=== PATIENT | male | born 1955 ===

== ENCOUNTER → 2020-04-07 10:55 | Outpatient (BNV) | payer MEDICARE, OTHER, SELFPAY | PROVIDERS: PCP Nurse Practitioner Family; Visit Provider Internal Medicine | DX: E83.119 Hemochromatosis, unspecified (principal) | CPT/HCPCS: 99212; 99213; 99214 ==

== ENCOUNTER 2020-04-09 11:04 | Outpatient (REF) | payer MEDICARE, OTHER, SELFPAY | END 2020-04-09 11:05 | disposition home or self-care (01) | LOC: HO.BBR 11:04 | PROVIDERS: Visit Provider Internal Medicine | DX: E83.110 Hereditary hemochromatosis (principal) | CPT/HCPCS: 99195 ==

== ENCOUNTER 2020-06-22 11:59 | Outpatient (REF) | payer MEDICARE, OTHER, SELFPAY | END 2020-06-22 12:00 | disposition home or self-care (01) | LOC: HO.BBR 11:59 | PROVIDERS: Visit Provider Internal Medicine | DX: Z13.89 Encounter for screening for other disorder (principal) ==

== ENCOUNTER 2020-07-15 07:32 | Outpatient (REF) | payer MEDICARE, OTHER, SELFPAY ==
[2020-07-15 08:27] LABS: Alanine Aminotransferase 23 U/L (0-40); Albumin Level 4.2 g/dL (3.5-5.0); Alkaline Phosphatase 55 U/L (39-117); Anion Gap 11 (12-20); Aspartate Amino Transferase 16 U/L (5-37); Bilirubin Total 0.4 mg/dL (0.0-1.0); Blood Urea Nitrogen 22 mg/dL (9-16); Calcium 9.1 mg/dL (8.4-10.2); Carbon Dioxide 28 mmol/L (22-29); Chloride 107 mmol/L (96-108); Cholesterol 166 mg/dL; Estimated Glomerular Filt Rate 51; Glucose Fasting 112 mg/dL (60-99); HDL Cholesterol 36 mg/dL; LDL Cholesterol Calculated 108 mg/dl; Potassium 4.3 mmol/l (3.3-5.1); Sodium 142 mmol/L (135-145); Total Protein 6.7 g/dL (6.5-8.0); Triglycerides 114 mg/dL
[2020-07-15 08:49] LABS: TSH reflex Free T4 2.46 mIU/mL (0.32-4.0)
== END 2020-07-15 07:33 | disposition home or self-care (01) ==
LOC: HO.LAB 07:32
PROVIDERS: PCP Nurse Practitioner Family; Visit Provider Nurse Practitioner Family
DX: E78.5 Hyperlipidemia, unspecified (principal)
CPT/HCPCS: 36415; 80053; 80061; 84443

== ENCOUNTER 2020-10-21 12:02 | Outpatient (REF) | payer MEDICARE, OTHER, SELFPAY | END 2020-10-21 12:03 | disposition home or self-care (01) | LOC: HO.ONC 12:02 | PROVIDERS: Visit Provider Internal Medicine | DX: Z13.89 Encounter for screening for other disorder (principal) ==

== ENCOUNTER 2021-05-18 07:48 | Outpatient (REF) | payer MEDICARE, OTHER, SELFPAY ==
[2021-05-18 10:37] LABS: Appearance Urine CLEAR; Color Urine YELLOW; Glucose Urine UA NEG (NEG); Leukocyte Esterase Urine NEG (NEG); Nitrite Urine NEG (NEG); Specific Gravity - Urine 1.015 (1.005-1.025); UACC Culture Trigger NO; Urine Blood TRACE (NEG); Urine Ketones NEG (NEG); Urine Protein NEG (NEG-TRACE)
[2021-05-18 10:39] LABS: Alanine Aminotransferase 25 U/L (0-40); Albumin Level 4.3 g/dL (3.5-5.0); Alkaline Phosphatase 49 U/L (39-117); Anion Gap 13 (12-20); Aspartate Amino Transferase 21 U/L (5-37); Bilirubin Total 0.9 mg/dL (0.0-1.0); Blood Urea Nitrogen 19 mg/dL (9-16); Calcium 9.4 mg/dL (8.4-10.2); Carbon Dioxide 25 mmol/L (22-29); Chloride 107 mmol/L (96-108); Cholesterol 171 mg/dL; Estimated Glomerular Filt Rate 57; Glucose Fasting 103 mg/dL (60-99); HDL Cholesterol 39 mg/dL; LDL Cholesterol Calculated 116 mg/dl; Potassium 4.2 mmol/L (3.3-5.1); Sodium 141 mmol/L (135-145); Total Protein 6.7 g/dL (6.5-8.0); Triglycerides 82 mg/dL
[2021-05-18 10:44] LABS: TSH reflex Free T4 2.11 uIU/mL (0.32-4.0)
[2021-05-18 10:50] LABS: RBC Urine 0-2 /HPF (0); WBC Urine 0 /HPF (0-4)
== END 2021-05-18 07:49 | disposition home or self-care (01) ==
LOC: HO.10HDL 07:48
PROVIDERS: Visit Provider Nurse Practitioner Family
DX: E78.5 Hyperlipidemia, unspecified (principal)
CPT/HCPCS: 36415; 80053; 80061; 81001; 84443

== ENCOUNTER 2021-06-24 11:02 | Outpatient (REF) | payer MEDICARE, OTHER, SELFPAY ==
[2021-06-24 14:01] LABS: Appearance Urine CLEAR; Glucose Urine UA NEG (NEG); Leukocyte Esterase Urine NEG (NEG); Nitrite Urine NEG (NEG); Specific Gravity - Urine <= 1.005 (1.005-1.025); Urine Blood TRACE (NEG); Urine Ketones NEG (NEG); Urine Protein NEG (NEG-TRACE)
[2021-06-24 14:20] LABS: RBC Urine 0 /HPF (0); WBC Urine 0 /HPF (0-4)
[2021-06-25 07:24] LABS: Urine Cytology See Pathology rpt
== END 2021-06-24 11:03 | disposition home or self-care (01) ==
LOC: HO.10HDL 11:02
PROVIDERS: Visit Provider Nurse Practitioner Family
DX: R31.29 Other microscopic hematuria (principal)
CPT/HCPCS: 81001; 87086; 88112

== ENCOUNTER 2021-11-30 07:30 | Outpatient (REF) | payer MEDICARE, OTHER, SELFPAY ==
[2021-11-30 07:49] LABS: MANUAL DIFF FLAG NO
[2021-11-30 08:19] LABS: Basophils Percent Auto 0.5 % (0-2); Eosinophils Absolute Auto 0.2 X10*3/uL (0.0-0.4); Eosinophils Percent Auto 3.3 % (0-4); Hematocrit 45.6 % (42.0-52.0); Hemoglobin 15.7 g/dl (14.0-18.0); Imm Gran Abs Auto 0.02 X10*3/uL (0.00-0.03); Imm Gran Pct Auto 0.3 % (0.0-0.4); Lymphocytes Percent Auto 32.4 % (20-40); Mean Corpuscular HGB Conc 34.4 g/dl (31.0-36.0); Mean Corpuscular Hemoglobin 29.6 pg (27.0-33.0); Mean Corpuscular Volume 85.9 fL (80.0-98.0); Monocytes Absolute Auto 0.5 X10*3/uL (0.1-1.2); Monocytes Percent Auto 7.8 % (2-11); Neutrophils Absolute Auto 3.4 x10*3/uL (2.0-8.3); Neutrophils Percent Auto 55.7 % (45-73); Platelet Count 176 X10*3/uL (160-400); Red Blood Count 5.31 X10*6/uL (4.60-5.80); Red Cell Distribution Width 12.5 % (11.0-16.0); White Blood Count 6.1 X10*3/uL (4.8-10.8)
[2021-11-30 08:32] LABS: Appearance Urine CLEAR; Color Urine STRAW; Glucose Urine UA NEG (NEG); Leukocyte Esterase Urine NEG (NEG); Nitrite Urine NEG (NEG); UACC Culture Trigger NO; Urine Blood 1+ (NEG); Urine Ketones NEG (NEG); Urine Protein NEG (NEG-TRACE)
[2021-11-30 08:36] LABS: Alanine Aminotransferase 29 U/L (0-40); Albumin Level 4.3 g/dL (3.5-5.0); Alkaline Phosphatase 48 U/L (39-117); Anion Gap 11 (12-20); Aspartate Amino Transferase 23 U/L (5-37); Bilirubin Total 0.8 mg/dL (0.0-1.0); Blood Urea Nitrogen 22 mg/dL (9-16); Calcium 9.3 mg/dL (8.4-10.2); Carbon Dioxide 26 mmol/L (22-29); Chloride 107 mmol/L (96-108); Cholesterol 170 mg/dL; Estimated Glomerular Filt Rate 46; Glucose Fasting 104 mg/dL (60-99); HDL Cholesterol 40 mg/dL; LDL Cholesterol Calculated 117 mg/dl; Potassium 4.2 mmol/L (3.3-5.1); Sodium 140 mmol/L (135-145); Total Protein 6.8 g/dL (6.5-8.0); Triglycerides 67 mg/dL
[2021-11-30 08:56] LABS: Sperm Urine NOTED; WBC Urine 0 /HPF (0-4)
[2021-11-30 09:00] LABS: Prostate Specific Antigen Scr 0.43 ng/mL (<0.05-4.0); TSH reflex Free T4 1.63 uIU/mL (0.32-4.0); Vitamin D 25-OH Total 41.9 ng/mL (>30)
== END 2021-11-30 07:31 | disposition home or self-care (01) ==
LOC: HO.LAB 07:30
PROVIDERS: PCP Nurse Practitioner Family; Visit Provider Nurse Practitioner Family
DX: Z12.5 Encounter for screening for malignant neoplasm of prostate (principal); E78.5 Hyperlipidemia, unspecified; E55.9 Vitamin D deficiency, unspecified
CPT/HCPCS: 36415; 80053; 80061; 81001; 82306; 84153; 84443; 85025

== ENCOUNTER 2021-12-01 15:01 | Outpatient (REF) | payer MEDICARE, OTHER, SELFPAY ==
[2021-12-01 16:05] LABS: Blood Urea Nitrogen 18 mg/dL (9-16); Estimated Glomerular Filt Rate 56
== END 2021-12-01 15:02 | disposition home or self-care (01) ==
LOC: HO.LAB 15:01
PROVIDERS: Visit Provider Nurse Practitioner Family
DX: R79.89 Other specified abnormal findings of blood chemistry (principal)
CPT/HCPCS: 36415; 82565; 84520

== ENCOUNTER 2021-12-02 | Outpatient (REF) | payer MEDICARE, OTHER, SELFPAY ==
[2021-12-02 14:40] LABS: Appearance Urine CLEAR; Color Urine YELLOW; Glucose Urine UA NEG (NEG); Leukocyte Esterase Urine NEG (NEG); Nitrite Urine NEG (NEG); Specific Gravity - Urine 1.015 (1.005-1.025); UACC Culture Trigger NO; Urine Blood TRACE (NEG); Urine Ketones NEG (NEG); Urine Protein NEG (NEG-TRACE)
[2021-12-02 14:52] LABS: RBC Urine 0 /HPF (0); WBC Urine 0 /HPF (0-4)
== END 2021-12-02 00:01 | disposition home or self-care (01) ==
LOC: HO.LNP
PROVIDERS: Visit Provider Nurse Practitioner Family
DX: E78.5 Hyperlipidemia, unspecified (principal)
CPT/HCPCS: 81001

== ENCOUNTER 2022-01-26 09:04 | Outpatient (REF) | payer MEDICARE, OTHER, SELFPAY ==
[2022-01-27 17:07] LABS: Lyme Abs Screen <0.90 index
[2022-01-28 13:17] LABS: A. Phagocytphilium DNA,RT-PCR NOT DETECTED (NOT DETECTED); Babesia Microti DNA, RT-PCR NOT DETECTED (NOT DETECTED); Borrelia Miyamotoi,DNA RT-PCR NOT DETECTED (NOT DETECTED); E.Chaffeensis DNA RT-PCR NOT DETECTED (NOT DETECTED); Lyme(Borrelia ssp)DNA RT-PCR NOT DETECTED (NOT DETECTED)
[2022-01-29 06:56] LABS: Source-Tick borne disease BLOOD
== END 2022-01-26 09:05 | disposition home or self-care (01) ==
LOC: HO.HMGCLDS 09:04
PROVIDERS: PCP Nurse Practitioner Family; Visit Provider Physician Assistant
DX: R21 Rash and other nonspecific skin eruption (principal)
CPT/HCPCS: 36415; 86617; 86618; 87798; 87801

== ENCOUNTER 2022-02-08 13:19 | Outpatient (REF) | payer MEDICARE, OTHER, SELFPAY ==
[2022-02-08 14:01] LABS: Basophils Percent Auto 0.5 % (0-2); Eosinophils Absolute Auto 0.1 X10*3/uL (0.0-0.4); Eosinophils Percent Auto 1.5 % (0-4); Hematocrit 47.6 % (42.0-52.0); Hemoglobin 16.4 g/dl (14.0-18.0); Imm Gran Abs Auto 0.03 X10*3/uL (0.00-0.03); Imm Gran Pct Auto 0.5 % (0.0-0.4); Lymphocytes Absolute Auto 1.6 X10*3/uL (1.2-4.9); Lymphocytes Percent Auto 26.7 % (20-40); MANUAL DIFF FLAG SCAN; Mean Corpuscular HGB Conc 34.5 g/dl (31.0-36.0); Mean Corpuscular Hemoglobin 29.6 pg (27.0-33.0); Mean Corpuscular Volume 85.9 fL (80.0-98.0); Monocytes Absolute Auto 0.4 X10*3/uL (0.1-1.2); Monocytes Percent Auto 6.3 % (2-11); Neutrophils Absolute Auto 3.9 x10*3/uL (2.0-8.3); Neutrophils Percent Auto 64.5 % (45-73); PLT CLUMP 1; Red Blood Count 5.54 X10*6/uL (4.60-5.80); Red Cell Distribution Width 12.5 % (11.0-16.0); SCAN SMEAR FLAG 1
[2022-02-08 14:24] LABS: SLIDE REVIEW VERIFIED
[2022-02-08 14:25] LABS: Anion Gap 15 (12-20); Blood Urea Nitrogen 18 mg/dL (9-16); Calcium 9.4 mg/dL (8.4-10.2); Carbon Dioxide 26 mmol/L (22-29); Chloride 105 mmol/L (96-108); Estimated Glomerular Filt Rate 50; Glucose Random 127 mg/dL (60-115); Potassium 4.4 mmol/L (3.3-5.1); Sodium 142 mmol/L (135-145)
[2022-02-08 16:37] LABS: Creatinine Urine 24.71 mg/dL; Total Protein Urine Random < 7 mg/dL (<12)
[2022-02-09 16:47] LABS: Complement C3 126 mg/dL (82-185)
[2022-02-10 11:37] LABS: Streptolysin O Antibody <50 IU/mL (<200)
[2022-02-10 14:21] LABS: Anti Glomerular Basement Memb <1.0 AI
[2022-02-11 09:17] LABS: Anti Nuclear Antibody Screen NEGATIVE (NEGATIVE)
== END 2022-02-08 13:20 | disposition home or self-care (01) ==
LOC: HO.LAB 13:19
PROVIDERS: PCP Nurse Practitioner Family; Visit Provider Internal Medicine Hypertension Specialist
DX: R31.21 Asymptomatic microscopic hematuria (principal); N18.2 Chronic kidney disease, stage 2 (mild)
CPT/HCPCS: 36415; 80048; 83520; 84156; 85025; 86038; 86039; 86060; 86160

== ENCOUNTER 2022-04-01 14:44 | Outpatient (REF) | payer MEDICARE, OTHER, SELFPAY ==
--- NOTE | ~2022-04-01 | US_ITS ---
EXAMINATION: US RETROPERITONEAL LIMITED (RENAL ONLY) CLINICAL INFORMATION: CKG stage 2. Microscopic hematuria. COMPARISON: CT abdomen and pelvis 02/12/2020. TECHNIQUE: Real-time imaging of the kidneys. FINDINGS: RIGHT KIDNEY: 10.0 x 4.0 x 5.4 cm (SAG x AP x TRV). The kidney is normal in size, contour, and echogenicity. Renal cortical thickness is normal. No calculi or focal parenchymal lesions. No hydronephrosis. LEFT KIDNEY: 11.1 x 5.7 x 5.2 cm (SAG x AP x TRV). The kidney is normal in size, contour, and echogenicity. Renal cortical thickness is normal. There is a 1.5 x 1 x 1.8 cm cyst in the upper pole. No renal calculi or hydronephrosis. US/US renal BI IMPRESSION: Small left renal cyst. Otherwise unremarkable exam..
== END 2022-04-01 14:45 | disposition home or self-care (01) ==
LOC: HO.US 14:44
PROVIDERS: Visit Provider Internal Medicine Hypertension Specialist
DX: N18.2 Chronic kidney disease, stage 2 (mild) (principal); R31.21 Asymptomatic microscopic hematuria
CPT/HCPCS: 76775

== ENCOUNTER 2022-06-24 07:23 | Outpatient (REF) | payer MEDICARE, OTHER, SELFPAY ==
[2022-06-24 07:32] LABS: MANUAL DIFF FLAG NO
[2022-06-24 07:48] LABS: Basophils Absolute Auto 0.1 X10*3/uL (0.0-0.2); Basophils Percent Auto 0.9 % (0-2); Eosinophils Absolute Auto 0.2 X10*3/uL (0.0-0.4); Eosinophils Percent Auto 3.1 % (0-4); Hematocrit 46.2 % (42.0-52.0); Hemoglobin 15.9 g/dl (14.0-18.0); Imm Gran Abs Auto 0.02 X10*3/uL (0.00-0.03); Imm Gran Pct Auto 0.3 % (0.0-0.4); Lymphocytes Absolute Auto 2.1 X10*3/uL (1.2-4.9); Lymphocytes Percent Auto 29.2 % (20-40); Mean Corpuscular HGB Conc 34.4 g/dl (31.0-36.0); Mean Corpuscular Hemoglobin 29.5 pg (27.0-33.0); Mean Corpuscular Volume 85.7 fL (80.0-98.0); Mean Platelet Volume 9.7 fL (9.4-12.4); Monocytes Absolute Auto 0.6 X10*3/uL (0.1-1.2); Monocytes Percent Auto 8.8 % (2-11); Neutrophils Absolute Auto 4.1 x10*3/uL (2.0-8.3); Neutrophils Percent Auto 57.7 % (45-73); Platelet Count 196 X10*3/uL (160-400); Red Blood Count 5.39 X10*6/uL (4.60-5.80); Red Cell Distribution Width 12.5 % (11.0-16.0); White Blood Count 7.1 X10*3/uL (4.8-10.8)
[2022-06-24 08:41] LABS: Alanine Aminotransferase 46 U/L (0-40); Albumin Level 4.3 g/dL (3.5-5.0); Alkaline Phosphatase 49 U/L (39-117); Anion Gap 11 (12-20); Aspartate Amino Transferase 27 U/L (5-37); Bilirubin Total 1.1 mg/dL (0.0-1.0); Blood Urea Nitrogen 22 mg/dL (9-16); Calcium 9.6 mg/dL (8.4-10.2); Carbon Dioxide 27 mmol/L (22-29); Chloride 107 mmol/L (96-108); Cholesterol 170 mg/dL; Estimated Glomerular Filt Rate 53; Glucose Fasting 104 mg/dL (60-99); Potassium 4.1 mmol/L (3.3-5.1); Sodium 141 mmol/L (135-145); Total Protein 6.6 g/dL (6.5-8.0); Triglycerides 83 mg/dL
[2022-06-24 09:26] LABS: HDL Cholesterol 46 mg/dL; LDL Cholesterol Calculated 108 mg/dl
[2022-06-24 10:06] LABS: Appearance Urine Clear; Color Urine Yellow; Glucose Urine UA Negative (Negative); Leukocyte Esterase Urine Negative (Negative); Nitrite Urine Negative (Negative); PH 6.5 (5.0-9.0); UMIC TRIGGER UACC YES; Urine Blood Trace (Negative); Urine Ketones Negative (Negative); Urine Protein Negative (Neg-Trace)
[2022-06-24 10:11] LABS: Bacteria Urine None Seen (None Seen); Hyaline Casts Urine 0-2 /LPF (0-2); RBC Urine 0-2 /HPF (0-2); Squamous Epithelial Cell Urine 0-2 /HPF (0-2); WBC Urine 0-5 /HPF (0-5)
== END 2022-06-24 07:24 | disposition home or self-care (01) ==
LOC: HO.LAB 07:23
PROVIDERS: PCP Nurse Practitioner Family; Visit Provider Nurse Practitioner Family
DX: E78.5 Hyperlipidemia, unspecified (principal)
CPT/HCPCS: 36415; 80053; 80061; 81001; 81003; 84443; 85025

== ENCOUNTER 2022-07-14 09:44 | Outpatient (REF) | payer MEDICARE, OTHER, SELFPAY ==
--- NOTE | ~2022-07-14 | US_ITS ---
EXAMINATION: US ABDOMEN COMPLETE CLINICAL INFORMATION: Abnormal levels of other serum enzymes. COMPARISON: Renal ultrasound 04/01/2022 and 02/27/2007. CT abdomen and pelvis 02/12/2020. TECHNIQUE: Real-time imaging of the abdominal viscera. FINDINGS: PANCREAS: Normal. ABDOMINAL AORTA: There are atherosclerotic calcifications. The proximal and distal segments are normal in caliber. The mid segment is obscured by overlapping bowel gas. INFERIOR VENA CAVA: Visualized portions are normal. LIVER: Normal. The liver is normal in size. The liver contour is normal. Parenchymal echogenicity is normal. No focal hepatic lesion. There is no intrahepatic biliary duct dilatation seen. GALLBLADDER: Normal. The gallbladder is physiologically distended without evidence of stones, sludge, polyps, wall thickening or pericholecystic fluid. COMMON BILE DUCT: Normal in caliber measuring 0.5 cm in diameter. RIGHT KIDNEY: Normal. No hydronephrosis. No renal calculi or focal parenchymal lesions. The kidney measures 10.4 cm in maximum dimension. LEFT KIDNEY: Normal. No hydronephrosis. No renal calculi or focal parenchymal lesions. The kidney measures 11.7 cm in maximum dimension. SPLEEN: Normal. The spleen measures 10.4 cm in maximum dimension. FREE FLUID: None. US/US abdomen complete IMPRESSION: Unremarkable examination. No hepatic mass, alteration in hepatic echotexture or biliary ductal dilatation is seen.
== END 2022-07-14 09:45 | disposition home or self-care (01) ==
LOC: HO.US 09:44
PROVIDERS: PCP Nurse Practitioner Family; Visit Provider Nurse Practitioner Family
DX: R74.8 Abnormal levels of other serum enzymes (principal)
CPT/HCPCS: 76700

== ENCOUNTER 2022-07-19 13:56 | Outpatient (REF) | payer MEDICARE, OTHER, SELFPAY ==
[2022-07-19 15:10] LABS: Appearance Urine Clear; Color Urine Yellow; Glucose Urine UA Negative (Negative); Leukocyte Esterase Urine Negative (Negative); Nitrite Urine Negative (Negative); PH 5.5 (5.0-9.0); UMIC TRIGGER UACC YES; Urine Blood Trace (Negative); Urine Ketones Negative (Negative); Urine Protein Negative (Neg-Trace)
[2022-07-19 15:12] LABS: Bacteria Urine None Seen (None Seen); Hyaline Casts Urine 0-2 /LPF (0-2); RBC Urine 0-2 /HPF (0-2); Squamous Epithelial Cell Urine 0-2 /HPF (0-2); WBC Urine 0-5 /HPF (0-5)
[2022-07-20 08:42] LABS: HBS Num1 107.34 mIU/mL (0-7.99); HBc Num1 0.06 S/CO (0.00-0.79); HBsAGNum1 0.29 S/CO (0.00-0.99); Hepatitis A Antibody IgM 0.21 Index (0-0.79); Hepatitis B Core Antibody Nonreactive (Nonreactive); Hepatitis B Surface Antigen Negative (Negative); ~HepC Num1 0.07 S/CO (0.00-0.79); ~Hepatitis A Antibody IgM Nonreactive (Nonreactive); ~Hepatitis B Surface Antibody REACTIVE (Nonreactive); ~Hepatitis C Antibody Nonreactive (Nonreactive)
== END 2022-07-19 13:57 | disposition home or self-care (01) ==
LOC: HO.LAB 13:56
PROVIDERS: PCP Nurse Practitioner Family; Visit Provider Nurse Practitioner Family
DX: R74.8 Abnormal levels of other serum enzymes (principal)
CPT/HCPCS: 36415; 81001; 86704; 86706; 86709; 86803; 87340

== ENCOUNTER 2022-11-01 11:48 | Outpatient (REF) | payer MEDICARE, OTHER, SELFPAY ==
[2022-11-01 13:51] LABS: Anion Gap 10 (12-20); Blood Urea Nitrogen 21 mg/dL (9-16); Calcium 9.5 mg/dL (8.4-10.2); Carbon Dioxide 26 mmol/L (22-29); Chloride 109 mmol/L (96-108); Estimated Glomerular Filt Rate 53; Glucose Random 94 mg/dL (60-115); Potassium 4.4 mmol/L (3.3-5.1); Sodium 141 mmol/L (135-145)
== END 2022-11-01 11:49 | disposition home or self-care (01) ==
LOC: HO.10HDL 11:48
PROVIDERS: Visit Provider Internal Medicine Hypertension Specialist
DX: N18.31 Chronic kidney disease, stage 3a (principal)
CPT/HCPCS: 36415; 80048

== ENCOUNTER → 2022-12-22 09:21 | Outpatient (BNVA) | payer MEDICARE, OTHER, SELFPAY | PROVIDERS: PCP Nurse Practitioner Family; Visit Provider Psychiatry & Neurology Neurology | DX: G20 Parkinson's disease (principal) | CPT/HCPCS: 99202 ==

== ENCOUNTER 2023-02-06 13:03 | Outpatient (AMB) | payer MEDICARE, OTHER, SELFPAY ==
--- NOTE | 2023-02-06 13:07 | MHC.PC.OV ---
Vital Signs 02/06/23 13:08 Height 5 ft 10 in Weight 172 lb 4 oz BMI 24.7 BP 100/64 Blood Pressure Location Lt brachial Position Sitting Pulse 76 Pulse Source Pulse Oximeter Pulse Oximetry (%) 97 Oxygen Delivery Method Room Air Intake Visit Reasons: 6 month follow up Allergies No Known Allergies Allergy (Verified 02/06/23 14:02) Medication List - Last Reconciled 02/06/23 by CLEOPATRA Melton atorvastatin 20 mg PO DAILY 90 days cholecalciferol (vitamin D3) 25 mcg PO DAILY finasteride 5 mg PO DAILY omeprazole 20 mg PO DAILY tamsulosin 0.4 mg PO BID Tobacco use date assessed: 02/06/23 Fall risk assessment: No Falls in past year Last assessed Fall Risk: 02/06/23 Dental Screening Dental Screen Date: 02/06/23 Did you have a dental visit in the last 12 months?: Yes Did you have a dental problem in the last 6 months where you did not have access to dental care?: No Was dental information given to patient?: Patient has dentist HPI 6 month follow up HPI Details Pt c/o ringing in his left ear. He reports that this has been ongoing and is a lower sound. Will refer for hearing test. Left ear lavage done in office today. Denies fever, chills, and dizziness. Pt also c/o left heel pain. He reports that this is sometimes worse in the morning. Will order xr, though ? a PF component. dyslipidemia: on statin, will recheck lipids [facility] Medical History (Updated 02/06/23 @ 14:00 by CLEOPATRA Melton) BPH (benign prostatic hyperplasia) Hereditary hemochromatosis High cholesterol OAB (overactive bladder) Parkinsons Rash Surgical History No pertinent past surgical history Family History Father Stomach cancer Paternal Aunt Stomach cancer Paternal Uncle Stomach cancer Mother HTN (hypertension) Heart disease Sister No problems noted. Son No problems noted. Son No problems noted. Social History Household Members: Spouse Housing: House Are you a primary critical care paramedic to a significant other at home: No Do you presently have visiting nurse or other home services: No Alcohol intake: current Alcohol intake frequency: a few times a month Alcohol type: beer Patient Tobacco Use Status: Never used Tobacco e-Cigarette/Vaping Use: Never Used service: No Current occupational status: retired Cognitive needs: No Hearing needs: No Vision needs: Yes Questionnaire Thrive Questionnaire Date Thrive assessed: 11/09/21 LEANN-7 AMB Questionnaire LEANN-7 Date LEANN - 7 assessed: 11/09/21 Source: Developed by Drs. Gio Nowak, Olivia Sanchez, Kervin Meyers and colleagues, with an educational gerardo from [facility]. Review of Systems Const Reports as per HPI Physical exam (Primary Care) Vital Signs: Last Vital Signs Pulse 76 02/06/23 13:08 BP 100/64 02/06/23 13:08 Pulse Ox 97 02/06/23 13:08 Oxygen Delivery Method Room Air 02/06/23 13:08 BMI result Body Mass Index 24.7 Tobacco/Smoking Status: Tobacco use Status Tobacco use date assessed 02/06/23 02/06/23 13:16 Patient Tobacco Use Status Never used Tobacco 02/06/23 13:11 e-Cigarette/Vaping Use Never Used 02/06/23 13:11 Thrive Assessment: Date of Thrive Assessment Date Thrive assessed 11/09/21 02/06/23 13:11 Const General: cooperative Orientation/consciousness: patient oriented x3 HENMT Other: cerumen noted to left ear, after ear lavage TM easily seen Ears: TM normal on the right Resp Effort & Inspection: normal respiratory effort Auscultation: clear to auscultation bilaterally Cardio Rate: regular rate Rhythm: regular rhythm Heart sounds: S1 normal heart sound present and S2 normal heart sound present Neuro General: patient oriented x3 Extrem Other: no left heel pain with dorsi flexion of toes and palpation of heel Psych Appearance: grossly normal Mental Status: mental status grossly normal Speech and movement: Normal speech and movement present Affect: normal affect Attitude: cooperative Thought process: Normal thought process present Thought content: Normal thought content present Insight: Good insight present (Psych) Judgement: Good judgement present (Psych) Assessment and Plan Assessment & Plan (1) Ringing of ears: Code(s): H93.19 - Tinnitus, unspecified ear Plan: Referred for hearing test (2) Pain of left heel: Code(s): M79.672 - Pain in left foot Plan: XR ordered (3) Dyslipidemia: Code(s): E78.5 - Hyperlipidemia, unspecified (4) Cerumen impaction: Code(s): H61.20 - Impacted cerumen, unspecified ear Plan: left ear looks much better Plan The patient agreed to the use of a medical reimbursement manager for this encounter. Scribed for WILFREDO Downing-DAISY by Clemencia Bradley medical reimbursement manager, on 02/06/2023 at 13:20 EST. Orders: Orders XR calcaneus LT min 2V Today M79.672 - Pain in left foot Comprehensive [place]. Panel Fast Today E78.5 - Hyperlipidemia, unspecified Lipid Panel Today E78.5 - Hyperlipidemia, unspecified TSH reflex Free T4 Today E78.5 - Hyperlipidemia, unspecified Complete Blood Count Auto Diff Today E78.5 - Hyperlipidemia, unspecified UA CC w/rflx Micro + Cult Today E78.5 - Hyperlipidemia, unspecified Referrals Speech and Hearing Referral H93.19 - Tinnitus, unspecified ear Coding Level of Care Code Est Pt Level 3 (92496) Diagnoses Ringing of ears H93.19 Pain of left heel M79.672 Dyslipidemia E78.5 Cerumen impaction H61.20
[2023-02-06 13:08] VITALS: BP 100/64; PULSE 76; O2SAT 97; BMI 24.7
== END 2023-02-06 14:14 | disposition home or self-care (01) ==
PROVIDERS: PCP Nurse Practitioner Family; Visit Provider Nurse Practitioner Family
DX: H93.12 Tinnitus, left ear (principal); M79.672 Pain in left foot; E78.5 Hyperlipidemia, unspecified; H61.22 Impacted cerumen, left ear
CPT/HCPCS: 69209; 99213

== ENCOUNTER 2023-02-06 14:11 | Outpatient (REF) | payer MEDICARE, OTHER, SELFPAY ==
--- NOTE | ~2023-02-06 | XR_ITS ---
EXAMINATION: XR CALCANEUS, LEFT CLINICAL INFORMATION: Pain. COMPARISON: None available. TECHNIQUE: Lateral and axial views of the left calcaneus were obtained. FINDINGS: No acute fractures or malalignment. Nonspecific soft tissue thickening along the dorsal and plantar surface of the foot. No unexpected radiopaque foreign bodies. XR/XR calcaneus LT min 2V IMPRESSION: 1. No acute fractures or malalignment. 2. Nonspecific soft tissue thickening along the dorsal and plantar surface of the foot.
== END 2023-02-06 14:12 | disposition home or self-care (01) ==
LOC: HO.HMGCX 14:11
PROVIDERS: PCP Nurse Practitioner Family; Visit Provider Nurse Practitioner Family
DX: M79.672 Pain in left foot (principal)
CPT/HCPCS: 73650

== ENCOUNTER 2023-02-18 06:55 | Outpatient (REF) | payer MEDICARE, OTHER, SELFPAY ==
[2023-02-18 07:14] LABS: MANUAL DIFF FLAG NO
[2023-02-18 07:33] LABS: Basophils Percent Auto 0.6 % (0-2); Eosinophils Absolute Auto 0.1 X10*3/uL (0.0-0.4); Eosinophils Percent Auto 2.2 % (0-4); Hematocrit 47.1 % (42.0-52.0); Hemoglobin 16.6 g/dl (14.0-18.0); Imm Gran Abs Auto 0.02 X10*3/uL (0.00-0.03); Imm Gran Pct Auto 0.3 % (0.0-0.4); Lymphocytes Absolute Auto 1.9 X10*3/uL (1.2-4.9); Lymphocytes Percent Auto 29.8 % (20-40); Mean Corpuscular HGB Conc 35.2 g/dl (31.0-36.0); Mean Corpuscular Hemoglobin 30.6 pg (27.0-33.0); Mean Corpuscular Volume 86.7 fL (80.0-98.0); Mean Platelet Volume 9.8 fL (9.4-12.4); Monocytes Absolute Auto 0.5 X10*3/uL (0.1-1.2); Monocytes Percent Auto 8.1 % (2-11); Neutrophils Absolute Auto 3.7 x10*3/uL (2.0-8.3); Platelet Count 183 X10*3/uL (160-400); Red Blood Count 5.43 X10*6/uL (4.60-5.80); Red Cell Distribution Width 12.1 % (11.0-16.0); White Blood Count 6.3 X10*3/uL (4.8-10.8)
[2023-02-18 08:38] LABS: Alanine Aminotransferase 22 U/L (0-40); Albumin Level 4.4 g/dL (3.5-5.0); Alkaline Phosphatase 48 U/L (39-117); Anion Gap 13 (12-20); Aspartate Amino Transferase 18 U/L (5-37); Bilirubin Total 0.8 mg/dL (0.0-1.0); Blood Urea Nitrogen 23 mg/dL (9-16); Calcium 9.4 mg/dL (8.4-10.2); Carbon Dioxide 26 mmol/L (22-29); Chloride 107 mmol/L (96-108); Cholesterol 166 mg/dL (<200); Estimated Glomerular Filt Rate 55; Glucose Fasting 101 mg/dL (60-99); HDL Cholesterol 42 mg/dL (>40); LDL Cholesterol Calculated 113 mg/dL (<100); Potassium 4.1 mmol/L (3.3-5.1); Sodium 142 mmol/L (135-145); Total Protein 7.1 g/dL (6.5-8.0); Triglycerides 57 mg/dL (<150)
[2023-02-18 08:56] LABS: TSH reflex Free T4 2.04 uIU/mL (0.32-4.0)
[2023-02-18 09:53] LABS: Appearance Urine Clear; Color Urine Yellow; Glucose Urine UA Negative (Negative); Leukocyte Esterase Urine Negative (Negative); Nitrite Urine Negative (Negative); Urine Blood Negative (Negative); Urine Ketones Negative (Negative); Urine Protein Negative (Neg-Trace)
== END 2023-02-18 06:56 | disposition home or self-care (01) ==
LOC: HO.LAB 06:55
PROVIDERS: PCP Nurse Practitioner Family; Visit Provider Nurse Practitioner Family
DX: E78.5 Hyperlipidemia, unspecified (principal)
CPT/HCPCS: 36415; 80053; 80061; 81003; 84443; 85025

== ENCOUNTER 2023-05-15 10:12 | Outpatient (REF) | payer MEDICARE, OTHER, SELFPAY ==
[2023-05-15 11:56] LABS: Anion Gap 10 (12-20); Blood Urea Nitrogen 17 mg/dL (9-16); Calcium 9.3 mg/dL (8.4-10.2); Carbon Dioxide 28 mmol/L (22-29); Chloride 108 mmol/L (96-108); Estimated Glomerular Filt Rate > 60; Glucose Random 96 mg/dL (60-115); Potassium 3.9 mmol/L (3.3-5.1); Sodium 142 mmol/L (135-145)
[2023-05-15 12:07] LABS: Creatinine Urine 20.16 mg/dL; Total Protein Urine Random < 7 mg/dL (<12)
== END 2023-05-15 10:13 | disposition home or self-care (01) ==
LOC: HO.10HDL 10:12
PROVIDERS: Visit Provider Internal Medicine Hypertension Specialist
DX: R31.29 Other microscopic hematuria (principal)
CPT/HCPCS: 36415; 80048; 82570; 84156

== ENCOUNTER 2023-06-12 10:55 | Outpatient (AMB) | payer MEDICARE, OTHER, SELFPAY ==
[2023-06-12 10:59] VITALS: BP 115/70; PULSE 69; O2SAT 98; BMI 24.6
--- NOTE | 2023-06-12 10:59 | HO.NEPHOV ---
HPI HPI Comments History of Present Illness Details Middle-aged man with a history of Parkinson's disease and transient microscopic hematuria. He is here for follow-up. He continues to have bladder dysfunction. He has an implant and has follow-up with Urology as well. He has had no gross hematuria. No increased frequency. [facility] Medical History Parkinsons Rash Hereditary hemochromatosis OAB (overactive bladder) BPH (benign prostatic hyperplasia) High cholesterol Surgical History No pertinent past surgical history Family History Father Stomach cancer Paternal Aunt Stomach cancer Paternal Uncle Stomach cancer Mother HTN (hypertension) Heart disease Sister No problems noted. Son No problems noted. Son No problems noted. Social History Household Members: Spouse Housing: House Are you a primary career resource technician to a significant other at home: No Do you presently have visiting nurse or other home services: No Alcohol intake: current Alcohol intake frequency: a few times a month Alcohol type: beer Patient Tobacco Use Status: Never used Tobacco e-Cigarette/Vaping Use: Never Used service: No Current occupational status: retired Cognitive needs: No Hearing needs: No Vision needs: Yes Vital Signs 06/12/23 10:59 Height 5 ft 10 in Weight 171 lb 8 oz BMI 24.6 BP 115/70 Blood Pressure Location Lt brachial Position Sitting Pulse 69 Pulse Source Pulse Oximeter Pulse Oximetry (%) 98 Oxygen Delivery Method Room Air Physical Exam Vital Signs: Last Vital Signs Pulse 69 06/12/23 10:59 BP 115/70 06/12/23 10:59 Pulse Ox 98 06/12/23 10:59 Oxygen Delivery Method Room Air 06/12/23 10:59 BMI result Body Mass Index 24.6 Const General: comfortable Nutritional Appearance: well nourished Orientation/consciousness: patient oriented x3 HEENT Head: No normal to inspection Mouth: moist mucous membranes Neck Neck: Yes supple and Yes no JVD Resp Auscultation: clear to auscultation bilaterally, no rales and rub present Cardio Jugular venous distension: no JVD Palpation: no palpable S3 and no palpable S4 Heart sounds: no rubs GI Palpation (GI): Soft to palpation and nontender Percussion: No Fluid wave present General: Yes no CVA tenderness Back/Spine/Pelvis Back: no CVA tenderness Skin General skin exam: no rashes or lesions noted Neuro General: patient oriented x3 Extrem General: Yes no pedal edema and No clubbing Assessment & Plan Assessment & Plan (1) Elevated serum creatinine: Code(s): R79.89 - Other specified abnormal findings of blood chemistry Plan: Serum creatinine is close to baseline at 1.2. 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 Increase him to stay on low-sodium diet. Increase p.o. fluid intake. Avoid nephrotoxic agents including NSAIDs. No significant hematuria by recent dipstick. No significant proteinuria. Orders: Orders Blood Urea Nitrogen 11 Months N18.9 - Chronic kidney disease, unspecified, R31.29 - Other microscopic hematuria Creatinine 11 Months N18.9 - Chronic kidney disease, unspecified, R31.29 - Other microscopic hematuria Calcium 11 Months N18.9 - Chronic kidney disease, unspecified, R31.29 - Other microscopic hematuria Electrolytes 11 Months N18.9 - Chronic kidney disease, unspecified, R31.29 - Other microscopic hematuria UA and rflx microscopic 11 Months N18.9 - Chronic kidney disease, unspecified, R31.29 - Other microscopic hematuria Coding Level of Care Code Est Pt Level 3 (73999) Diagnoses Elevated serum creatinine R79.89 Results Reviewed Nephrology Results: Hgb 16.6 g/dl (14.0-18.0) 02/18/23 WBC 6.3 X10*3/uL (4.8-10.8) 02/18/23 Plt Count 183 X10*3/uL (160-400) 02/18/23 Sodium 142 mmol/L (135-145) 05/15/23 Potassium 3.9 mmol/L (3.3-5.1) 05/15/23 Chloride 108 mmol/L (96-108) 05/15/23 Carbon Dioxide 28 mmol/L (22-29) 05/15/23 BUN 17 mg/dL (9-16) H 05/15/23 Creatinine 1.20 mg/dL (0.5-1.4) 05/15/23 Calcium 9.3 mg/dL (8.4-10.2) 05/15/23 Urine Protein Negative mg/dL (Neg-Trace) 02/18/23 Urine Creatinine 20.16 mg/dL 05/15/23 Protein/Creatinin Ratio TNP 05/15/23 Renal US 04/01/22
== END 2023-06-12 11:19 | disposition home or self-care (01) ==
PROVIDERS: PCP Nurse Practitioner Family; Visit Provider Internal Medicine Hypertension Specialist
DX: R79.89 Other specified abnormal findings of blood chemistry (principal)
CPT/HCPCS: 99213

== ENCOUNTER → 2023-06-12 10:55 | Outpatient (BNVA) | payer MEDICARE, OTHER, SELFPAY | PROVIDERS: PCP Nurse Practitioner Family; Visit Provider Internal Medicine Hypertension Specialist | DX: R79.89 Other specified abnormal findings of blood chemistry (principal) | CPT/HCPCS: 99212 ==

== ENCOUNTER 2023-06-13 13:21 | Outpatient (REF) | payer MEDICARE, OTHER, SELFPAY | END 2023-06-13 13:22 | disposition home or self-care (01) | LOC: HO.SH 13:21 | PROVIDERS: Visit Provider Nurse Practitioner Family | DX: Z01.118 Encounter for examination of ears and hearing with other abnormal findings (principal); H90.6 Mixed conductive and sensorineural hearing loss, bilateral | CPT/HCPCS: 92557; 92567 ==

== ENCOUNTER 2023-06-27 09:03 | Outpatient (AMB) | payer MEDICARE, OTHER, SELFPAY ==
--- NOTE | 2023-06-27 09:06 | A.OFFVIS_ITS ---
Intake Vital Signs 06/27/23 09:11 Height 5 ft 10 in Weight 175 lb 4 oz BMI 25.1 BP 118/76 Blood Pressure Location Rt brachial Position Sitting Respiration 17 Pulse 88 Pulse Source Pulse Oximeter Pulse Oximetry (%) 98 Oxygen Delivery Method Room Air Intake Visit Reasons: 6 f/u Tremors - LVM appt needs r/s Intake Note: Pt presents for a 6 month follow up for tremors. Pt reports increase in tremors while driving x 4 months. Conveyor Installer Required: No Allergies No Known Allergies Allergy (Verified 06/27/23 09:11) HPI HPI Comments History of Present Illness Details 68y/o right handed male comes for follow up regarding parkinsons.His DOROTEO scan was negative . He denies nay worsening He is starting PT in 2 weeks He starting noticing in his right hand about 2 years ago. The tremors are mostly at rest and has worsened since then . he was seen by about 18 months ago and he was diagnosed with parkinsons. Cognition- normal Mood- normal Sleep- trouble going back to sleep when he wakes up at 5 AM . No vivid dreams or acting out dreams. He is motivated. Speech- softer No drooling Handwriting- no change as per patient No stiffness No difficulty with utensils, dressing, showering No difficulty changing positions in bed. Gait normal No falls No dizziness No hallucinations Normal bowel movements. No exposure to pesticides, well water, chemicals No head injury [facility] Medical History Parkinsons Rash Hereditary hemochromatosis OAB (overactive bladder) BPH (benign prostatic hyperplasia) High cholesterol Surgical History No pertinent past surgical history Family History Father Stomach cancer Paternal Aunt Stomach cancer Paternal Uncle Stomach cancer Mother HTN (hypertension) Heart disease Sister No problems noted. Son No problems noted. Son No problems noted. Social History Household Members: Spouse Housing: House Are you a primary rn urgent care to a significant other at home: No Do you presently have visiting nurse or other home services: No Alcohol intake: current Alcohol intake frequency: a few times a month Alcohol type: beer Patient Tobacco Use Status: Never used Tobacco e-Cigarette/Vaping Use: Never Used service: No Current occupational status: retired Cognitive needs: No Hearing needs: No Vision needs: Yes Physical Exam Vital Signs: Last Vital Signs Pulse 88 06/27/23 09:11 Resp 17 06/27/23 09:11 BP 118/76 06/27/23 09:11 Pulse Ox 98 06/27/23 09:11 Oxygen Delivery Method Room Air 06/27/23 09:11 BMI result Body Mass Index 25.1 Const General: cooperative, healthy appearing, comfortable and no acute distress Nutritional Appearance: average body habitus Orientation/consciousness: patient oriented x3 Limitations: no limitations Eyes Pupils: Equal, round and reactive pupils present Neuro Other: very mild decreased blink facial expression, stoop, hypophonia right UE intermittent rest tremors moderate amplitude gait - decreased arm swing right UE Cog wheel rigidty 1 = right UE FFM and foot taps normal General: patient oriented x3, moves all extremities and no focal motor deficits Cranial nerves: Yes Facial sensation intact/muscles of mastication intact, Yes Equal, round and reactive pupils present, Yes Nystagmus not present, Yes Normal facial strength present and Yes Midline tongue present Cognition (Neuro): normal cognition Gait exam (Neuro): Other gait observations present (normal stride, mild stoop, decreased right arm swing) Motor exam (neuro): 5/5 motor strength present throughout Deep tendon reflexes (DTR's): Right triceps reflex intensity grade: 1+, Left triceps reflex intensity grade: 1+, Rt Biceps (C5, C6): 1+, Left biceps reflex intensity grade: 1+, Right brachioradialis reflex intensity grade: 1+, Left bra chioradialis reflex intensity grade: 1+, Right patellar reflex intensity grade: 1+ and Left patellar reflex intensity grade: 1+ Coordination: [id number] test normal Assessment & Plan Assessment & Plan (1) Parkinson's disease: Comment: tremor predominant Code(s): G20 - Parkinson's disease Plan Discussed various management options He declines medications for now as his symptoms are mild PT for BIG program for Parkinsons Doroteo scan results reviewed Coding Level of Care Code Est Pt Level 4 (60301) Diagnoses Parkinson's disease G20
[2023-06-27 09:11] VITALS: BP 118/76; PULSE 88; RESP 17; O2SAT 98; BMI 25.1
== END 2023-06-27 09:38 | disposition home or self-care (01) ==
PROVIDERS: PCP Nurse Practitioner Family; Visit Provider Psychiatry & Neurology Neurology
DX: G20.A1 Parkinson's disease without dyskinesia, without mention of fluctuations (principal)
CPT/HCPCS: 99214

== ENCOUNTER → 2023-06-27 09:03 | Outpatient (BNVA) | payer MEDICARE, OTHER, SELFPAY | PROVIDERS: PCP Nurse Practitioner Family; Visit Provider Psychiatry & Neurology Neurology | DX: G20.A1 Parkinson's disease without dyskinesia, without mention of fluctuations (principal) | CPT/HCPCS: 99212 ==

== ENCOUNTER 2023-07-27 10:01 | Outpatient (AMB) | payer MEDICARE, OTHER, SELFPAY ==
--- NOTE | 2023-07-27 10:08 | A.OFFPC_ITS ---
Vital Signs 07/27/23 10:11 Height 5 ft 10 in Weight 174 lb 4 oz BMI 25.0 BP 130/78 Blood Pressure Location Lt brachial Position Sitting Pulse 52 Pulse Source Pulse Oximeter Pulse Oximetry (%) 100 Oxygen Delivery Method Room Air Intake Visit Reasons: 6 month follow up Intake Note: Pt is here to follow up for his lipids Allergies No Known Allergies Allergy (Verified 07/27/23 10:13) Tobacco use date assessed: 07/27/23 Fall risk assessment: No Falls in past year Last assessed Fall Risk: 07/27/23 Dental Screening Dental Screen Date: 07/27/23 Did you have a dental visit in the last 12 months?: Yes Did you have a dental problem in the last 6 months where you did not have access to dental care?: No Was dental information given to patient?: Patient has dentist HPI 6 month follow up HPI Details Dyslipidemia: On atorvastatin 20mg. Last cholesterol panel was not bad. Will repeat labs. Denies chest pain, shortness of breath, headache, dizziness, and blurred vision. Pt is following up with neurology, hematology, urology, and nephrology. Informed pt that he can obtain his pneumonia vaccine from his pharmacy. COUNTS INCLUDE 234 BEDS AT [facility] Medical History Parkinsons Rash Hereditary hemochromatosis OAB (overactive bladder) BPH (benign prostatic hyperplasia) High cholesterol Surgical History No pertinent past surgical history Family History Father Stomach cancer Paternal Aunt Stomach cancer Paternal Uncle Stomach cancer Mother HTN (hypertension) Heart disease Sister No problems noted. Son No problems noted. Son No problems noted. Social History Household Members: Spouse Housing: House Are you a primary care advocate to a significant other at home: No Do you presently have visiting nurse or other home services: No Alcohol intake: current Alcohol intake frequency: a few times a month Alcohol type: beer Patient Tobacco Use Status: Never used Tobacco e-Cigarette/Vaping Use: Never Used service: No Current occupational status: retired Cognitive needs: No Hearing needs: No Vision needs: Yes Questionnaire Thrive Questionnaire Date Thrive assessed: 11/09/21 AUDIT C Alcohol Use Questionnaire (AUDIT-C) 1. How often do you have a drink containing alcohol?: 2-4 times a month 2. How many drinks containing alcohol do you have on a typical day when you are drinking?: 1 or 2 3. How often do you have six or more drinks on one occasion?: Never Total Score: 2 LEANN-7 AMB Questionnaire LEANN-7 Date LEANN - 7 assessed: 07/27/23 Feeling nervous, anxious, or on edge: 0 = Not at all Not being able to stop or control worryin = Not at all Worrying too much about different things: 0 = Not at all Trouble relaxin = Not at all Being so restless that it is hard to sit still: 0 = Not at all Becoming easily annoyed or irritable: 0 = Not at all Feeling afraid as if something awful might happen: 0 = Not at all Total LEANN-7 score (0-4 normal; 5-9 mild; 10-14 moderate; 15-21 severe): 0 Source: Developed by Drs. Gio Nowak, Olivia Sanchez, Kervin Meyers and colleagues, with an educational gerardo from [employer]. Review of Systems Const Reports as per HPI Physical exam (Primary Care) Vital Signs: Last Vital Signs Pulse 52 07/27/23 10:11 BP 130/78 07/27/23 10:11 Pulse Ox 100 07/27/23 10:11 Oxygen Delivery Method Room Air 07/27/23 10:11 BMI result Body Mass Index 25.0 Tobacco/Smoking Status: Tobacco use Status Tobacco use date assessed 07/27/23 07/27/23 10:17 Patient Tobacco Use Status Never used Tobacco 07/27/23 10:09 e-Cigarette/Vaping Use Never Used 07/27/23 10:09 Thrive Assessment: Date of Thrive Assessment Date Thrive assessed 11/09/21 07/27/23 10:09 Const General: cooperative Orientation/consciousness: patient oriented x3 Resp Effort & Inspection: normal respiratory effort Auscultation: clear to auscultation bilaterally Cardio Rate: regular rate Rhythm: regular rhythm Heart sounds: S1 normal heart sound present and S2 normal heart sound present Neuro Other: left hand tremor General: patient oriented x3 Extrem Right lower extremity: no edema Left lower extremity: no edema Psych Appearance: grossly normal Mental Status: mental status grossly normal Speech and movement: Normal speech and movement present Affect: normal affect Attitude: cooperative Thought process: Normal thought process present Thought content: Normal thought content present Insight: Good insight present (Psych) Judgement: Good judgement present (Psych) Assessment and Plan Assessment & Plan (1) Dyslipidemia: Code(s): E78.5 - Hyperlipidemia, unspecified Plan: Labs ordered (2) Vitamin D deficiency: Code(s): E55.9 - Vitamin D deficiency, unspecified Plan: Labs ordered Plan The patient agreed to the use of a medical officer psychiatry for this encounter. Scribed for CLEOPATRA Downing by Clemencia Bradley medical officer psychiatry, on 07/27/2023 at 10:25 EST. Orders: Orders Complete Blood Count Auto Diff Today E78.5 - Hyperlipidemia, unspecified TSH reflex Free T4 Today E78.5 - Hyperlipidemia, unspecified Comprehensive [place]. Panel Fast Today E78.5 - Hyperlipidemia, unspecified UA CC w/rflx Micro + Cult Today E78.5 - Hyperlipidemia, unspecified Lipid Panel Today E78.5 - Hyperlipidemia, unspecified Vitamin D 25-OH Total Today E55.9 - Vitamin D deficiency, unspecified Coding Level of Care Code Est Pt Level 3 (45426) Diagnoses Dyslipidemia E78.5 Vitamin D deficiency E55.9
[2023-07-27 10:11] VITALS: BP 130/78; PULSE 52; O2SAT 100; BMI 25.0
== END 2023-07-27 13:17 | disposition home or self-care (01) ==
PROVIDERS: PCP Nurse Practitioner Family; Visit Provider Nurse Practitioner Family
DX: E78.5 Hyperlipidemia, unspecified (principal); E55.9 Vitamin D deficiency, unspecified
CPT/HCPCS: 99213

== ENCOUNTER 2023-12-29 09:01 | Outpatient (REF) | payer MEDICARE, OTHER, SELFPAY ==
[2023-12-29 11:37] LABS: Ferritin 357 ng/mL (20-250)
== END 2023-12-29 09:02 | disposition home or self-care (01) ==
LOC: HO.BBR 09:01
PROVIDERS: PCP Nurse Practitioner Family; Visit Provider Internal Medicine
DX: E83.110 Hereditary hemochromatosis (principal)
CPT/HCPCS: 36415; 82728

== ENCOUNTER 2024-01-15 06:37 | Outpatient (REF) | payer MEDICARE, OTHER, SELFPAY ==
[2024-01-15 06:54] LABS: MANUAL DIFF FLAG NO
[2024-01-15 08:01] LABS: Basophils Percent Auto 0.5 % (0-2); Eosinophils Absolute Auto 0.2 X10*3/uL (0.0-0.4); Eosinophils Percent Auto 3.5 % (0-4); Hematocrit 43.4 % (42.0-52.0); Hemoglobin 15.2 g/dl (14.0-18.0); Imm Gran Abs Auto 0.01 X10*3/uL (0.00-0.03); Imm Gran Pct Auto 0.2 % (0.0-0.4); Lymphocytes Absolute Auto 1.9 X10*3/uL (1.2-4.9); Lymphocytes Percent Auto 32.6 % (20-40); Mean Corpuscular Hemoglobin 30.5 pg (27.0-33.0); Mean Corpuscular Volume 87.1 fL (80.0-98.0); Mean Platelet Volume 9.6 fL (9.4-12.4); Monocytes Absolute Auto 0.5 X10*3/uL (0.1-1.2); Monocytes Percent Auto 8.1 % (2-11); Neutrophils Absolute Auto 3.1 x10*3/uL (2.0-8.3); Neutrophils Percent Auto 55.1 % (45-73); Platelet Count 187 X10*3/uL (160-400); Red Blood Count 4.98 X10*6/uL (4.60-5.80); Red Cell Distribution Width 12.9 % (11.0-16.0); White Blood Count 5.7 X10*3/uL (4.8-10.8)
[2024-01-15 08:31] LABS: Appearance Urine Clear; Color Urine Yellow; Glucose Urine UA Negative (Negative); Leukocyte Esterase Urine Negative (Negative); Nitrite Urine Negative (Negative); PH 6.5 (5.0-9.0); Specific Gravity - Urine 1.015 (1.005-1.025); Urine Blood Negative (Negative); Urine Ketones Negative (Negative); Urine Protein Negative (Neg-Trace)
[2024-01-15 08:31] LABS: Alanine Aminotransferase 24 U/L (0-40); Albumin Level 4.3 g/dL (3.5-5.0); Alkaline Phosphatase 47 U/L (39-117); Anion Gap 14 (12-20); Aspartate Amino Transferase 27 U/L (5-37); Bilirubin Total 0.8 mg/dL (0.0-1.0); Blood Urea Nitrogen 19 mg/dL (9-16); Calcium 9.8 mg/dL (8.4-10.2); Carbon Dioxide 24 mmol/L (22-29); Chloride 108 mmol/L (96-108); Cholesterol 165 mg/dL (<200); Estimated Glomerular Filt Rate 53; Glucose Fasting 104 mg/dL (60-99); HDL Cholesterol 46 mg/dL (>40); LDL Cholesterol Calculated 95 mg/dL (<100); Potassium 3.8 mmol/L (3.3-5.1); Sodium 142 mmol/L (135-145); Total Protein 6.9 g/dL (6.5-8.0); Triglycerides 122 mg/dL (<150)
[2024-01-15 08:47] LABS: TSH reflex Free T4 2.02 uIU/mL (0.32-4.0); Vitamin D 25-OH Total 51.1 ng/mL (>30)
== END 2024-01-15 06:38 | disposition home or self-care (01) ==
LOC: HO.LAB 06:37
PROVIDERS: PCP Nurse Practitioner Family; Visit Provider Nurse Practitioner Family
DX: E78.5 Hyperlipidemia, unspecified (principal); E55.9 Vitamin D deficiency, unspecified
CPT/HCPCS: 36415; 80053; 80061; 81003; 82306; 84443; 85025

== ENCOUNTER 2024-02-14 08:55 | Outpatient (AMB) | payer MEDICARE, OTHER, SELFPAY ==
--- NOTE | 2024-02-14 08:57 | A.OFFPC_ITS ---
Vital Signs 02/14/24 08:58 Height 5 ft 10 in Weight 170 lb BMI 24.4 BP 120/70 Blood Pressure Location Rt brachial Position Sitting Pulse 66 Pulse Source Pulse Oximeter Pulse Oximetry (%) 97 Oxygen Delivery Method Room Air Intake Visit Reasons: Annual PE Intake Note: pt is here for annual exam Director Of Exhibits Required: No Accompanied by: Self / Same As Patient Allergies No Known Allergies Allergy (Verified 02/14/24 09:32) Medication List - Last Reconciled 02/14/24 by CLEOPATRA Melton atorvastatin 20 mg PO DAILY 90 days cholecalciferol (vitamin D3) 25 mcg PO DAILY finasteride 5 mg PO DAILY omeprazole 20 mg PO DAILY tadalafil 5 mg PO DAILY tamsulosin 0.4 mg PO BID vibegron (Gemtesa) 75 mg PO DAILY Tobacco use date assessed: 02/14/24 Fall risk assessment: No Falls in past year Last assessed Fall Risk: 02/14/24 Dental Screening Dental Screen Date: 07/27/23 HPI Annual PE 2 HPI Details Pt is here for a PE. Will order labs. Pt follows up with nephrology, neurology, hematology/oncology, and urology (who orders his PSA). Due for colon screen, pt waited on this because he was taking care of his at the time (was due in 2021). Will refer to GI. [facility] Medical History Parkinsons Rash Hereditary hemochromatosis OAB (overactive bladder) BPH (benign prostatic hyperplasia) High cholesterol Surgical History No pertinent past surgical history Family History Father Stomach cancer Paternal Aunt Stomach cancer Paternal Uncle Stomach cancer Mother HTN (hypertension) Heart disease Sister No problems noted. Son No problems noted. Son No problems noted. Social History Household Members: Spouse Housing: House Are you a primary skin care technician to a significant other at home: No Do you presently have visiting nurse or other home services: No Alcohol intake: current Alcohol intake frequency: a few times a month Alcohol type: beer Patient Tobacco Use Status: Never used Tobacco e-Cigarette/Vaping Use: Never Used service: No Current occupational status: retired Cognitive needs: No Hearing needs: No Vision needs: Yes Questionnaire PHQ-9 Over the last 2 weeks, how often have you been bothered by any of the following problems? 1. Little interest or pleasure in doing things: not at all 2. Feeling down, depressed, or hopeless: not at all 3. Trouble falling or staying asleep, or sleeping too much: not at all 4. Feeling tired or having little energy: several days 5. Poor appetite or overeating: not at all 6. Feeling bad about yourself - or that you are a failure or have let yourself or your family down: not at all 7. Trouble concentrating on things, such as reading the newspaper or watching television: not at all 8. Moving or speaking so slowly that other people could have noticed. Or the opposite - being so fidgety or restless that you have been moving around a lot more than usual: not at all 9. Thoughts that you would be better off or of hurting yourself in some way: not at all Total score: 1 Depression Screening Interpretation: Negative Depression Screening Done: Yes 93276 - PHQ-9 Billing: Yes Source: Developed by Drs. Gio Nowak, Olivia Sanchez, Kervin Meyers and colleagues, with an educational gerardo from [employer] Thrive Questionnaire Date Thrive assessed: 02/13/24 I am a: Patient What is your living situation today?: I choose not to answer this question Within the past 12 months, did the food you bought not last and you didn't have the money to get more?: Never true Within the past 12 months, did you worry whether your food would run out before you got money to buy more?: Sometimes True Do you have trouble paying for medicines?: I choose not to answer this question Do you have trouble getting transportation to medical appointments?: No Do you have trouble paying your heating and electricity bill?: I choose not to answer this question Do you have trouble taking care of your child, family member or friend?: No Do you have trouble with day-to-day activities such as bathing, preparing meals, shopping, managing finances, etc.?: No Are you currently unemployed and looking for a job?: I choose not to answer this question Are you interested in more education?: No Please select the resources that you would like help with: None Currently or been in a relationship where the following occur: I choose not to answer THRIVE Score: 1 AUDIT C Alcohol Use Questionnaire (AUDIT-C) 1. How often do you have a drink containing alcohol?: Monthly or less 2. How many drinks containing alcohol do you have on a typical day when you are drinking?: 1 or 2 3. How often do you have six or more drinks on one occasion?: Never Total Score: 1 Score Reviewed/Action Taken: Yes LEANN-7 AMB Questionnaire LEANN-7 Date LEANN - 7 assessed: 02/14/24 Feeling nervous, anxious, or on edge: 0 = Not at all Not being able to stop or control worryin = Not at all Worrying too much about different things: 0 = Not at all Trouble relaxin = Not at all Being so restless that it is hard to sit still: 0 = Not at all Becoming easily annoyed or irritable: 0 = Not at all Feeling afraid as if something awful might happen: 0 = Not at all Total LEANN-7 score (0-4 normal; 5-9 mild; 10-14 moderate; 15-21 severe): 0 Source: Developed by Drs. Gio Nowak, Olivia Sanchez, Kervin Meyers and colleagues, with an educational gerardo from [employer] LEANN-7 Assessment Billing LEANN-7 Assessment Tool: LEANN-7 Assessment 01215 Review of Systems Const Denies chills and Denies fever(s) Eyes Denies blurry vision ENT Denies vertigo, Denies dizziness and Denies sore throat Card Denies chest pain at rest, Denies chest pain with activity, Denies diaphoresis, Denies dyspnea and Denies dyspnea on exertion Resp Denies cough, Denies dyspnea, Denies dyspnea on exertion and Denies wheezing GI Denies abdominal pain, Denies melena, Denies hematochezia, Denies constipation, Denies diarrhea and Denies loose stools Denies hematuria Musc Denies numbness and Denies tingling Skin/Breast Denies lesions Neuro Denies vertigo, Denies dizziness, Denies numbness and Denies tingling Psych Denies anxiety, Denies depression, Denies homicidal ideation, Denies suicidal ideation and Denies other (substance abuse) Aller/Immun Denies wheezing Physical exam (Primary Care) Vital Signs: Last Vital Signs Pulse 66 02/14/24 08:58 BP 120/70 02/14/24 08:58 Pulse Ox 97 02/14/24 08:58 Oxygen Delivery Method Room Air 02/14/24 08:58 BMI result Body Mass Index 24.4 Tobacco/Smoking Status: Tobacco use Status Tobacco use date assessed 02/14/24 02/14/24 09:00 Patient Tobacco Use Status Never used Tobacco 02/14/24 09:00 e-Cigarette/Vaping Use Never Used 02/14/24 09:00 PHQ-9: PHQ-9 Score PHQ-9: Total score 1 02/14/24 09:10 Depression Screening Interpretation: Negative Thrive Assessment: Date of Thrive Assessment Date Thrive assessed 02/13/24 02/14/24 09:00 Currently or been in a relationship where the following occur: I choose not to answer Const General: cooperative Nutritional Appearance: well nourished Orientation/consciousness: patient oriented x3 HENMT Other: cerumen noted bilat, after ear lavage TMs easily seen Head: Yes normal to inspection, Yes normocephalic and Yes atraumatic Eyes General: appearance normal, both eyes and all related structures Alignment and Position: alignment normal and position normal Neck Neck: Yes normal visual inspection and Yes no lymphadenopathy Thyroid: Thyroid normal Resp Effort & Inspection: normal respiratory effort Auscultation: clear to auscultation bilaterally Cardio Rate: regular rate Rhythm: regular rhythm Heart sounds: S1 normal heart sound present, S2 normal heart sound present and no murmurs GI Palpation (GI): Soft to palpation and nontender Auscultation: normal bowel sounds Other: small left inguinal hernia Male General Exam: Yes normal external exam Penis: normal penis Scrotum: scrotum normal and testes descended bilaterally Testes: no testicular mass Skin Rashes: no rashes Neuro Other: RUE tremor General: patient oriented x3, moves all extremities, no focal motor deficits and deep tendon reflexes 2+ bilaterally Romberg Test: Negative Psych Appearance: grossly normal Mental Status: mental status grossly normal Speech and movement: Normal speech and movement present Affect: normal affect Attitude: cooperative Thought process: Normal thought process present Thought content: Normal thought content present Insight: Good insight present (Psych) Judgement: Good judgement present (Psych) Office Procedures Cerumen Removal From which ear canal was the cerumen removed: bilateral Removal: irrigation Notes: patient tolerated procedure well, no complications and ear canal clear [id number] Irrigation/Lavage Assessment and Plan Assessment & Plan (1) Encounter for routine adult physical exam with abnormal findings: Code(s): Z00.01 - Encounter for general adult medical examination with abnormal findings Plan: Labs ordered (2) Cerumen impaction: Code(s): H61.20 - Impacted cerumen, unspecified ear Plan: Ears flushed in office (3) Screening for colon cancer: Code(s): Z12.11 - Encounter for screening for malignant neoplasm of colon Plan: Referred to GI Plan The patient agreed to the use of a medical charge entry specialist for this encounter. Scribed for CLEOPATRA Downing by Clemencia Bradley medical charge entry specialist, on 02/14/2024 at 09:15 EST. Orders: Orders TSH reflex Free T4 Today Z00.01 - Encounter for general adult medical examination with abnormal findings Complete Blood Count Auto Diff Today Z00.01 - Encounter for general adult medical examination with abnormal findings Comprehensive Mcdonald. Panel Fast Today Z00.01 - Encounter for general adult medical examination with abnormal findings UA CC w/rflx Micro + Cult Today Z00.01 - Encounter for general adult medical examination with abnormal findings Lipid Panel Today Z00.01 - Encounter for general adult medical examination with abnormal findings Referrals Gastroenterology Referral Z12.11 - Encounter for screening for malignant neoplasm of colon Coding Level of Care Code Est Pt Prev Care >65y(50347) Diagnoses Encounter for routine adult physical exam with abnormal findings Z00.01 Cerumen impaction H61.20 Screening for colon cancer Z12.11 CPT Codes Office Procedure - CPT: 85654-Wop Irrigation/Lavage ([id number]) Additional Codes LEANN-7 Assessment Billing - LEANN-7 Assessment Tool: LEANN-7 Assessment [id number] ([id number])
[2024-02-14 08:58] VITALS: BP 120/70; PULSE 66; O2SAT 97; BMI 24.4
== END 2024-02-14 09:43 | disposition home or self-care (01) ==
PROVIDERS: PCP Nurse Practitioner Family; Visit Provider Nurse Practitioner Family
DX: Z23 Encounter for immunization (principal)
CPT/HCPCS: 69209; 90471; 90677; 99397

== ENCOUNTER 2024-03-04 13:49 | Outpatient (AMB) | payer MEDICARE, OTHER, SELFPAY ==
--- NOTE | 2024-03-04 13:52 | A.OFFVIS_ITS ---
Vital Signs 03/04/24 13:53 Height 5 ft 10 in Weight 170 lb BMI 24.4 BP 126/70 Blood Pressure Location Rt brachial Position Sitting Respiration 16 Pulse 101 H Pulse Source Pulse Oximeter Pulse Oximetry (%) 98 Oxygen Delivery Method Room Air Intake Visit Reasons: 6 mo f/u Tremors Intake Note: Pt presents to the office for an 8 month follow up for Parkinson's. [employer] Required: No Allergies No Known Allergies Allergy (Verified 03/04/24 13:53) HPI Comments Details: 68y/o right handed male comes for follow up regarding parkinsons.His DOROTEO scan was negative . He denies any worsening . PT - he did BIG program He starting noticing in his right hand about 2 1/2 years ago. The tremors are mostly at rest and has worsened since then . he was seen by about 2 years and he was diagnosed with parkinsons. Cognition- normal Mood- normal Sleep- trouble going back to sleep when he wakes up at 5 AM . No vivid dreams or acting out dreams. He is motivated. Speech- softer No drooling Handwriting- no change as per patient No stiffness No difficulty with utensils, dressing, showering No difficulty changing positions in bed. Gait normal No falls No dizziness No hallucinations Normal bowel movements. No exposure to pesticides, well water, chemicals No head injury [facility] Medical History (Updated 03/04/24 @ 14:16 by Leonila Worley MD) Parkinson's disease without dyskinesia Parkinsons Rash Hereditary hemochromatosis OAB (overactive bladder) BPH (benign prostatic hyperplasia) High cholesterol Surgical History No pertinent past surgical history Family History Father Stomach cancer Paternal Aunt Stomach cancer Paternal Uncle Stomach cancer Mother HTN (hypertension) Heart disease Sister No problems noted. Son No problems noted. Son No problems noted. Social History Household Members: Spouse Housing: House Are you a primary health care assistant to a significant other at home: No Do you presently have visiting nurse or other home services: No Alcohol intake: current Alcohol intake frequency: a few times a month Alcohol type: beer Patient Tobacco Use Status: Never used Tobacco e-Cigarette/Vaping Use: Never Used service: No Current occupational status: retired Cognitive needs: No Hearing needs: No Vision needs: Yes Physical Exam Vital Signs: Last Vital Signs Pulse 101 H 03/04/24 13:53 Resp 16 03/04/24 13:53 BP 126/70 03/04/24 13:53 Pulse Ox 98 03/04/24 13:53 Oxygen Delivery Method Room Air 03/04/24 13:53 BMI result Body Mass Index 24.4 Const General: cooperative, healthy appearing, comfortable and no acute distress Nutritional Appearance: average body habitus Orientation/consciousness: patient oriented x3 Limitations: no limitations Eyes Pupils: Equal, round and reactive pupils present Neuro Other: very mild decreased blink facial expression, stoop, hypophonia right UE intermittent rest tremors moderate amplitude gait - decreased arm swing right UE Cog wheel rigidty 1 = right UE FFM and foot taps normal General: patient oriented x3, moves all extremities and no focal motor deficits Cranial nerves: Yes Facial sensation intact/muscles of mastication intact, Yes Equal, round and reactive pupils present, Yes Nystagmus not present, Yes Normal facial strength present and Yes Midline tongue present Cognition (Neuro): normal cognition Gait exam (Neuro): Other gait observations present (normal stride, mild stoop, decreased right arm swing) Motor exam (neuro): 5/5 motor strength present throughout Coordination: [id number] test normal Assessment & Plan Assessment & Plan (1) Parkinson's disease without dyskinesia: Code(s): G20.A1 - Parkinson's disease without dyskinesia, without mention of fluctuations Category: Medical Qualifiers: Fluctuating manifestations: without fluctuating manifestations Qualified Code(s): G20.A1 - Parkinson's disease without dyskinesia, without mention of fluctuations Plan Discussed various management options He declines medications for now as his symptoms are mild Continue exercises. Doroteo scan results reviewed Coding Level of Care Code Est Pt Level 4 (93512) Diagnoses Parkinson's disease without dyskinesia or fluctuating manifestations G20.A1 Fluctuating manifestations: without fluctuating manifestations
[2024-03-04 13:53] VITALS: BP 126/70; PULSE 101; RESP 16; O2SAT 98; BMI 24.4
== END 2024-03-04 14:22 | disposition home or self-care (01) ==
PROVIDERS: PCP Nurse Practitioner Family; Visit Provider Psychiatry & Neurology Neurology
DX: G20.A1 Parkinson's disease without dyskinesia, without mention of fluctuations (principal)
CPT/HCPCS: 99214

== ENCOUNTER → 2024-03-04 13:49 | Outpatient (BNVA) | payer MEDICARE, OTHER, SELFPAY | PROVIDERS: PCP Nurse Practitioner Family; Visit Provider Psychiatry & Neurology Neurology | DX: G20.A1 Parkinson's disease without dyskinesia, without mention of fluctuations (principal) | CPT/HCPCS: 99212 ==

== ENCOUNTER 2024-03-11 09:11 | Outpatient (REF) | payer MEDICARE, OTHER, SELFPAY ==
[2024-03-11 12:04] LABS: Ferritin 264 ng/mL (20-250)
== END 2024-03-11 09:12 | disposition home or self-care (01) ==
LOC: HO.BBR 09:11
PROVIDERS: PCP Nurse Practitioner Family; Visit Provider Internal Medicine
DX: E83.110 Hereditary hemochromatosis (principal)
CPT/HCPCS: 36415; 82728

== ENCOUNTER 2024-05-09 15:54 | Outpatient (REF) | payer MEDICARE, OTHER, SELFPAY ==
[2024-05-09 17:11] LABS: Appearance Urine Clear; Color Urine Yellow; Glucose Urine UA Negative (Negative); Leukocyte Esterase Urine Negative (Negative); Nitrite Urine Negative (Negative); Specific Gravity - Urine 1.015 (1.005-1.025); UMIC TRIGGER UA YES; Urine Blood Trace (Negative); Urine Ketones Negative (Negative); Urine Protein Negative (Neg-Trace)
[2024-05-09 17:30] LABS: Bacteria Urine None Seen (None Seen); Hyaline Casts Urine 0-2 /LPF (0-2); RBC Urine 0-2 /HPF (0-2); Squamous Epithelial Cell Urine 0-2 /HPF (0-2); WBC Urine 0-5 /HPF (0-5)
[2024-05-09 18:08] LABS: Anion Gap 12 (12-20); Blood Urea Nitrogen 20 mg/dL (9-16); Calcium 9.5 mg/dL (8.4-10.2); Carbon Dioxide 28 mmol/L (22-29); Chloride 105 mmol/L (96-108); Estimated Glomerular Filt Rate 49; Potassium 3.9 mmol/L (3.3-5.1); Sodium 141 mmol/L (135-145)
== END 2024-05-09 15:55 | disposition home or self-care (01) ==
LOC: HO.LAB 15:54
PROVIDERS: PCP Nurse Practitioner Family; Visit Provider Internal Medicine Hypertension Specialist
DX: R31.29 Other microscopic hematuria (principal); N18.9 Chronic kidney disease, unspecified
CPT/HCPCS: 36415; 80051; 81001; 82310; 82565; 84520

== ENCOUNTER 2024-05-13 10:39 | Outpatient (AMB) | payer MEDICARE, OTHER, SELFPAY ==
[2024-05-13 10:50] VITALS: BP 110/64; PULSE 73; O2SAT 98; BMI 24.5
--- NOTE | 2024-05-13 10:50 | HO.NEPHOV ---
Vital Signs 05/13/24 10:50 Height 5 ft 10 in Weight 171 lb BMI 24.5 BP 110/64 Blood Pressure Location Lt brachial Position Sitting Pulse 73 Pulse Source Pulse Oximeter Pulse Oximetry (%) 98 Oxygen Delivery Method Room Air Intake Visit Reasons: CKD/ Conf Learning And Development Consultant Required: No Accompanied by: Self / Same As Patient Allergies No Known Allergies Allergy (Verified 05/13/24 10:54) Medication List - Last Reconciled 05/13/24 by Onel Worley MD atorvastatin 20 mg PO DAILY 90 days cholecalciferol (vitamin D3) 25 mcg PO DAILY finasteride 5 mg PO DAILY omeprazole 20 mg PO DAILY tadalafil 5 mg PO DAILY tamsulosin 0.4 mg PO BID vibegron (Gemtesa) 75 mg PO DAILY HPI Comments Details: Middle-aged man with a history of Parkinson's disease and transient microscopic hematuria. He is here for follow-up. He continues to have bladder dysfunction. On GEmtessa He has an implant and has follow-up with Urology as well. REcent USG was repoertedly unremarkable He has had no gross hematuria. No increased frequency. [facility] Medical History (Updated 03/04/24 @ 14:16 by Leonila Worley MD) Parkinson's disease without dyskinesia Parkinsons Rash Hereditary hemochromatosis OAB (overactive bladder) BPH (benign prostatic hyperplasia) High cholesterol Surgical History No pertinent past surgical history Family History Father Stomach cancer Paternal Aunt Stomach cancer Paternal Uncle Stomach cancer Mother HTN (hypertension) Heart disease Sister No problems noted. Son No problems noted. Son No problems noted. Social History Household Members: Spouse Housing: House Are you a primary point of care technician to a significant other at home: No Do you presently have visiting nurse or other home services: No Alcohol intake: current Alcohol intake frequency: a few times a month Alcohol type: beer Patient Tobacco Use Status: Never used Tobacco e-Cigarette/Vaping Use: Never Used service: No Current occupational status: retired Cognitive needs: No Hearing needs: No Vision needs: Yes Physical Exam Vital Signs: Last Vital Signs Pulse 73 05/13/24 10:50 BP 110/64 05/13/24 10:50 Pulse Ox 98 05/13/24 10:50 Oxygen Delivery Method Room Air 05/13/24 10:50 BMI result Body Mass Index 24.5 Results Reviewed Results Reviewed: Nephrology Results: Hgb 15.2 g/dl (14.0-18.0) 01/15/24 WBC 5.7 X10*3/uL (4.8-10.8) 01/15/24 Plt Count 187 X10*3/uL (160-400) 01/15/24 Sodium 141 mmol/L (135-145) 05/09/24 Potassium 3.9 mmol/L (3.3-5.1) 05/09/24 Chloride 105 mmol/L (96-108) 05/09/24 Carbon Dioxide 28 mmol/L (22-29) 05/09/24 BUN 20 mg/dL (9-16) H 05/09/24 Creatinine 1.44 mg/dL (0.5-1.4) H 05/09/24 Calcium 9.5 mg/dL (8.4-10.2) 05/09/24 Urine Protein Negative mg/dL (Neg-Trace) 05/09/24 Assessment & Plan Assessment & Plan (1) Elevated serum creatinine: Code(s): R79.89 - Other specified abnormal findings of blood chemistry Category: Medical Plan: Serum creatinine is close to baseline at 1.2 40 1.4. 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 Increase him to stay on low-sodium diet. Increase p.o. fluid intake. Avoid nephrotoxic agents including NSAIDs. No significant hematuria by recent dipstick. No significant proteinuria. (2) CKD (chronic kidney disease): Code(s): N18.9 - Chronic kidney disease, unspecified Category: Medical Plan as above Orders: Orders Basic Metabolic Panel 1 Year N18.9 - Chronic kidney disease, unspecified Total Protein Urine Random 1 Year N18.9 - Chronic kidney disease, unspecified UA and rflx microscopic 1 Year N18.9 - Chronic kidney disease, unspecified Creatinine Urine 1 Year N18.9 - Chronic kidney disease, unspecified Coding Level of Care Code Est Pt Level 4 (85919) Diagnoses Elevated serum creatinine R79.89 CKD (chronic kidney disease) N18.9
== END 2024-05-13 11:05 | disposition home or self-care (01) ==
PROVIDERS: PCP Nurse Practitioner Family; Visit Provider Internal Medicine Hypertension Specialist
DX: R79.89 Other specified abnormal findings of blood chemistry (principal); N18.2 Chronic kidney disease, stage 2 (mild)
CPT/HCPCS: 99214

== ENCOUNTER → 2024-05-13 10:39 | Outpatient (BNVA) | payer MEDICARE, OTHER, SELFPAY | PROVIDERS: PCP Nurse Practitioner Family; Visit Provider Internal Medicine Hypertension Specialist | DX: N32.81 Overactive bladder (principal); R79.89 Other specified abnormal findings of blood chemistry; N18.9 Chronic kidney disease, unspecified | CPT/HCPCS: 99212 ==

== ENCOUNTER 2024-05-14 10:01 | Outpatient (REF) | payer MEDICARE, OTHER, SELFPAY ==
[2024-05-14 11:51] LABS: Ferritin 201 ng/mL (20-250)
== END 2024-05-14 10:02 | disposition home or self-care (01) ==
LOC: HO.BBR 10:01
PROVIDERS: PCP Nurse Practitioner Family; Visit Provider Internal Medicine
DX: E83.110 Hereditary hemochromatosis (principal)
CPT/HCPCS: 36415; 82728

== ENCOUNTER 2024-06-24 08:03 | Outpatient (AMB) | payer MEDICARE, OTHER, SELFPAY ==
--- NOTE | 2024-06-24 08:07 | MHC.OFFWIV ---
Intake Vital Signs 06/24/24 08:08 Height 5 ft 10 in Weight 177 lb BMI 25.4 BP 122/70 Blood Pressure Location Rt brachial Position Sitting Pulse 71 Pulse Source Pulse Oximeter Temp 98.4 F Temp Source Oral Pulse Oximetry (%) 98 Oxygen Delivery Method Room Air Intake Visit Reasons: EP throat, sinus, ears, SOB Intake Note: Patient here for upper resp issues, bilat ear pain,sinus congestion, chest congestion and SOB which has been present for about 10 days. Patient Tobacco Use Status: Never used Tobacco Allergies No Known Allergies Allergy (Verified 05/13/24 10:54) Do you need a note to return to daycare/school/sports/work: No HPI EP throat, sinus, ears, SOB HPI Details This note is constructed using voice recognition software. While every effort has been made to ensure accuracy, housing assistant property manager errors may have been included. The patient is a 69 year old male who presents to the clinic today with sinus congestion, cough, ear pressure for the past 10 days. He denies fever, chills, shortness of breath, body aches. He reports that his mother was recently sick with RSV, and he got sick about 4 5 days after last exposure to her. He initially had a sore throat, which has resolved. [facility] Medical History (Updated 03/04/24 @ 14:16 by Leonila Worley MD) Parkinson's disease without dyskinesia Parkinsons Rash Hereditary hemochromatosis OAB (overactive bladder) BPH (benign prostatic hyperplasia) High cholesterol Surgical History No pertinent past surgical history Family History Father Stomach cancer Paternal Aunt Stomach cancer Paternal Uncle Stomach cancer Mother HTN (hypertension) Heart disease Sister No problems noted. Son No problems noted. Son No problems noted. Social History Household Members: Spouse Housing: House Are you a primary health and social care teacher to a significant other at home: No Do you presently have visiting nurse or other home services: No Alcohol intake: current Alcohol intake frequency: a few times a month Alcohol type: beer Patient Tobacco Use Status: Never used Tobacco e-Cigarette/Vaping Use: Never Used service: No Current occupational status: retired Cognitive needs: No Hearing needs: No Vision needs: Yes Review of Systems Const All systems reviewed & are unremarkable except as noted in HPI and below Physical Exam Vital Signs: Last Vital Signs Temp 98.4 F 06/24/24 08:08 Pulse 71 06/24/24 08:08 BP 122/70 06/24/24 08:08 Pulse Ox 98 06/24/24 08:08 Oxygen Delivery Method Room Air 06/24/24 08:08 BMI result Body Mass Index 25.4 Const General: cooperative, healthy appearing, comfortable and no acute distress Orientation/consciousness: patient oriented x3 Limitations: no limitations HEENT Head: Yes normal to inspection Ears: hearing grossly normal bilaterally, external ears normal and TM's normal bilaterally General nose exam: Normal external nose present, Normal nares present, Abnormal mucous membranes and turbinates present erythematous and Nasal discharge present purulent Face and sinus: Yes normal facial exam and Yes sinus tenderness (Maxillary) Mouth: Normal oral and palatal mucosa present and moist mucous membranes Throat: Yes posterior oropharynx normal, Yes tonsils normal and Yes uvula midline Eyes General: appearance normal, both eyes and all related structures Neck Neck: Yes normal visual inspection Resp Effort & Inspection: normal respiratory effort, able to speak in complete sentences, Actively coughing, no respiratory distress, not tachypneic, no tripod positioning and no use of accessory muscles Auscultation: clear to auscultation bilaterally Cardio Rate: regular rate Rhythm: regular rhythm Heart sounds: normal S1 and S2 Skin General skin exam: no rashes or lesions noted Neuro General: patient oriented x3 Extrem General: Yes normal to inspection and Yes no clubbing, cyanosis or edema Assessment & Plan Assessment & Plan (1) Sinusitis: Code(s): J32.9 - Chronic sinusitis, unspecified Qualifiers: Sinusitis location: maxillary Chronicity: acute Recurrence: non-recurrent Qualified Code(s): J01.00 - Acute maxillary sinusitis, unspecified Plan: Supportive measures encouraged and reviewed. Advised consideration of sinus rinse if needed. Antibiotic sent to requested pharmacy, advised patient to take antibiotics until completed and not to stop if feeling better, unless the patient has side effects. Advised patient to follow up with primary care provider with worsening or failure to resolve. Also Viral swab obtained to rule out Covid, Influenza, and RSV based on symptoms and recent exposure to RSV. Advised mask wearing while symptomatic and quarantine per current CDC guidelines. Reviewed at home support methods including hydration, humidification, vix vapor rub, sinus rinse, and otc treatment options. Advised follow up with worsening symptoms such as dyspnea at rest, which would require emergent evaluation. Plan See above for full details and plan. Orders: Orders SARS-CoV2/FLU/RSV Today J06.9 - Acute upper respiratory infection, unspecified Medications: New amoxicillin-pot clavulanate 875-125 mg 1 tab PO BID 7 days 14 tabs 0RF Coding Level of Care Code Est Pt Level 3 (31762) Diagnoses Acute non-recurrent maxillary sinusitis J01.00 Sinusitis location: maxillary Chronicity: acute Recurrence: non-recurrent
[2024-06-24 08:08] VITALS: BP 122/70; PULSE 71; TEMP 36.9; O2SAT 98; BMI 25.4
== END 2024-06-24 08:45 | disposition home or self-care (01) ==
PROVIDERS: PCP Nurse Practitioner Family; Visit Provider Registered Nurse
DX: J01.00 Acute maxillary sinusitis, unspecified (principal)

== ENCOUNTER 2024-06-24 08:03 | Outpatient (REF) | payer MEDICARE, OTHER, SELFPAY ==
[2024-06-24 11:23] LABS: Influenza A PCR NEGATIVE (Negative); Influenza B PCR NEGATIVE (Negative); Resp Syncy Virus RNA Qual PCR POSITIVE (Negative); SARS COV2 PCR INHOUSE POSITIVE (Negative)
== END 2024-06-24 08:04 | disposition home or self-care (01) ==
LOC: HO.LNP 08:03
PROVIDERS: PCP Nurse Practitioner Family; Visit Provider Registered Nurse
DX: J06.9 Acute upper respiratory infection, unspecified (principal); J01.00 Acute maxillary sinusitis, unspecified
CPT/HCPCS: 0241U; 99212

== ENCOUNTER 2024-07-19 10:52 | Outpatient (REF) | payer MEDICARE, OTHER, SELFPAY ==
--- OUTSIDE RECORDS SUMMARY | 2024-07-19 12:52 | XMS_ITS ---
Author Organization [facility] Address [address] [place] [address] Care Team Providers Care Domestic Housekeeper Name Role Phone ODALIS DE LA TORRE Primary Care Provider UnavailBobby Lopez Jr Unavailable ALLERGIES Allergen (clinical drug ingredient) Drug/Non Drug Allergy documented on EMR Reaction Allergy Type Onset Date Status ferrous sulfate Iron no iron due to hemochromatosis Drug Allergy Active REASON FOR VISIT Patient presents today for a screening colonoscopy MEDICATIONS Medication SIG (Take, Route, Frequency, Duration) Notes Start Date End Date Status Tadalafil 5 MG TAKE 1 TABLET BY MOUTH ONCE DAILY Oral for 90 Active Gemtesa 75 MG TAKE 1 TABLET BY MOUTH ONCE A DAY Oral for 30 [id number],Unavailab le Active Omeprazole 20 MG TAKE 1 CAPSULE BY MOUTH EVERY DAY Orally Once a day for 90 days Active Joint Support Complex Active Myrbetriq 50 MG Orally Acti ve Finasteride Active Atorvastatin Calcium 20 MG 1 tablet Orally Once a day Active Tamsulosin HCl 0.4 MG 2 capsule Orally Once a day Active MiraLax (colon prep) 17 GM/SCOOP mixed with Gatorade or Crystal Light Orally begin at 5:00 p.m. the day before the procedure for 1 day 06/13/2024 Active Vitamin D3 25 MCG (1000 UT) Orally Once a day Active SOCIAL HISTORY Tobacco Use: Social History Observation Description Date Details (start date - stop date) Never Smoker NA - NA Sex Assigned At : Social History Observation Description Sex Assigned At Unknown Tobacco Use/Smoking Question Answer Notes Patient is a nonsmoker Alcohol Screen Question Answer Notes Did you have a drink contain ing alcohol in the past year? Yes How often did you have a dri nk containing alcohol in the past year? 2 to 4 times a month (2 points) How many drinks did you have on a typical day when you were drinking in the past year? 1 or 2 drinks (0 point) How often did you have 6 or more drinks on one occasion in the past year? Never (0 point) Points 2 Interpretation Negative PROBLEMS Problem Type ICD Code Onset Dates Problem Status W/U Status Risk SNOMED Code Notes Problem GERD without esophagitis (K21.9) Active confirmed 135828379 VITAL SIGNS BMI 24.39 kg/m2 06/13/2024 Blood pressure systolic 00 mm Hg 06/13/20 24 Blood pressure diastolic 00 mm Hg 024 Height 70 in 06/13/2024 Weight 170 lbs 06/13/2024 Encounters Encounter Location Date Provider Diagnosis [facility] [address] [facility] [address] [place] [phone] 06/13/2024 Bobby Nugent Jr Colon cancer screening Z12.11 and GERD without esophagitis K21.9 ASSESSMENTS Encounter Date Diagnosis Assessment Notes Treatment Notes Treatment Clinical Notes 06/13/2024 Colon cancer screening (ICD-10 - Z12.11) 06/13/2024 GERD without esophagitis (ICD-10 - K21.9) Gastroesophageal reflux disease material was printed PLAN OF TREATMENT Medication Medication Name Sig Start Date Stop Date Notes MiraLax (colon prep) 17 GM/SCOOP mixed with Gatorade or Crystal Light Orally begin at 5:00 p.m. the day before the procedure for 1 day 06/13/2024 Treatment Notes Assessment Notes GERD without esophagitis Gastroesophagea l reflux disease material was printed Future Test Test Name Order Date COLONOSCOPY 06/13/2024 Next Appt Details Follow Up: 1 Year, Reason: Provider Name:Bobby geronimo Jr, 07/23/2024 09:10:00 AM, [address] [place] [address] , [place], [place], [phone], Progress Notes * Examination Category Sub-Category Detail Notes General Examination GENERAL APPEARANCE: in no ac alonso distress HEAD: normocephalic EYES: sclera non-icteric NECK/THYROID: no lymphadenopathy HEART: S1, S2 normal, no mu rmurs CHEST: normal shape and exp ansion LUNGS: clear to auscultatio n bilaterally ABDOMEN: soft, nontender, non distended, bowel sounds present, no organomegaly SKIN: anicteric EXTREMITIES: no clubbing, cyanosi s, or edema PSYCH: cognitive function i ntact ORAL CAVITY: mucosa moist
--- OUTSIDE RECORDS SUMMARY | 2024-07-19 12:52 | XMS_ITS | Patient Health Record ---
Author Organization [facility] Address [address] [place] [phone] Care Team Providers Care Videotape Operator Name Role Phone ODALIS DE LA TORRE Primary Care Provider UnavailBobby Lopez Jr Unavailable ALLERGIES Allergen (clinical drug ingredient) Drug/Non Drug Allergy documented on EMR Reaction Allergy Type Onset Date Status ferrous sulfate Iron no iron due to hemochromatosis Drug Allergy Active REASON FOR REFERRAL No Information MEDICATIONS Medication SIG (Take, Route, Frequency, Duration) Notes Start Date End Date Status Atorvastatin Calcium 20 MG 1 tablet Orally Once a day Active Tamsulosin HCl 0.4 MG 2 capsule Orally Once a day Active Tadalafil 5 MG TAKE 1 TABLET BY MOUTH ONCE DAILY Oral for 90 Active Gemtesa 75 MG TAKE 1 TABLET BY MOUTH ONCE A DAY Oral for 30 N3281,Unavailab le Active Omeprazole 20 MG TAKE 1 CAPSULE BY MOUTH EVERY DAY Orally Once a day for 90 days Active MiraLax (colon prep) 17 GM/SCOOP mixed with Gatorade or Crystal Light Orally begin at 5:00 p.m. the day before the procedure for 1 day 06/13/2024 Active Joint Support Complex Active Myrbetriq 50 MG Orally Acti ve Finasteride Active Vitamin D3 25 MCG (1000 UT) [...] W/U Status Risk SNOMED Code Notes Problem Gastroesophageal reflux disease without esophagitis (K21.9) Active confirmed 298407071 Problem Colon cancer screening (Z12.11) Active confirmed 166960142 Problem Iron overload (E83.19) Active confirmed 61371180 Problem GERD without esophagitis (K21.9) Active confirmed 692252774 VITAL SIGNS Blood pressure diastolic 00 mm Hg 06/13/2024 Height 70 in 06/13/2024 Blood pressure systolic 00 mm Hg 06/13/2024 Weight 170 lbs 06/13/2024 BMI 24.39 kg/m2 06/13/2024 Encounters Encounter Location Date Provider Diagnosis [facility] [address] [place] [phone] 06/13/2024 Bobby Nugent Jr Colon cancer screening Z12.11 and GERD without esophagitis K21.9 [facility] [address] [place] [phone] 02/13/2024 Bobby Nugent Jr [facility] [address] [place] [phone] 02/13/2024 Bobby Nugent Jr ASSESSMENTS Encounter Date Diagnosis Assessment Notes Treatment Notes Treatment Clinical Notes 06/13/2024 Colon cancer screening (ICD-10 - Z12.11) 06/13/2024 GERD without esophagitis (ICD-10 - K21.9) Gastroesophageal reflux disease material was printed PLAN OF TREATMENT Future Test Test Name Order Date UPPER GI ENDOSCOPY 11/30/2016 COLONOSCOPY 11/30/2016 COLONOSCOPY 06/13/2024 Next Appt Details Provider Name:Bobby geronimo Jr, 07/23/2024 09:10:00 AM, [address] [facility] , [place], [place], [phone], Insurance Providers Payer Name Payer Address Payer Phone Subscriber Number Group Number Insured Name Patient Relationship to Insured Coverage Start Date Coverage End Date MEDICARE OF [place] [address] [place] [address] [place] [id number] [phone] [id number] KRISTEN AGRAWAL Self - patient is the insured [employer] ([employer]) [address] [place] [id number] [phone] [id number] TANJA KRISTEN Self - patient is the insured MEDICAL (GENERAL) HISTORY Medical History History ICD Code gastroesophageal reflux dise [facility], upper endoscopy 06/11 mild reflux on biopsy, normal stomach and duodenal biopsies chronic kidney disease hemochromatosis hyperlipidemia colonoscopy 06/11, mild sigm oid diverticulosis, no polyps, previous tubular adenoma 11/2005, 5-10 year followup overactive bladder (OAB) BPH Parkinson's disease (neurologist is Leonila Worley) Surgical History Surgery Date(Month/Year)
--- OUTSIDE RECORDS SUMMARY | 2024-07-19 12:53 | XMS_ITS | Clinical Summary ---
Author Organization [facility] Address [address] [address] Care Team Providers Care Sample Color Maker Name Role Phone Gurpreet Pena NP Primary Care Provider [phone] Allergies Active Allergy Reactions Criticality Noted Date Comments Iron Other (see comments) 10/14/2020 Medications atorvastatin (LIPITOR) 20 MG tablet Take 20 mg by mouth 1 (one) time each day Active Cholecalciferol (Vitamin D3) 25 MCG (1000 UT) capsule Take 25 mcg by mouth 1 (one) time each day Active finasteride (PROSCAR) 5 MG tablet Take 5 mg by mouth 1 (one) time each day Do not crush, chew, or split. Active tamsulosin (FLOMAX) 0.4 MG 24 hr capsule Take 0.4 mg by mouth in the morning and 0.4 mg in the evening. Active omeprazole (PriLOSEC) [address] capsule Take 1 capsule by mouth 1 (one) time each day 11/14/2021 Active Active Problems Problem Noted Date Diagnosed Date Hyperlipidemia 02/03/2022 Family History Medical History Relation Comments Cancer Father Hypertension Mother Relation Status Comments Father Mother Social History Tobacco Use Types Packs/Day Years Used Date Smoking Tobacco: Never Smokeless Tobacco: Never Tobacco Cessation:Counseling Given: Not Answered Alcohol Use Standard Drinks/Week Comments Not Currently 0 (1 standard drink = 0.6 oz pur e alcohol) Sex and Gender Information Value Date Recorded Sex Assigned at Not on file Legal Sex Male 9:10 AM EDT Gender Identity Not on file Sexual Orientation Not on file Last Filed Vital Signs Vital Sign Reading Time Taken Comments Blood Pressure 130/80 11/07/2022 2:44 PM EDT Pulse 77 11/07/2022 2:44 PM EDT Temperature - - Respiratory Rate - - Oxygen Saturation 97% 11/07/2022 2:44 PM EDT Inhaled Oxygen Concentration - - Weight 78.3 kg (172 lb 9.6 oz) 11/07/2022 2:44 P M EDT Height - - Body Mass Index - - Plan of Treatment Health Maintenance Due Date Last Done Comments Pneumococcal Vaccine: 65+ Ye ars (1 of 2 - PCV) 1961 Colorectal Cancer Screening: Annual FOBT 01/29/2004 Colorectal Cancer Screening: Colonoscopy 01/29/2004 Colorectal Cancer Screening: Sigmoidoscopy 01/29/2004 Influenza Vaccine (#1) 2024 Hepatitis B Vaccine Aged Out No longe r eligible based on patient's age to complete this topic Insurance [facility]ICARE [facility] MEDICARE [employer] Care Teams Sample Color Maker Relationship Specialty Start Date End Date Gurpreet Pena NP [address] [place] [address] PCP - General Nurse Practitioner 12/08/21
--- OUTSIDE RECORDS SUMMARY | 2024-07-19 12:53 | XMS_ITS ---
Author Organization [facility] Address [address] [place] [phone] Care Team Providers Care Manager Change Name Role Phone ODALIS DE LA TORRE Primary Care Provider Bobby Manzo Jr REASON FOR VISIT PLEASE REFILL RX FOR DR ARNETT MEDICATIONS Medication SIG (Take, Route, Fr equency, Duration) Notes Start Date End Date Status Omeprazole 20 MG TAKE 1 CAPSULE BY MO UT EVERY DAY Orally Once a day for 90 days Ac tive Encounters Encounter Location Date Provider Diagnosis [facility] [address] [place] [phone] 02/13/2024 Bobby Nugent Jr PLAN OF TREATMENT Medication Medication Name Sig Start Date Stop Date Notes Omeprazole 20 MG TAKE 1 CAPSULE BY MO UT EVERY DAY Orally Once a day for 90 days Next Appt Details Provider Name:Bobby geronimo Jr, 07/23/2024 09:10:00 AM, [address] [place] [address] , [place], [place], [phone],
--- OUTSIDE RECORDS SUMMARY | 2024-07-19 12:53 | XMS_ITS ---
Author Organization [facility] Address [address] [facility] [address] [place] [phone] Care Team Providers Care Insurance Auditor Name Role Phone ODALIS DE LA TORRE Primary Care Provider Bobby Manzo Jr REASON FOR VISIT needs refill script for omeprazole Encounters Encounter Location Date Provider Diagnosis [facility] [address] [facility] [address] [place] [phone] 02/13/2024 Bobby Nugent Jr PLAN OF TREATMENT Next Appt Details Provider Name:Bobby geronimo Jr, 07/23/2024 09:10:00 AM, [address] [facility] , [place], [place], [phone],
== END 2024-07-19 10:53 | disposition home or self-care (01) ==
LOC: HO.BBR 10:52
PROVIDERS: PCP Nurse Practitioner Family; Visit Provider Internal Medicine
DX: Z13.89 Encounter for screening for other disorder (principal)

== ENCOUNTER 2024-07-23 07:28 | Day surgery (SDC) | payer MEDICARE, OTHER, SELFPAY ==
[2024-07-19 14:47] VITALS: BMI 24.4
--- NOTE | 2024-07-22 11:59 | P.CONAN_ITS ---
Documented by User: Brisa Suazo NP 07/22/24 12:00 HPI - Anesthesia Eval Consult details Narrative: 69yo M for Colonoscopy PMFSH Active Problems Active Problems: All Active Problems Screening for colon cancer (Acute) Encounter for routine adult physical exam with abnormal findings (Acute) Vitamin D deficiency (Acute) CKD (chronic kidney disease) (Acute) Cerumen impaction (Acute) Pain of left heel (Acute) Ringing of ears (Acute) Parkinson's disease (Acute) Elevated liver enzymes (Acute) Parkinsons (Acute) Elevated serum creatinine (Acute) Screening PSA (prostate specific antigen) (Acute) Microscopic hematuria (Acute) Tremor of right hand (Acute) Skin lesion (Acute) Tachycardia (Acute) Dyslipidemia (Acute) Iron overload (Chronic) Parkinson's disease without dyskinesia (Acute) Rash (Acute) Past Medical History Medical History (Updated 07/19/24 @ 14:48 by Kirsten Rodriguez RN) Parkinson's disease without dyskinesia Rash Hereditary hemochromatosis OAB (overactive bladder) BPH (benign prostatic hyperplasia) High cholesterol Family History Family History Father Stomach cancer Paternal Aunt Stomach cancer Paternal Uncle Stomach cancer Mother HTN (hypertension) Heart disease Sister No problems noted. Son No problems noted. Son No problems noted. Surgical History Surgical History (Updated 07/23/24 @ 07:55 by Shavon Hunter RN) History of back surgery History of esophagogastroduodenoscopy (EGD) H/O colonoscopy Social History Social History Household Members: Spouse Housing: House Are you a primary janitor caretaker to a significant other at home: No Do you presently have visiting nurse or other home services: No Alcohol intake: current Alcohol intake frequency: a few times a month Alcohol type: beer Patient Tobacco Use Status: Never used Tobacco e-Cigarette/Vaping Use: Never Used Use of substances other than those prescribed or required for medical reasons: No Are you DNR?: No Advance Directives: No Advance Directives Information Provided: Yes Recently lost weight without trying: No Nutrition Risks: No Nutritional Risk Poor oral hygiene: No service: No Current occupational status: retired Cognitive needs: No Hearing needs: No Vision needs: Yes Meds Allergies Allergy/AdvReac Type Severity Reaction Status Date / Time No Known Allergies Allergy Verified 05/13/24 10:54 Home Medications ?Medication ?Instructions ?Recorded ?Confirmed ?Last Taken ?Type finasteride 5 mg tablet 5 mg PO DAILY 04/07/20 07/19/24 Unknown History omeprazole 20 mg capsule,delayed 20 mg PO DAILY 04/07/20 07/19/24 Unknown History release tamsulosin 0.4 mg capsule 0.4 mg PO BID 04/07/20 07/19/24 Unknown History tadalafil 5 mg tablet 5 mg PO DAILY 07/27/23 07/19/24 Unknown History vibegron 75 mg tablet (Gemtesa) 75 mg PO DAILY 12/12/23 07/19/24 Unknown History Exam Height,Weight and Vital Signs: Height 5 ft 10 in Weight 77.111 kg Pertinent Lab Results Pertinent Lab Results: Laboratory Tests 01/15/24 05/09/24 06:52 16:04 WBC 5.7 Hgb 15.2 Hct 43.4 Plt Count 187 Sodium 141 Potassium 3.9 Chloride 105 Carbon Dioxide 28 BUN 20 H Creatinine 1.44 H Assessment and Plan Assessment Anesthesia Assessment: Chart Reviewed Documented by User: Mee Gallardo MD 07/23/24 08:28 [facility] Past Medical History Medical History (Updated 07/19/24 @ 14:48 by Kirsten Rodriguez RN) Parkinson's disease without dyskinesia Rash Hereditary hemochromatosis OAB (overactive bladder) BPH (benign prostatic hyperplasia) High cholesterol Family History Family History Father Stomach cancer Paternal Aunt Stomach cancer Paternal Uncle Stomach cancer Mother HTN (hypertension) Heart disease Sister No problems noted. Son No problems noted. Son No problems noted. Family history of problems with anesthesia: No Surgical History Surgical History (Updated 07/23/24 @ 07:55 by Shavon Hunter RN) History of back surgery History of esophagogastroduodenoscopy (EGD) H/O colonoscopy History of Problems with Anesthesia: No Social History Social History Household Members: Spouse Housing: House Are you a primary janitor caretaker to a significant other at home: No Do you presently have visiting nurse or other home services: No Alcohol intake: current Alcohol intake frequency: a few times a month Alcohol type: beer Patient Tobacco Use Status: Never used Tobacco e-Cigarette/Vaping Use: Never Used Use of substances other than those prescribed or required for medical reasons: No Are you DNR?: No Advance Directives: No Advance Directives Information Provided: Yes Recently lost weight without trying: No Nutrition Risks: No Nutritional Risk Poor oral hygiene: No service: No Current occupational status: retired Cognitive needs: No Hearing needs: No Vision needs: Yes Meds Allergies Allergy/AdvReac Type Severity Reaction Status Date / Time No Known Allergies Allergy Verified 05/13/24 10:54 Home Medications ?Medication ?Instructions ?Recorded ?Confirmed ?Last Taken ?Type finasteride 5 mg tablet 5 mg PO DAILY 04/07/20 07/19/24 Unknown History omeprazole 20 mg capsule,delayed 20 mg PO DAILY 04/07/20 07/19/24 Unknown History release tamsulosin 0.4 mg capsule 0.4 mg PO BID 04/07/20 07/19/24 Unknown History tadalafil 5 mg tablet 5 mg PO DAILY 07/27/23 07/19/24 Unknown History vibegron 75 mg tablet (Gemtesa) 75 mg PO DAILY 12/12/23 07/19/24 Unknown History Exam Airway Mallampati Class: II TM Dist: >3cm Neck ROM: Full Assessment and Plan Assessment Anesthesia Assessment: Anesthesia Plan Discussed Final Anesthetic Review Family History of Problems with Anesthesia: No History of Problems with Anesthesia: No NPO: Yes ASA Class: III Final Preanesthetic Review: No Changes in Pt Med Stat, Meds/Allgs Chart Reviewed, Consent Obtained/Reviewed, Anes Risks/Benef Reviewed and DNR Form (If Appl.) Patient Risk: Intermediate Procedure Risk: Low Anesthetic Plan Anesthetic Plan: TIVA Disposition: Standard PACU
--- OUTSIDE RECORDS SUMMARY | 2024-07-23 07:32 | XMS_ITS | Clinical Summary ---
Author Organization [facility] Address [address] [address] Care Team Providers Care Software Design Engineer Name Role Phone Gurpreet Pena NP Primary Care Provider [phone] Allergies Active Allergy Reactions Criticality Noted Date [...] age to complete this topic Insurance MEDICARE [facility] MEDICARE [employer] Care Teams Software Design Engineer Relationship Specialty Start Date End Date Gurpreet Pena NP [address] [place] [address] PCP - General Nurse Practitioner 12/08/21
--- OUTSIDE RECORDS SUMMARY | 2024-07-23 07:32 | XMS_ITS | Patient Health Record ---
Author Organization [facility] Address [address] [place] [phone] Care Team Providers Care Director Of Corporate Sales Name Role Phone ODALIS DE LA TORRE [...] reflux disease without esophagitis (K21.9) Active confirmed 426932382 Problem Colon cancer screening (Z12.11) Active confirmed 940451871 Problem Iron overload (E83.19) Active confirmed 11685060 Problem GERD without esophagitis (K21.9) Active confirmed 646950264 VITAL SIGNS Blood pressure diastolic 00 mm Hg 06/13/2024 Height 70 in 06/13/2024 Blood pressure systolic 00 mm Hg 06/13/2024 Weight 170 lbs 06/13/2024 BMI 24.39 kg/m2 06/13/2024 Encounters Encounter Location Date Provider Diagnosis [facility] Outpatient [address] [place] [phone] 07/23/2024 Bobby Nugent Jr [facility] [address] [place] [phone] 06/13/2024 Bobby Nugent Jr Colon cancer screening Z12.11 and GERD without esophagitis K21.9 [facility] [address] [place] [phone] 02/13/2024 Bobby Nugent Jr [facility] [address] [place] [phone] 02/13/2024 Bobby Nugent Jr ASSESSMENTS Encounter Date Diagnosis Assessment Notes Treatment Notes Treatment Clinical Notes 06/13/2024 Colon cancer screening (ICD-10 - Z12.11) 06/13/2024 GERD without esophagitis (ICD-10 - K21.9) Gastroesophageal reflux disease material was printed PLAN OF TREATMENT Future Test Test Name Order Date UPPER GI ENDOSCOPY 11/30/2016 COLONOSCOPY 11/30/2016 COLONOSCOPY 06/13/2024 Next Appt Details Provider Name:Bobby geronimo Jr, 07/23/2024 09:10:00 AM, [address] [place] [address] , [place], [place], [phone], Insurance Providers Payer Name Payer Address Payer Phone Subscriber Number Group Number Insured Name Patient Relationship to Insured Coverage Start Date Coverage End Date MEDICARE OF [place] [address] [place] [id number] [phone] [id number] KRISTEN AGRAWAL Self - patient is the insured [employer] ([employer]) [address] [place] [phone] [id number] KRISTEN AGRAWAL Self - patient is the insured MEDICAL (GENERAL) HISTORY Medical History History ICD Code gastroesophageal reflux dise ase, upper endoscopy 06/11 mild reflux on biopsy, normal stomach and duodenal biopsies chronic kidney disease hemochromatosis hyperlipidemia colonoscopy 06/11, mild sigm oid diverticulosis, no polyps, previous tubular adenoma 11/2005, 5-10 year followup overactive bladder (OAB) BPH Parkinson's disease (neurologist is Leonila Worley) Surgical History Surgery Date(Month/Year)
--- OUTSIDE RECORDS SUMMARY | 2024-07-23 07:32 | XMS_ITS ---
Author Organization [facility] Address [address] [facility] [address] [place] [phone] Care Team Providers Care Arrow Point Attacher Name Role Phone ODALIS DE LA TORRE Primary Care Provider Bobby Manzo Jr REASON FOR VISIT needs refill script for omeprazole Encounters Encounter Location Date Provider Diagnosis [facility] [address] [facility] [address] [place] [phone] 02/13/2024 Bobby Nugent Jr PLAN OF TREATMENT Next Appt Details Provider Name:Bobby geronimo Jr, 07/23/2024 09:10:00 AM, [address] [facility] , [place], [place], [phone],
--- OUTSIDE RECORDS SUMMARY | 2024-07-23 07:32 | XMS_ITS ---
Author Organization [facility] Address [address] [place] [phone] Care Team Providers Care Computer Lab Aide Name Role Phone ODALIS DE LA TORRE Primary Care Provider UnavailBobby Lopez Jr Unavailable [phone] ALLERGIES Allergen (clinical drug ingredient) Drug/Non Drug [...] Problem GERD without esophagitis (K21.9) Active confirmed [id number] VITAL SIGNS BMI 24.39 kg/m2 06/13/2024 Blood pressure systolic 00 mm Hg 06/13/20 24 Blood pressure diastolic 00 mm Hg 024 Height 70 in 06/13/2024 Weight 170 lbs 06/13/2024 Encounters Encounter Location Date Provider Diagnosis [facility] [address] [facility] [address] [place] [phone] 06/13/2024 Bobby Nugent Jr Colon cancer screening [...] Provider Name:Bobby geronimo Jr, 07/23/2024 09:10:00 AM, [address] [place] [address] , [place], [place], [phone], Progress Notes * Examination Category Sub-Category Detail [...]
--- OUTSIDE RECORDS SUMMARY | 2024-07-23 07:32 | XMS_ITS ---
Author Organization [facility] Address [address] [place] [address] Care Team Providers Care Shearing Shed Hand Name Role Phone ODALIS DE LA TORRE Primary Care Provider Bobby Manzo Jr [phone] REASON FOR VISIT screening Encounters Encounter Location Date Provider Diagnosis [facility] Outpatient [address] [place] [phone] 07/23/2024 Bobby Nugent Jr PLAN OF TREATMENT Next Appt Details Provider Name:Bobby geronimo Jr, 07/23/2024 09:10:00 AM, [address] [place] [address] , [place], [place], [phone],
[2024-07-23 07:55] VITALS: BMI 24.5
[2024-07-23 08:00] VITALS: BP 115/62; PULSE 78; RESP 16; TEMP 36.7; O2SAT 98
--- NOTE | 2024-07-23 08:11 | MHC.SHP ---
Pre-Procedural Eval Section A - 24 Hr Update-Section A only Date of Service: 07/23/24 Section B - Complete if H&P > 30 days Chief Complaint: screening Details of Present Illness: see H&P no changes Relevant Family History (Specify if Yes): No Relevant Social History: None Present Medications: see Short Stay Collaborative assessment Medical History: No relevant PMH History of Previous Operations: No relevant previous surgery Allergies: Allergies Allergy/AdvReac Type Severity Reaction Status Date / Time No Known Allergies Allergy Verified 05/13/24 10:54 Review of Systems Sugical H&P ROS: Negative: Constitution, Cardiovascular, Respiratory, Neurological, Psychiatric, Hem-Onc, Allergic/Immunologic, Gastrointestinal, Genitourinary, Musculoskeletal, Integumentary, Endocrine and Eyes/Ears/Nose/Throat Exam Surgical H&P Exam: Normal: HEENT, Normal: Heart, Normal: Lungs, Normal: Extremities, Normal: Abdomen, Normal: Skin and Normal: Neurological Plan Diagnosis/Plan: Unchanged I have reviewed the history and physical and performed a pertinent physical examination on my patient. No changes have occurred unless specified. Time Spent With Patient Time: Total time managing care of this patient today ____ minutes.
[2024-07-23] MEDS: Lactated Ringers 1,000 ML 100 ML IVCONT (08:21)
[2024-07-23 09:43] VITALS: BP 92/42; PULSE 58; RESP 20; TEMP 36.2; O2SAT 98
[2024-07-23 09:59] VITALS: BP 103/52; PULSE 61; RESP 16; O2SAT 98
[2024-07-23 10:07] VITALS: BP 110/62; PULSE 61; RESP 16; TEMP 36.9; O2SAT 98
--- NOTE | 2024-07-23 10:17 | OP_ITS ---
DATE OF SERVICE: 07/23/2024 SURGEON: Bobby Nugent MD INDICATIONS: Colon cancer screening. PREOPERATIVE DIAGNOSIS: POSTOPERATIVE DIAGNOSIS: PROCEDURE PERFORMED: Colonoscopy to the terminal ileum with biopsy. ESTIMATED BLOOD LOSS: COMPLICATIONS: ANESTHESIA: Monitored anesthesia care. ASSISTANTS: SPECIMENS: DESCRIPTION OF PROCEDURE: A history and physical was performed. The risks and benefits of the procedure were explained to the patient. Informed consent was obtained. The patient was placed in the left lateral decubitus position. A digital rectal exam was performed and was found to be normal. The Olympus pediatric video colonoscope was introduced into the rectum and advanced to the cecum. The cecum was identified by transillumination, palpation, and identification of ileocecal valve. Examination was performed. The scope was removed. He tolerated the procedure well and was returned to the recovery area in stable condition. FINDINGS: The terminal ileum was examined and appeared normal. The visualized colonic mucosa was normal. The quality of the prep was good. Two polyps were identified and removed with a biopsy forceps. Both measured less than 10 mm. These were located at 60 cm into the rectum. There was mild sigmoid diverticulosis. Retroflexed examination showed some internal hemorrhoids. IMPRESSION: Colon polyps. RECOMMENDATION: Follow up the biopsy results. MD DAISY Morrow/MODL / [id number]
== END 2024-07-23 10:25 | disposition home or self-care (01) ==
PROVIDERS: PCP Nurse Practitioner Family; Visit Provider Internal Medicine Gastroenterology
PROC: 0DJD8ZZ Inspection of Lower Intestinal Tract, Via Natural or Artificial Opening Endoscopic (ICD-10-PCS; CPT 45378; principal; 2024-07-23 09:10)
DX: Z12.11 Encounter for screening for malignant neoplasm of colon (principal); Z86.0101 Personal history of adenomatous and serrated colon polyps; Z83.719 Family history of colon polyps, unspecified; D12.4 Benign neoplasm of descending colon; D12.8 Benign neoplasm of rectum; K57.30 Diverticulosis of large intestine without perforation or abscess without bleeding; K64.8 Other hemorrhoids; K21.9 Gastro-esophageal reflux disease without esophagitis; G20.A1 Parkinson's disease without dyskinesia, without mention of fluctuations; N18.9 Chronic kidney disease, unspecified; N40.0 Benign prostatic hyperplasia without lower urinary tract symptoms; N32.81 Overactive bladder; Z79.899 Other long term (current) drug therapy; E83.110 Hereditary hemochromatosis; E78.5 Hyperlipidemia, unspecified
CPT/HCPCS: 45380; 88305

== ENCOUNTER 2024-09-16 11:02 | Outpatient (REF) | payer MEDICARE, OTHER, SELFPAY | END 2024-09-16 11:03 | disposition home or self-care (01) | LOC: HO.BBR 11:02 | PROVIDERS: PCP Nurse Practitioner Family; Visit Provider Internal Medicine | DX: Z13.89 Encounter for screening for other disorder (principal) ==

== ENCOUNTER 2024-09-19 13:49 | Outpatient (AMB) | payer MEDICARE, OTHER, SELFPAY ==
--- NOTE | 2024-09-19 13:55 | MHC.OFFVIS ---
Vital Signs 09/19/24 13:57 Height 5 ft 10 in Weight 175 lb BMI 25.1 Intake Visit Reasons: Follow up Intake Note: Patient following up on parkinson's disease Allergies No Known Allergies Allergy (Verified 09/19/24 13:57) HPI Comments Details: 69y/o right handed male comes for follow up regarding parkinsons.His DOROTEO scan was negative . He denies any worsening .His symptoms fluctuate. PT - he did BIG program He starting noticing in his right hand about 3 years ago. The tremors are mostly at rest and has worsened since then . he was seen by about 2 years and he was diagnosed with parkinsons. Cognition- normal Mood- normal Sleep- trouble going back to sleep when he wakes up at 5 AM . No vivid dreams or acting out dreams. He is motivated. Speech- softer No drooling Handwriting- no change as per patient No stiffness No difficulty with utensils, dressing, showering No difficulty changing positions in bed. Gait normal No falls No dizziness No hallucinations Normal bowel movements. No exposure to pesticides, well water, chemicals No head injury [facility] Medical History Parkinson's disease without dyskinesia Rash Hereditary hemochromatosis OAB (overactive bladder) BPH (benign prostatic hyperplasia) High cholesterol Surgical History History of back surgery History of esophagogastroduodenoscopy (EGD) H/O colonoscopy Family History Father Stomach cancer Paternal Aunt Stomach cancer Paternal Uncle Stomach cancer Mother HTN (hypertension) Heart disease Sister No problems noted. Son No problems noted. Son No problems noted. Social History Household Members: Spouse Housing: House Are you a primary managed care provider to a significant other at home: No Do you presently have visiting nurse or other home services: No Alcohol intake: current Alcohol intake frequency: a few times a month Alcohol type: beer Patient Tobacco Use Status: Never used Tobacco e-Cigarette/Vaping Use: Never Used service: No Current occupational status: retired Cognitive needs: No Hearing needs: No Vision needs: Yes Physical Exam Vital Signs: BMI result Body Mass Index 25.1 Const General: cooperative, healthy appearing, comfortable and no acute distress Nutritional Appearance: average body habitus Orientation/consciousness: patient oriented x3 Limitations: no limitations Eyes Pupils: Equal, round and reactive pupils present Neuro Other: very mild decreased blink facial expression, stoop, hypophonia right UE intermittent rest tremors moderate amplitude gait - decreased arm swing right UE Cog wheel rigidty 1 = right UE FFM and foot taps normal General: patient oriented x3, moves all extremities and no focal motor deficits Cranial nerves: Yes Facial sensation intact/muscles of mastication intact, Yes Equal, round and reactive pupils present, Yes Nystagmus not present, Yes Normal facial strength present and Yes Midline tongue present Cognition (Neuro): normal cognition Gait exam (Neuro): Other gait observations present (normal stride, mild stoop, decreased right arm swing) Motor exam (neuro): 5/5 motor strength present throughout Coordination: [id number] test normal Assessment & Plan Assessment & Plan (1) Parkinson's disease without dyskinesia: Code(s): G20.A1 - Parkinson's disease without dyskinesia, without mention of fluctuations Category: Medical Qualifiers: Fluctuating manifestations: without fluctuating manifestations Qualified Code(s): G20.A1 - Parkinson's disease without dyskinesia, without mention of fluctuations Plan Discussed various management options Continue exercises. Doroteo scan results reviewed consider repeat DOROTEO scan Coding Level of Care Code Est Pt Level 4 (22935) Diagnoses Parkinson's disease without dyskinesia or fluctuating manifestations G20.A1 Fluctuating manifestations: without fluctuating manifestations
[2024-09-19 13:57] VITALS: BMI 25.1
--- OUTSIDE RECORDS SUMMARY | 2024-09-19 17:15 | XMS_ITS ---
Author Organization [facility] Address [address] [place] [address] Care Team Providers Care Desk Top Publisher Name Role Phone ODALIS DE LA TORRE Primary Care Provider UnavailBobby Lopez Jr [phone] Allergies Allergen (clinical drug ingredient) Drug/Non Drug Allergy documented on EMR Reaction Allergy Type Onset Date Status ferrous sulfate Iron no iron due to hemochromatosis Drug Allergy Active REASON FOR VISIT Patient presents today for a screening colonoscopy Medications Medication SIG (Take, Route, Frequency, Duration) Notes [...] (1000 UT) Orally Once a day Active Social History Tobacco Use: Social History Observation Description Date Details (start date - stop date) Never Smoker NA - NA Tobacco Use/Smoking Question Answer Notes Patient is [...] Never (0 point) Points 2 Interpretation Negative Problems Problem Type SNOMED Code ICD Code Onset Dates Problem Status W/U Status Risk Notes Problem 185436047 GERD without esophagitis (K21.9) Active confirmed Vital Signs Blood pressure systolic 00 mm Hg 06/13/20 24 Blood pressure diastolic 00 mm Hg 024 Height 70 in 06/13/2024 Weight 170 lbs 06/13/2024 BMI 24.39 kg/m2 06/13/2024 Encounters Encounter Location Date Provider Diagnosis [facility] [address] [facility] [address] [place] [address] 06/13/2024 Bobby Nugent Jr Colon cancer screening Z12.11 and GERD without esophagitis K21.9 Assessments Encounter Date Diagnosis (ICD Code) Assessment Notes Treatment Notes Treatment Clinical Notes Section Notes 06/13/2024 Colon cancer screening (ICD-10 - Z12.11) At this time, he is doing well. We discussed gastroesophageal reflux disease today. We discussed diet, lifestyle modifications, and weight management regarding the treatment of reflux. He is advised to continue omeprazole. He is due for colorectal cancer screening. This will be arranged. He understands risks and benefits and agrees to proceed. 06/13/2024 GERD without esophagitis (ICD-10 - K21.9) Gastroesophageal reflux disease material was printed At this time, he is doing well. We discussed gastroesophageal reflux disease today. We discussed diet, lifestyle modifications, and weight management regarding the treatment of reflux. He is advised to continue omeprazole. He is due for colorectal cancer screening. This will be arranged. He understands risks and benefits and agrees to proceed. Plan Of Treatment Medication Medication Name Sig Start Date Stop [...] Appt Details Follow Up: 1 Year, Reason: Progress Notes * KRISTEN PERRY LDOB:1955 (69 yo M)Acc No.[id number]:06/13/2024 Progress Notes Patient:?KRISTEN PERRY Provider:?Bobby Nugent MD :1955???Age:69 Y???Sex:Male Doroteo e:06/13/2024 Address:[address] [place], [place] [id number] Pcp:ODALIS DE LA TORRE Subjective: * Chief Complaints: * ???1. Patient presents today for a screening colonoscopy. * HPI: ???New symptom(s):? Mr. Perry is a pleasant 69-year-old man who returns today for followup of gastroesophageal reflux disease and colon cancer screening. He was last seen in September of 2021. Since that time, he's been doing well. Today, he reports reflux symptoms are under good control on omeprazole 20 mg daily. This controls his substernal burning well. He has no dysphagia, hematemesis, or melena. Weight and appetite have been stable. He has been diagnosed with Parkinson's disease since we saw him last. Currently he is not having any swallowing issues. ?He last underwent colonoscopy in 2017 which was negative for polyps. He does have a history of prior tubular adenomas, and is due for followup. He has no complaints of rectal bleeding or change in his bowel habits. There is a history of colon polyps in primary family members. We reviewed this today. * ROS:?General/Constitutional:?Change in appetite?denies.?Fatigue?denies.?ENT:?Patient denies?difficulty swallowing.?Respiratory:?Patient denies?shortness of breath.?Cardiovascular:?Patient denies?chest pain.?Gastrointestinal:?Comments?See HPI for details.?Genitourinary:?Difficulty urinating?denies.?Incontinence?denies.?Musculoskeletal:?Patient denies?muscle aches.?Skin:?Patient denies?pruritis.?Neurologic:?Patient denies?low back pain.?Psychiatric:?Patient denies?mental or physical abuse.? * Medical History:?Gastroesoph ageal reflux disease, upper endoscopy 06/11 mild reflux on biopsy, normal stomach and duodenal biopsies, Chronic kidney disease, Hemochromatosis, Hyperlipidemia, Colonoscopy 06/11, mild sigmoid diverticulosis, no polyps, previous tubular adenoma 11/2005, 5-10 year followup, overactive bladder (OAB), BPH, Parkinson's disease (neurologist is Leonila Worley). * Surgical History:?Denies Pas t Surgical History. * Family History:?Father: dece ased, stomach cancer.?Mother: alive, diagnosed with HTN (hypertension).? Father had stomach cancer. Sister has had colon polyps Denies family hx of colon cancer or liver ds. * Social History:?Tobacco Use:?Tobacco Use/Smoking?Patient is a?nonsmoker.?Drugs/Alcohol:?Alcohol Screen?Did you have a drink containing alcohol in the past year??Yes,?How often did you have a drink containing alcohol in the past year??2 to 4 times a month (2 points),?How many drinks did you have on a typical day when you were drinking in the past year??1 or 2 drinks (0 point),?How often did you have 6 or more drinks on one occasion in the past year??Never (0 point),?Points?2,?Interpretation?Negative.?Miscellaneous:?Marital status: . Occupation: retired. * Medications:?Taking Tamsulos in HCl 0.4 MG Capsule Extended Release 24 Hour 2 capsule Orally Once a day, Taking Atorvastatin Calcium 20 MG Tablet 1 tablet Orally Once a day, Taking Vitamin D3 25 MCG (1000 UT) Tablet Orally Once a day, Taking Finasteride , Taking Myrbetriq 50 MG Tablet Extended Release 24 Hour Orally , Taking Joint Support Complex , Taking Omeprazole 20 MG Capsule Delayed Release TAKE 1 CAPSULE BY MOUTH EVERY DAY Orally Once a day, Taking Gemtesa 75 MG Tablet TAKE 1 TABLET BY MOUTH ONCE A DAY Oral , Notes: N3281,Unavailable, Taking Tadalafil 5 MG Tablet TAKE 1 TABLET BY MOUTH ONCE DAILY Oral , Discontinued Toviaz 8 MG Tablet Extended Release 24 Hour Orally , Discontinued Vitamin A , Discontinued Zinc , Discontinued Lucio Martinez , Notes: complex, Medication List reviewed and reconciled with the patient * Allergies:?Iron: no iron due to hemochromatosis. Objective: * Vitals:?Wt: 170 lbs, Ht: 70 in, BMI:24.39 Index, BP: 00/00 mm Hg. * Examination: ???General Examination: ?GENERAL APPEARANCE:?in no acute distress.?HEAD:?normocephalic.?EYES:?sclera non-icteric.?ORAL CAVITY:?mucosa moist.?NECK/THYROID:?no lymphadenopathy.?SKIN:?anicteric.?HEART:?S1, S2 normal, no murmurs.?LUNGS:?clear to auscultation bilaterally.?CHEST:?normal shape and expansion.?ABDOMEN:?soft, nontender, nondistended, bowel sounds present, no organomegaly .?EXTREMITIES:?no clubbing, cyanosis, or edema.?PSYCH:?cognitive function intact.? Assessment: * Assessment: 1.?GERD without esophagitis - K21.9 (Primary)?2.?Colon cancer screening - Z12.11? At this time, he is doing we ll. We discussed gastroesophageal reflux disease today. We discussed diet, lifestyle modifications, and weight management regarding the treatment of reflux. He is advised to continue omeprazole. He is due for colorectal cancer screening. This will be arranged. He understands risks and benefits and agrees to proceed. Plan: * Treatment: 2.?Colon cancer screening? Start MiraLax (colon prep) Powder, 17 GM/SCOOP, mixed with Gatorade or Crystal Light, Orally, begin at 5:00 p.m. the day before the procedure, 1 day, 8.3 Ounce, Refills 0.?Procedure: COLONOSCOPY (Ordered for 06/13/2024) * Procedure Codes:?3017F COLOR ECTAL CA SCREEN DOC REV, G9903 Pt scrn tbco id as non user, G9745 DOC RSN FOR NOT SCREEN/REC F/U HBP * Preventive Medicine:? ??Screenings:?Fall Risk Screening?Fall Risk Assessment:?No falls in the past year,?Screening:?No falls in the past year,?Assessment:?Not performed, no reason specified,?Plan of Care:?Not documented, no reason specified.? * Follow Up:?1 Year * * Sign off status: Completed true * Provider:?Bobby Nugent MD Date:?1 08/14/2023 Generated for Jesii karen/Ofleia/eTransmitting on:?09/19/2024 05:15 PM EDT History and Physical Notes * HPI (History of Present Illness) Category Sub-Category Detail Notes Category Not es New symptom(s) Mr. Perry is a pleasant 69-year-old man who returns today for followup of gastroesophageal reflux disease and colon cancer screening. He was last seen in September of 2021. Since that time, he's been doing well. Today, he reports reflux symptoms are under good control on omeprazole 20 mg daily. This controls his substernal burning well. He has no dysphagia, hematemesis, or melena. Weight and appetite have been stable. He has been diagnosed with Parkinson's disease since we saw him last. Currently he is not having any swallowing issues. He last underwent colonoscopy in 2017 which was negative for polyps. He does have a history of prior tubular adenomas, and is due for followup. He has no complaints of rectal bleeding or change in his bowel habits. There is a history of colon polyps in primary family members. We reviewed this today. Examination Category Sub-Category Detail Notes Category Not es General Examination GENERAL APPEARANCE: in no acute di stress HEAD: normocephalic EYES: sclera non-icteric NECK/THYROID: no lymphadenopathy HEART: S1, S2 normal, no mu rmurs CHEST: normal shape and exp ansion LUNGS: clear to auscultatio n bilaterally ABDOMEN: soft, nontender, non distended, bowel sounds present, no organomegaly SKIN: anicteric EXTREMITIES: no clubbing, cyanosi s, or edema PSYCH: cognitive function i ntact ORAL CAVITY: mucosa moist
--- OUTSIDE RECORDS SUMMARY | 2024-09-19 17:15 | XMS_ITS | Patient Health Record ---
Author Organization [facility] Address [address] [place] [address] Care Team Providers Care Product Owner Name Role Phone ODALIS PENA Primary Care Provider Bobby Manzo Jr Allergies Allergen (clinical drug ingredient) Drug/Non Drug Allergy documented on EMR Reaction Allergy Type Onset Date Status ferrous sulfate Iron no iron due to hemochromatosis Drug Allergy Active Results Component Value Reference Range Notes Pathology Reviewed date:08/01/2024 08:12:45 AM Interpretation: Performing Lab:[facility], [address] [place] [id number] Notes/Report: Name: Rashad Perry Age/Sex: 69/M : 1955 Unit#: [id number] Attend Dr: Bobby Nugent MD Re07/23/24 Status : [facility] Location: [facility] Disch: SPEC : [id number] RECD: 07/23/24 STATUS: PETRA DE GUZMAN NUM: [id number] SARA: 07/23/24 [facility] DR: Bobby Nugent MD ENTERED: 07/23/24 24 SP TYPE: Surgical OTHR DR: Odalis Pena [facility] ORDERED: HE Stain/6, Gross Micro L4/2 Diagnosis A. Colon, 60 cm, tiago ypectomy: Fragments of tubular adenoma; negative for high-grade dysplasia or carcinoma. B. Rectum, polypecto my: Fragments of tubular adenoma; negative for high-grade dysplasia or carcinoma. Clinical History Pre-Op Dx: Screening Post-Op Dx: Colon po lyps, diverticulosis Microscopic Description A, B. Microscopic se ctions reviewed. Material Received A. Polyp at 60cm B. Rectal polyp Gross Description Received in two parts. Part A: Received in formalin labeled ?polyp at 60 cm? are 2 polanco-pink irregular tissue fragments measuring 0.25 and 0.35 cm, submitted in toto in a cassette labeled A. Part B: Received in formalin labeled ?rectal polyp? are 3 polanco and polanco-pink irregular tissue fragments ranging fr om 0.1 to 0.25 cm, submitted in toto in a cassette labeled B. CEDS Copies To: Bobby Nugent MD [address] [place] [address] CONTINUED ON NEXT PAGE Name: Rashad Perry Age/Sex: 69/M : 1955 Unit#: [id number] Attend Dr: Bobby Nugent MD Re07/23/24 [place] [facility] [facility] Disch: SPEC : [id number] RECD : 07/23/24 STATUS: PETRA DE GUZMAN NUM: [id number] SARA: 07/23/[address] [facility] [address]: Bobby Nugent MD ENTERED: 07/23/24 SP TYPE: [facility]: FLOYD Stain/6, Kiana Samay[place] L4/2 Copies To: (Continued) Odalis Pena [place] [id number] Signed (si gnature on file) Adrián Price MD 07/25/24 0650 END OF REPORT Reason For Referral No Information Medications Medication SIG (Take, Route, Frequency, Duration) [...] Problem Status W/U Status Risk Notes Problem [id number] Colon cancer screening (Z12.11) Active confirmed Problem 100992617 Gastroesophageal reflux disease without esophagitis (K21.9) Active confirmed Problem 741325739 GERD without esophagitis (K21.9) Active confirmed Problem 71951973 Iron overload (E83.19) Active confirmed Vital Signs Blood pressure diastolic 00 mm Hg 06/13/2024 Height 70 in 06/13/2024 Blood pressure systolic 00 mm Hg 06/13/2024 Weight 170 lbs 06/13/2024 BMI 24.39 kg/m2 06/13/2024 Encounters Encounter Location Date Provider Diagnosis [facility] [place] [address] [place] [phone] 07/23/2024 Bobby Nugent Jr Colon cancer screening Z12.11 and FH: colon polyps Z83.719 [facility] [address] [facility] [address] [place] [address] 06/13/2024 Bobby Nugent Jr Colon cancer screening Z12.11 and GERD without esophagitis K21.9 [facility] [address] [place] [address] 02/13/2024 Bobby Nugent Jr [facility] [address] [place] [address] 02/13/2024 Bobby Nugent Jr [facility] [address] [place] [address] 08/01/2024 Bobby Nugent Jr Assessments Encounter Date Diagnosis (ICD Code) Assessment Notes Treatment Notes Treatment Clinical Notes Section Notes 07/23/2024 Colon cancer screening (ICD-10 - Z12.11) 07/23/2024 FH: colon polyps (ICD-10 - Z83.719) 06/13/2024 Colon cancer screening (ICD-10 - Z12.11) [...] and agrees to proceed. Plan Of Treatment Future Test Test Name Order Date UPPER GI ENDOSCOPY 11/30/2016 COLONOSCOPY 11/30/2016 COLONOSCOPY 06/13/2024 Insurance Providers Payer Name Payer Address Payer Phone Subscriber Number Group Number Insured Name Patient Relationship to Insured Coverage Start Date Coverage End Date MEDICARE OF JO [address] [place] [address] [id number] RASHAD PERRY Self - patient is the insured [facility] [employer] [facility] ([facility]) [address] [place] [id number] RASHAD PERRY Self - patient is the insured Medical (General) History Medical History History ICD Code gastroesophageal reflux dise ase, upper endoscopy 06/11 mild reflux on biopsy, normal stomach and duodenal biopsies chronic kidney disease hemochromatosis hyperlipidemia colonoscopy 06/11, mild sigm oid diverticulosis, no polyps, previous tubular adenoma 11/2005, 5-10 year followup overactive bladder (OAB) BPH Parkinson's disease (neurologist is Leonila Worley) Surgical History Surgery Date(Month/Year)
--- OUTSIDE RECORDS SUMMARY | 2024-09-19 17:16 | XMS_ITS ---
Author Organization [facility] Address [address] [place] [address] Care Team Providers Care Electronics Technician Apprentice Name Role Phone ODALIS DE LA TORRE Primary Care Provider Bobby Manzo Jr REASON FOR VISIT pathology Encounters Encounter Location Date Provider Diagnosis [facility] [address] [place] [address] 08/01/2024 Bobby Nugent Jr Plan Of Treatment No Information Progress Notes * KRISTEN AGRAWAL LDOB:1955 (69 yo M)Acc No.[id number]:08/01/2024 Patient:?KRISTEN AGRAWAL :1955???Age:69 Y???Sex:Male Address:[address] [place] [address] * true * Date:? Generated for Jesii karen/Ofelia/eTransmitting on:?09/19/2024 05:16 PM EDT
--- OUTSIDE RECORDS SUMMARY | 2024-09-19 17:16 | XMS_ITS | Clinical Summary ---
Author Organization [facility] Address [address] [address] Care Team Providers Care Geological E Logger Name Role Phone Gurpreet ePna NP Primary Care Provider [phone] Allergies Active Allergy Reactions Criticality Noted Date [...] age to complete this topic Insurance MEDICARE [facility] MEDICARE [employer] Care Teams Geological E Logger Relationship Specialty Start Date End Date Gurpreet Pena NP [address] [place] [address] PCP - General Nurse Practitioner 12/08/21
--- OUTSIDE RECORDS SUMMARY | 2024-09-19 17:16 | XMS_ITS ---
Author Organization [facility] Address [address] [place] [address] Care Team Providers Care Obstetrical Nurse Name Role Phone ODALIS DE LA TORRE Primary Care Provider Bobby Manzo Jr REASON FOR VISIT screening Encounters Encounter Location Date Provider Diagnosis [facility] [place] Outpatient [address] [place] [phone] 07/23/2024 Bobby Nugnet Jr Colon cancer screening Z12.11 and FH: colon polyps Z83.719 Assessments Encounter Date Diagnosis (ICD Code) Assessment Notes Treatment Notes Treatment Clinical Notes Section Notes 07/23/2024 Colon cancer screening (ICD-10 - Z12.11) 07/23/2024 FH: colon polyps (ICD-10 - Z83.719) Plan Of Treatment No Information Progress Notes * KRISTEN AGRAWAL LDOB:1955 (69 yo M)Acc No.[id number]:07/23/2024 COLON WITH MAC Patient:?TANJA KRISTEN Samuels Provider:?Bobby Nugent MD :1955???Age:69 Y???Sex:Male Doroteo e:07/23/2024 Address:[address] [place], [place] [id number] Pcp:ODALIS DE LA TORRE Subjective: * Chief Complaints: * ???1. Screening. * Medical History:? Objective: * Vitals:? Assessment: * Assessment: 1.?Colon cancer screening - Z12.11 (Primary)???2.?FH: colon polyps - Z83.719??? Plan: * Treatment: * Procedure Codes:?96247 DIAGN OSTIC COLONOSCOPY, 0529F INTRVL 3+YRS PTS CLNSCP DOCD * * The named appointment provid er may or may not be the originator of this progress note, and it is not deemed complete until electronically signed by the appointment provider. Sign off status: Pending * Provider:?Bobby Nugent MD Date:?0 07/23/2024 Generated for Kalpesh jones/Ofelia/Nahumsmitting on:?09/19/2024 05:15 PM EDT
== END 2024-09-19 14:22 | disposition home or self-care (01) ==
LOC: HO.HSMS 13:50
PROVIDERS: PCP Nurse Practitioner Family; Visit Provider Psychiatry & Neurology Neurology
DX: G20.A1 Parkinson's disease without dyskinesia, without mention of fluctuations (principal)
CPT/HCPCS: 99214

== ENCOUNTER → 2024-09-19 13:49 | Outpatient (BNVA) | payer MEDICARE, OTHER, SELFPAY | PROVIDERS: PCP Nurse Practitioner Family; Visit Provider Psychiatry & Neurology Neurology | DX: G20.A1 Parkinson's disease without dyskinesia, without mention of fluctuations (principal) | CPT/HCPCS: 99212 ==

== ENCOUNTER 2024-11-19 10:56 | Outpatient (REF) | payer MEDICARE, OTHER, SELFPAY ==
--- OUTSIDE RECORDS SUMMARY | 2024-11-19 11:45 | XMS_ITS ---
Author Organization [facility] Address [address] [place] [address] Care Team Providers Care Board Filler Name Role Phone ODALIS DE LA TORRE Primary Care Provider UnavailBobby Lopez Jr Unavailable Allergies Allergen (clinical drug ingredient) Drug/Non Drug [...] Problem Status W/U Status Risk Notes Problem 761419200 GERD without esophagitis (K21.9) Active confirmed Vital Signs Blood pressure systolic 00 mm Hg 06/13/20 24 Blood pressure diastolic 00 mm Hg 024 Height 70 in 06/13/2024 Weight 170 lbs 06/13/2024 BMI 24.39 kg/m2 06/13/2024 Encounters Encounter Location Date Provider Diagnosis [facility] [address] [facility] [address] [place] [address] 06/13/2024 Bobby Nugent Jr Colon cancer screening [...] * KRISTEN PERRY LDOB:1955 (69 yo M)Acc No.[id number]:06/13/2024 Progress Notes Patient:?KRISTEN PERRY Provider:?Bobby Nugent MD :1955???Age:69 Y???Sex:Male Doroteo e:06/13/2024 Address:[address] [place], [place] [phone] Pcp:ODALIS DE LA TORRE Subjective: * Chief [...] Nugent MD Date:?1 08/14/2023 Generated for Jesii karen/Ofelia/eTransmitting on:?11/19/2024 11:45 AM EDT History and Physical Notes * HPI [...]
[2024-11-19 12:04] LABS: Ferritin 37 ng/mL (20-250)
== END 2024-11-19 10:57 | disposition home or self-care (01) ==
LOC: HO.BBR 10:56
PROVIDERS: PCP Nurse Practitioner Family; Visit Provider Internal Medicine
DX: E83.119 Hemochromatosis, unspecified (principal)
CPT/HCPCS: 36415; 82728

== ENCOUNTER 2024-11-22 06:01 | Outpatient (REF) | payer MEDICARE, OTHER, SELFPAY ==
--- OUTSIDE RECORDS SUMMARY | 2024-11-22 06:03 | XMS_ITS ---
Author Organization [facility] Address [address] [place] [address] Care Team Providers Care Motorboat Operator Name Role Phone ODALIS DE LA TORRE Primary Care Provider UnavailBobby Lopez Jr Allergies Allergen (clinical drug ingredient) Drug/Non [...] Problem Status W/U Status Risk Notes Problem 409664893 GERD without esophagitis (K21.9) Active confirmed Vital Signs Blood pressure systolic 00 mm Hg 06/13/20 24 Blood pressure diastolic 00 mm Hg 024 Height 70 in 06/13/2024 Weight 170 lbs 06/13/2024 BMI 24.39 kg/m2 06/13/2024 Encounters Encounter Location Date Provider Diagnosis [facility] [address] [facility] [address] [place] [address] 06/13/2024 Bobby Nugent Jr Colon cancer screening [...] * KRISTEN PERRY LDOB:1955 (69 yo M)Acc No.[id number]:06/13/2024 Progress Notes Patient:?KRISTEN PERRY Provider:?Bobby Nugent MD :1955???Age:69 Y???Sex:Male Doroteo e:06/13/2024 Address:[address] [place], [place] [phone] Pcp:ODALIS DE LA TORRE Subjective: * Chief [...] MD Date:?1 08/14/2023 Generated for Jesii karen/Ofelia/eTransmitting on:?11/22/2024 06:03 AM EDT History and Physical Notes * [...]
[2024-11-22 06:15] LABS: MANUAL DIFF FLAG NO
[2024-11-22 07:07] LABS: Basophils Absolute Auto 0.1 X10*3/uL (0.0-0.2); Basophils Percent Auto 0.9 % (0-2); Eosinophils Absolute Auto 0.1 X10*3/uL (0.0-0.4); Eosinophils Percent Auto 2.6 % (0-4); Hemoglobin 14.8 g/dl (14.0-18.0); Imm Gran Abs Auto 0.01 X10*3/uL (0.00-0.03); Imm Gran Pct Auto 0.2 % (0.0-0.4); Lymphocytes Absolute Auto 1.8 X10*3/uL (1.2-4.9); Mean Corpuscular HGB Conc 34.4 g/dl (31.0-36.0); Mean Corpuscular Hemoglobin 29.3 pg (27.0-33.0); Mean Corpuscular Volume 85.1 fL (80.0-98.0); Mean Platelet Volume 9.6 fL (9.4-12.4); Monocytes Absolute Auto 0.4 X10*3/uL (0.1-1.2); Monocytes Percent Auto 8.3 % (2-11); Neutrophils Absolute Auto 2.9 x10*3/uL (2.0-8.3); Platelet Count 188 X10*3/uL (160-400); Red Blood Count 5.05 X10*6/uL (4.60-5.80); Red Cell Distribution Width 12.6 % (11.0-16.0); White Blood Count 5.3 X10*3/uL (4.8-10.8)
[2024-11-22 07:36] LABS: Appearance Urine Clear; Color Urine Yellow; Glucose Urine UA Negative (Negative); Leukocyte Esterase Urine Negative (Negative); Nitrite Urine Negative (Negative); PH 6.5 (5.0-9.0); UMIC TRIGGER UACC YES; Urine Blood Trace (Negative); Urine Ketones Negative (Negative); Urine Protein Negative (Neg-Trace)
[2024-11-22 07:41] LABS: Bacteria Urine None Seen (None Seen); Hyaline Casts Urine 0-2 /LPF (0-2); RBC Urine 0-2 /HPF (0-2); Squamous Epithelial Cell Urine 0-2 /HPF (0-2); WBC Urine 0-5 /HPF (0-5)
[2024-11-22 07:41] LABS: Alanine Aminotransferase 24 U/L (0-40); Albumin Level 4.4 g/dL (3.5-5.0); Alkaline Phosphatase 45 U/L (39-117); Anion Gap 14 (12-20); Aspartate Amino Transferase 23 U/L (5-37); Bilirubin Total 0.8 mg/dL (0.0-1.0); Blood Urea Nitrogen 23 mg/dL (9-16); Calcium 9.4 mg/dL (8.4-10.2); Carbon Dioxide 24 mmol/L (22-29); Chloride 110 mmol/L (96-108); Cholesterol 171 mg/dL (<200); Estimated Glomerular Filt Rate 56; Glucose Fasting 99 mg/dL (60-99); HDL Cholesterol 46 mg/dL (>40); LDL Cholesterol Calculated 108 mg/dL (<100); Potassium 4.1 mmol/L (3.3-5.1); Sodium 144 mmol/L (135-145); Total Protein 6.9 g/dL (6.5-8.0); Triglycerides 86 mg/dL (<150)
[2024-11-22 07:59] LABS: TSH reflex Free T4 2.48 uIU/mL (0.32-4.0)
== END 2024-11-22 06:02 | disposition home or self-care (01) ==
LOC: HO.LAB 06:01
PROVIDERS: PCP Nurse Practitioner Family; Visit Provider Nurse Practitioner Family
DX: Z00.01 Encounter for general adult medical examination with abnormal findings (principal); Z13.6 Encounter for screening for cardiovascular disorders
CPT/HCPCS: 36415; 80053; 80061; 81001; 84443; 85025

== ENCOUNTER 2025-02-18 10:46 | Outpatient (AMB) | payer MEDICARE, OTHER, SELFPAY ==
--- OUTSIDE RECORDS SUMMARY | 2024-07-23 05:10 | XMS_ITS ---
Author Organization [facility] Address [address] [place] [phone] Care Team Providers Care Garment Fitter Name Role Phone ODALIS DE LA TORRE Primary Care Provider Bobby Manzo Jr REASON FOR VISIT screening Encounters Encounter Location Date Provider Diagnosis [facility] Outpatient [address] [place], [place] [phone] 07/23/2024 Bobby Nugent Jr Colon cancer screening Z12.11 and FH: colon polyps Z83.719 Assessments Encounter Date Diagnosis (ICD Code) Assessment Notes Treatment Notes Treatment Clinical Notes Section Notes 07/23/2024 Colon cancer screening (ICD-10 - Z12.11) 07/23/2024 FH: colon polyps (ICD-10 - Z83.719) Plan Of Treatment No Information Progress Notes * KRISTEN AGRAWAL LDOB:1955 (70 yo M)Acc No.[id number]:07/23/2024 COLON WITH MAC Patient: KRISTEN BARAJAS Provider: Myrna Nugent MD :1955 A ge:69 Y S ex:Male Date:07/23/2024 Address:[address] [place] [address] [id number] Pcp:ODALIS DE LA TORRE Subjective: * Chief [...] 0 07/23/2024 Generated for Kalpesh jones/Ofelia/Jayitting on: 0 02/18/2025 11:38 AM EDT
[2025-02-18 10:52] VITALS: BP 110/74; PULSE 71; RESP 16; TEMP 36.8; O2SAT 95; BMI 24.4
--- NOTE | 2025-02-18 10:52 | MHC.PC.OV ---
Vital Signs 02/18/25 10:52 Height 5 ft 10 in Weight 170 lb BMI 24.4 BP 110/74 Blood Pressure Location Lt brachial Position Sitting Respiration 16 Pulse 71 Pulse Source Pulse Oximeter Temp 98.2 F Temp Source Oral Pulse Oximetry (%) 95 Oxygen Delivery Method Room Air Intake Visit Reasons: GERD Breakdown Person Required: No Accompanied by: Self / Same As Patient Allergies No Known Allergies Allergy (Verified 02/18/25 11:44) Medication List - Last Reconciled 02/18/25 by WILFREDO Melton- atorvastatin 20 mg PO DAILY 90 days cholecalciferol (vitamin D3) 25 mcg PO DAILY finasteride 5 mg PO DAILY pantoprazole 20 mg PO DAILY 30 days tadalafil 5 mg PO DAILY tamsulosin 0.4 mg PO BID vibegron (Gemtesa) 75 mg PO DAILY Tobacco use date assessed: 02/18/25 Fall risk assessment: No Falls in past year Last assessed Fall Risk: 02/18/25 Dental Screening Dental Screen Date: 02/18/25 Did you have a dental visit in the last 12 months?: Yes Did you have a dental problem in the last 6 months where you did not have access to dental care?: No Was dental information given to patient?: Patient has dentist HPI GERD HPI Details Chief Complaint The patient presents with concerns regarding acid reflux management. History of Present Illness The patient is a 70-year-old male presenting with a follow-up for acid reflux. He reports that since being on omeprazole, which is covered by his insurance, his symptoms have worsened, prompting a switch to pantoprazole 20 mg. He denies experiencing chest pain or dyspnea but reports abdominal pain, blood in stool, constipation, and diarrhea. The patient has a history of Parkinson's disease, for which he sees a neurologist. He experiences a tremor in the right upper extremity, which he finds particularly bothersome, though no shuffling gait is observed. He also has a history of iron overload, which will be further evaluated with ferritin and iron studies as part of his blood work. The patient has chronic kidney disease and is under the care of a on site coordinator. Social History Health Maintenance - Colonoscopy performed in June of this year, follow-up with restorer paper and prints pending Review of Systems - Gastrointestinal: Reports abdominal pain, blood in stool, constipation, diarrhea - Neurological: Reports tremor in right upper extremity - Cardiovascular: Denies chest pain - Respiratory: Denies dyspnea Physical Exam General: Cooperative, healthy appearing, comfortable, no acute distress and well developed Orientation: Patient oriented x3 Limitations: No limitations Head: Normal to inspection Ears: Hearing grossly normal bilaterally Nose: Normal external nose present Face and sinus: Normal facial exam Eyes: Appearance normal, both eyes and all related structures Neck: Normal visual inspection and Yes full ROM Respiratory: Normal respiratory effort and able to speak in complete sentences. Clear to auscultation bilaterally Cardiovascular: Regular rate and rhythm. Normal S1 and S2 GI: Normal to inspection. Soft to palpation and nontender Skin: No rashes or lesions noted Neuro: Patient oriented x3. Parkinson's tremor in right upper extremity noted Extremities: Normal to inspection. No shuffling gait observed Results Plan Patient was informed and verbally consented to the use of an ambient scribe for clinic note documentation during this visit. 1. Gastroesophageal Reflux Disease (Gerd) The patient will be switched from omeprazole to pantoprazole 20 mg due to inadequate symptom control. 2. Parkinson's Disease The patient continues to see a neurologist for management of Parkinson's disease, with a focus on managing the tremor in the right upper extremity. 3. Iron Overload Further evaluation with ferritin and iron studies will be conducted to assess the status of iron overload. 4. Chronic Kidney Disease The patient is under the care of a on site coordinator for chronic kidney disease management. Discussion Notes I discussed with the patient the plan to switch from omeprazole to pantoprazole for better management of his acid reflux symptoms. We also reviewed the need for follow-up with his restorer paper and prints regarding his recent colonoscopy and the ongoing management of his Parkinson's disease with his neurologist. Patient Instructions - Start taking pantoprazole 20 mg as prescribed. - Follow up with your restorer paper and prints regarding your colonoscopy results. - Continue seeing your neurologist for Parkinson's disease management. [facility] Medical History Parkinson's disease without dyskinesia Rash Hereditary hemochromatosis OAB (overactive bladder) BPH (benign prostatic hyperplasia) High cholesterol Surgical History History of back surgery History of esophagogastroduodenoscopy (EGD) H/O colonoscopy Family History Father Stomach cancer Paternal Aunt Stomach cancer Paternal Uncle Stomach cancer Mother HTN (hypertension) Heart disease Sister No problems noted. Son No problems noted. Son No problems noted. Social History Household Members: Spouse Housing: House Are you a primary pet care technician to a significant other at home: No Do you presently have visiting nurse or other home services: No Alcohol intake: current Alcohol intake frequency: a few times a month Alcohol type: beer Patient Tobacco Use Status: Never used Tobacco e-Cigarette/Vaping Use: Never Used service: No Current occupational status: retired Cognitive needs: No Hearing needs: No Vision needs: Yes Questionnaire PHQ-9 Over the last 2 weeks, how often have you been bothered by any of the following problems? 1. Little interest or pleasure in doing things: not at all 2. Feeling down, depressed, or hopeless: not at all 3. Trouble falling or staying asleep, or sleeping too much: not at all 4. Feeling tired or having little energy: not at all 5. Poor appetite or overeating: not at all 6. Feeling bad about yourself - or that you are a failure or have let yourself or your family down: not at all 7. Trouble concentrating on things, such as reading the newspaper or watching television: not at all 8. Moving or speaking so slowly that other people could have noticed. Or the opposite - being so fidgety or restless that you have been moving around a lot more than usual: not at all 9. Thoughts that you would be better off or of hurting yourself in some way: not at all Total score: 0 Depression Screening Interpretation: Negative Depression Screening Done: Yes 10400 - PHQ-9 Billing: Yes Source: Developed by Drs. Gio Nowak, Olivia Sanchez, Kervin Meyers and colleagues, with an educational gerardo from [employer]. Thrive Questionnaire Date Thrive assessed: 02/16/25 I am a: Patient What is your living situation today?: I have a steady place to live Within the past 12 months, did the food you bought not last and you didn't have the money to get more?: Never true Within the past 12 months, did you worry whether your food would run out before you got money to buy more?: Never true Do you have trouble paying for medicines?: No Do you have trouble getting transportation to medical appointments?: No Do you have trouble paying your heating and electricity bill?: No Do you have trouble taking care of your child, family member or friend?: No Do you have trouble with day-to-day activities such as bathing, preparing meals, shopping, managing finances, etc.?: No Are you currently unemployed and looking for a job?: No Are you interested in more education?: No Please select the resources that you would like help with: None Currently or been in a relationship where the following occur: No concerns reported THRIVE Score: 0 AUDIT C Alcohol Use Questionnaire (AUDIT-C) 1. How often do you have a drink containing alcohol?: 2-4 times a month 2. How many drinks containing alcohol do you have on a typical day when you are drinking?: 1 or 2 3. How often do you have six or more drinks on one occasion?: Never Total Score: 2 Score Reviewed/Action Taken: Yes LEANN-7 AMB Questionnaire LEANN-7 Date LEANN - 7 assessed: 02/18/25 Feeling nervous, anxious, or on edge: 0 = Not at all Not being able to stop or control worryin = Not at all Worrying too much about different things: 0 = Not at all Trouble relaxin = Not at all Being so restless that it is hard to sit still: 0 = Not at all Becoming easily annoyed or irritable: 0 = Not at all Feeling afraid as if something awful might happen: 0 = Not at all Total LEANN-7 score (0-4 normal; 5-9 mild; 10-14 moderate; 15-21 severe): 0 Source: Developed by Drs. Gio Nowak, Olivia Sanchez, Kervin Meyers and colleagues, with an educational gerardo from [employer]. Physical exam (Primary Care) Vital Signs: Last Vital Signs Temp 98.2 F 02/18/25 10:52 Pulse 71 02/18/25 10:52 Resp 16 02/18/25 10:52 BP 110/74 02/18/25 10:52 Pulse Ox 95 02/18/25 10:52 Oxygen Delivery Method Room Air 02/18/25 10:52 BMI result Body Mass Index 24.4 Tobacco/Smoking Status: Tobacco use Status Tobacco use date assessed 02/18/25 02/18/25 10:57 Patient Tobacco Use Status Never used Tobacco 02/18/25 10:57 e-Cigarette/Vaping Use Never Used 02/18/25 10:57 PHQ-9: PHQ-9 Score PHQ-9: Total score 0 02/18/25 10:57 Depression Screening Interpretation: Negative Thrive Assessment: Date of Thrive Assessment Date Thrive assessed 02/16/25 02/18/25 10:57 Currently or been in a relationship where the following occur: No concerns reported Coding Level of Care Code Est Pt Level 3 (33358) Diagnoses Dyslipidemia E78.5 Screening PSA (prostate specific antigen) Z12.5 Iron overload E83.19 Additional Codes PHQ-9 - 53665 - PHQ-9 Billing: Yes ([id number]) Assessment & Plan Assessment & Plan (1) Dyslipidemia: Code(s): E78.5 - Hyperlipidemia, unspecified Category: Medical (2) Screening PSA (prostate specific antigen): Code(s): Z12.5 - Encounter for screening for malignant neoplasm of prostate Category: Medical (3) Iron overload: Code(s): E83.19 - Other disorders of iron metabolism Category: Medical Plan . Orders: Orders Complete Blood Count Auto Diff Today E78.5 - Hyperlipidemia, unspecified Comprehensive [place]. Panel Fast Today E78.5 - Hyperlipidemia, unspecified Lipid Panel Today E78.5 - Hyperlipidemia, unspecified TSH reflex Free T4 Today E78.5 - Hyperlipidemia, unspecified UA CC w/rflx Micro + Cult Today E78.5 - Hyperlipidemia, unspecified Vitamin D 25-OH Total Today Z12.5 - Encounter for screening for malignant neoplasm of prostate Prostate Specific Antigen Scr Today Z12.5 - Encounter for screening for malignant neoplasm of prostate Ferritin Today E83.19 - Other disorders of iron metabolism IRON PROFILE Today E83.19 - Other disorders of iron metabolism Medications: New pantoprazole 20 mg PO DAILY 30 tabs 3RF 30 days pantoprazole 20 mg PO DAILY 30 days 30 tabs 3RF
--- OUTSIDE RECORDS SUMMARY | 2025-02-18 11:38 | XMS_ITS | Patient Health Record ---
Author Organization [facility] Address [address] [place] [address] Care Team Providers Care Wholesale Parts Salesperson Name Role Phone ODALIS DE LA TORRE Primary Care Provider UnavailBobby Lopez Jr Unavailable Allergies Allergen (clinical drug ingredient) Drug/Non Drug Allergy documented on EMR Reaction Allergy Type Onset Date Status ferrous sulfate Iron no iron due to hemochromatosis Drug Allergy Active Results Component Value Reference Range Notes Pathology Reviewed date:08/01/2024 08:12:45 AM Interpretation: Performing Lab:[facility], [address] [place] [id number] Notes/Report: Reason For Referral No Information Medications Medication [...] DAY Oral for 30 N3281,Unavailab le Active MiraLax (colon prep) 17 GM/SCOOP mixed with Gatorade or Crystal Light Orally begin at 5:00 p.m. the day before the procedure for 1 day 06/13/2024 Active Joint Support Complex Active Myrbetriq 50 MG Orally Acti ve Omeprazole 20 MG TAKE 1 CAPSULE BY MOUTH EVERY DAY for 90 days Active Finasteride Active Vitamin D3 25 MCG (1000 [...] Problem Status W/U Status Risk Notes Problem 351038655 Colon cancer screening (Z12.11) Active confirmed Problem 555554766 Gastroesophageal reflux disease without esophagitis (K21.9) Active confirmed Problem 379458148 GERD without esophagitis (K21.9) Active confirmed Problem 35417243 Iron overload (E83.19) Active confirmed Vital Signs Blood pressure diastolic 00 mm Hg 06/13/2024 Height 70 in 06/13/2024 Blood pressure systolic 00 mm Hg 06/13/2024 Weight 170 lbs 06/13/2024 BMI 24.39 kg/m2 06/13/2024 Encounters Encounter Location Date Provider Diagnosis [facility] [address] [place] [phone] 07/23/2024 Bobby Nugent Jr Colon cancer screening Z12.11 and FH: colon polyps Z83.719 [facility] [address] [place] [phone] 06/13/2024 Bobby Nugent Jr Colon cancer screening Z12.11 and GERD without esophagitis K21.9 [facility] [address] [place] [phone] 08/01/2024 Bobby Nugent Jr [facility] [address] [place] [phone] 01/16/2025 Bobby Nugent Jr Assessments Encounter Date Diagnosis [...] End Date MEDICARE OF [place] [address] [place] [address] [phone] [id number] KRISTEN AGRAWAL Self - patient is the insured [employer] ([employer]) [address] [place] [address] [id number] KRISTEN AGRAWAL Self - patient is the insured Medical [...]
--- OUTSIDE RECORDS SUMMARY | 2025-02-18 11:38 | XMS_ITS | Encounter Summary ---
Author Organization [facility] Address [address] [place] [address] Care Team Providers Care Paper Feeder Name Role Phone Physician, Pcp Unknown Primary Care Provider Samira vailable Encounter Details Date Type Department Care Team (Late st Contact Info) Description 12/06/2024 Lab Requisition [facility] - Main Lab [address] [facility] [place] [address] Jian You MD [address] [facility] [address] [place] [phone] Benign essential microscopic hematuria Social History Tobacco Use Types Packs/Day Years Used Date Smoking Tobacco: Never Assessed Sex and Gender Information Value Date Recorded Sex Assigned at Not on file Legal Sex Male 10:52 AM EST Gender Identity Not on file Sexual Orientation Not on file documented as of this encounter Plan of Treatment Not on file documented as of this encounter Procedures Procedure Name Priority Date/Time Associated Diagnosis Comments AP OUTSIDE CONSULT Routine 12/02/2024 12 :00 AM EDT Benign essential microscopic hematuria documented in this encounter Results * Anatomic pathology outside consult (12/02/2024 12:00 AM EDT) Final Diagnosis Urine, Voided, ([id number]): Negative for high grade urothelial carcinoma. Results of UroVysion fluorescence in situ hybridization (FISH) testing: CEP3: Normal CEP7: Normal CEP17: Normal LSI 9p21: Normal Interpretation: Normal profile Controls stained appropriately. Note: The results are intended as a screening device and should be interpreted in association with other clinical and pathological findings. 12/19/2024 11:49 AM EDT [facility] Clinical Information Benign essential microscopic hematuria R31.1 Urine Cytology/FISH (now) 12/19/2024 11:49 AM EDT [facility] Gross Description A. Urine, Voided, ([id number]): Received one ThinPrep slide for cytology and one ThinPrep slide for UroVysion FISH 12/19/2024 11:49 AM EDT [facility] Disclaimer Unless otherwise specified, all tissue is 10% NB formalin fixed and paraffin embedded. Technical pathology services provided by [facility] at [address] [facility] [address], [place] [address] (CLIA #[id number]/Shruthi Rivera MD, Top And Seat Cover Fitter) 12/19/2024 11:49 AM EDT [facility] Tissue Urine specimen from urethra / Unknown 12/02/2024 12/06/2024 3:31 PM EDT us Jian You MD LAB PATHOLOGY ORDERABLES Final Result [facility] [address] [place] [address], documented in this encounter Visit Diagnoses Diagnosis Benign essential microscopic hematuria documented in this encounter Care Teams Paper Feeder Relationship Specialty Start Date End Date Physician, Pcp Unknown PCP - General 12/06/24 documented as of this encounter
--- OUTSIDE RECORDS SUMMARY | 2025-02-18 11:38 | XMS_ITS | Clinical Summary ---
Author Organization [address] [facility] Address [address] [place] [address] Phone Care Team Providers Care Nursing Education Consultant Name Role Phone Physician, Pcp Unknown Primary Care Provider Samira vailable Encounters Date Type Department Care Team Description 12/06/[address] [facility] - Main Lab [address] [facility] [place] [address] Jian You MD Benign essential microscopic hematuria from Last 3 Months Social History Tobacco Use Types Packs/Day Years Used Date Smoking Tobacco: Never Assessed Sex and Gender Information Value Date Recorded Sex Assigned at Not on file Legal Sex Male 10:52 AM EST Gender Identity Not on file Sexual Orientation Not on file Plan of Treatment Health Maintenance Due Date Last Done Comments DTaP,Tdap,and Td Vaccines (1 - Tdap) 1974 Pneumococcal Vaccine: 50+ Ye ars (1 of 1 - PCV) 2005 Zoster Vaccines (1 of 2) 2005 COVID-19 Vaccine (1 - 2023-2 5 season) 2024 Depression Screening 06/26/2024 Abdominal Aortic Aneurysm (A AA) Screen 12/07/2024 Cholesterol Screening (Lipid Panel) 12/07/2024 Colorectal Cancer Screening: Colonoscopy 12/07/2024 Falls Risk Assessment 12/07/2024 Hepatitis C Screening 12/07/2024 Medicare Annual Wellness Visit 12/07/2024 Social Influencers of Health Screening 12/07/2024 Influenza Vaccine (#1) 2025 RSV Immunization Adult Patie nts (1 - 1-dose 75+ series) 2030 HIB Vaccines Aged Out No longer eligi ble based on patient's age to complete this topic HPV Vaccines Aged Out No longer eligi ble based on patient's age to complete this topic Hepatitis A Vaccines Aged Out No long er eligible based on patient's age to complete this topic Hepatitis B Vaccines Aged Out No long er eligible based on patient's age to complete this topic IPV Vaccines Aged Out No longer eligi ble based on patient's age to complete this topic MMR Vaccines Aged Out No longer eligi ble based on patient's age to complete this topic Meningococcal ACWY Vaccine Aged Out N o longer eligible based on patient's age to complete this topic Meningococcal B Vaccine Aged Out No l onger eligible based on patient's age to complete this topic RSV Immunization Patients Un erma 20 months Aged Out No longer eligible b ased on patient's age to complete this topic Varicella Vaccines Aged Out No longer eligible based on patient's age to complete this topic Procedures Procedure Name Priority Date/Time Associated Diagnosis Comments AP OUTSIDE CONSULT Routine 12/02/2024 12 :00 AM EDT Benign essential microscopic hematuria from Last 3 Months Results * Anatomic pathology outside consult (12/02/2024 12:00 AM EDT) Final Diagnosis Urine, Voided, ([id number]): Negative for high grade urothelial carcinoma. Results of UroVysion fluorescence in situ hybridization (FISH) testing: CEP3: Normal CEP7: Normal CEP17: Normal LSI 9p21: Normal Interpretation: Normal profile Controls stained appropriately. Note: The results are intended as a screening device and should be interpreted in association with other clinical and pathological findings. 12/19/2024 11:49 AM EDT [facility] Clinical Information Benign essential microscopic hematuria R31.1 Urine Cytology/FISH (now) 12/19/2024 11:49 AM EDT [facility] Gross Description A. Urine, Voided, ([id number]): Received one ThinPrep slide for cytology and one ThinPrep slide for UroVysion FISH 12/19/2024 11:49 AM EDT [facility] Disclaimer Unless otherwise specified, all tissue is 10% NB formalin fixed and paraffin embedded. Technical pathology services provided by [facility] at [address], [place] [address] (CLIA #[id number]/Shruthi Rivera MD, Director Law Enforcement) 12/19/2024 11:49 AM EDT [facility] Tissue Urine specimen from urethra / Unknown 12/02/2024 12/06/2024 3:31 PM EDT us Jian You MD LAB PATHOLOGY ORDERABLES Final Result [facility] [address] [place] [address], [place] [phone] from Last 3 Months Insurance MEDICARE [facility] Care Teams Nursing Education Consultant Relationship Specialty Start Date End Date Physician, Pcp Unknown PCP - General 12/06/24
--- OUTSIDE RECORDS SUMMARY | 2025-02-18 11:38 | XMS_ITS | Clinical Summary ---
Author Organization [facility] Address [address] [address] Care Team Providers Care User Experience Analyst Name Role Phone Gurpreet Pena NP Primary Care Provider [phone] Allergies Active Allergy Reactions Criticality Noted Date [...] Due Date Last Done Comments Pneumococcal Vaccine: 50+ Ye ars (1 of 2 - PCV) 1974 Colorectal Cancer Screening: Annual FOBT 01/29/2004 Colorectal Cancer Screening: Colonoscopy 01/29/2004 Colorectal Cancer Screening: Sigmoidoscopy 01/29/2004 Influenza Vaccine (#1) 2025 Hepatitis B Vaccine Aged Out No longe r eligible based on patient's age to complete this topic Insurance Medicare [facility] Medicare [employer] Care Teams User Experience Analyst Relationship Specialty Start Date End Date Gurpreet Pena NP [address] [place] [address] PCP - General Nurse Practitioner 12/08/21
== END 2025-02-18 11:49 | disposition home or self-care (01) ==
PROVIDERS: PCP Nurse Practitioner Family; Visit Provider Nurse Practitioner Family
DX: E78.5 Hyperlipidemia, unspecified (principal); Z12.5 Encounter for screening for malignant neoplasm of prostate; E83.19 Other disorders of iron metabolism

== ENCOUNTER → 2025-02-18 10:46 | Outpatient (BNVA) | payer MEDICARE, OTHER, SELFPAY | PROVIDERS: PCP Nurse Practitioner Family; Visit Provider Nurse Practitioner Family | DX: E78.5 Hyperlipidemia, unspecified (principal); E83.19 Other disorders of iron metabolism; K21.9 Gastro-esophageal reflux disease without esophagitis | CPT/HCPCS: 96127; 99212 ==

== ENCOUNTER 2025-03-26 08:51 | Outpatient (AMB) | payer MEDICARE, OTHER, SELFPAY ==
--- OUTSIDE RECORDS SUMMARY | 2024-07-23 05:10 | XMS_ITS ---
Author Organization [facility] Address [address] [place] [phone] Care Team Providers Care Fire Hose Curer Name Role Phone ODALIS DE LA TORRE Primary Care Provider Bobby Manzo Jr REASON FOR VISIT screening Encounters Encounter Location Date Provider Diagnosis [facility] [place] [address] [place], [place] [phone] 07/23/2024 Bobby Nugent Jr Colon cancer screening Z12.11 and FH: colon polyps Z83.719 Assessments Encounter Date Diagnosis (ICD Code) Assessment Notes Treatment Notes Treatment Clinical Notes Section Notes 07/23/2024 Colon cancer screening (ICD-10 - Z12.11) 07/23/2024 FH: colon polyps (ICD-10 - Z83.719) Plan Of Treatment No Information Progress Notes * KRISTEN AGRAWAL LDOB:1955 (70 yo M)Acc No.[id number]:07/23/2024 COLON WITH MAC Patient: KRISTEN BARAJAS Provider: Myrna Nugent MD :1955 A ge:69 Y S ex:Male Date:07/23/2024 Address:[address] [place] [address] [id number] Pcp:ODALIS DE LA TORRE Subjective: * Chief [...] 0 07/23/2024 Generated for Kalpesh jones/Ofelia/Jayitting on: 09:29 AM EDT
--- NOTE | 2025-03-26 08:53 | A.OFFVIS_ITS ---
Vital Signs 03/26/25 08:55 Height 5 ft 10 in Weight 169 lb 8 oz BMI 24.3 BP 128/72 Blood Pressure Location Rt brachial Position Sitting Pulse 86 Pulse Source Pulse Oximeter Pulse Oximetry (%) 98 Oxygen Delivery Method Room Air Intake Visit Reasons: 6 mo follow up Intake Note: Follow up Parkinson's disease without dyskinesia, without mention of fluctuations [employer] Leak Tester Required: No Accompanied by: Self / Same As Patient Allergies No Known Allergies Allergy (Verified 03/26/25 08:54) Medication List - Last Reconciled 03/26/25 by Leonila Worley MD atorvastatin 20 mg PO DAILY 90 days cholecalciferol (vitamin D3) 25 mcg PO DAILY finasteride 5 mg PO DAILY pantoprazole 20 mg PO DAILY 30 days tadalafil 5 mg PO DAILY tamsulosin 0.4 mg PO BID vibegron (Gemtesa) 75 mg PO DAILY HPI Comments Details: 70y/o right handed male comes for follow up regarding parkinsons.His USMAN scan was negative .No change since his last visit 6 mths ago . He denies any worsening .His symptoms fluctuate. he exercises regularly No hallucinations or cognitive issues . Bowel movements are stable History from initial visit-He starting noticing in his right hand about 3 years ago. The tremors are mostly at rest and has worsened since then . he was seen by about 2 years and he was diagnosed with parkinsons. Cognition- normal Mood- normal Sleep- trouble going back to sleep when he wakes up at 5 AM . No vivid dreams or acting out dreams. He is motivated. Speech- softer No drooling Handwriting- no change as per patient No stiffness No difficulty with utensils, dressing, showering No difficulty changing positions in bed. Gait normal No falls No dizziness No hallucinations Normal bowel movements. No exposure to pesticides, well water, chemicals No head injury [facility] Medical History Parkinson's disease without dyskinesia Rash Hereditary hemochromatosis OAB (overactive bladder) BPH (benign prostatic hyperplasia) High cholesterol Surgical History History of back surgery History of esophagogastroduodenoscopy (EGD) H/O colonoscopy Family History Father Stomach cancer Paternal Aunt Stomach cancer Paternal Uncle Stomach cancer Mother HTN (hypertension) Heart disease Sister No problems noted. Son No problems noted. Son No problems noted. Social History Household Members: Spouse Housing: House Are you a primary acute care nurse to a significant other at home: No Do you presently have visiting nurse or other home services: No Alcohol intake: current Alcohol intake frequency: a few times a month Alcohol type: beer Patient Tobacco Use Status: Never used Tobacco e-Cigarette/Vaping Use: Never Used service: No Current occupational status: retired Cognitive needs: No Hearing needs: No Vision needs: Yes Physical Exam Vital Signs: Last Vital Signs Pulse 86 03/26/25 08:55 BP 128/72 03/26/25 08:55 Pulse Ox 98 03/26/25 08:55 Oxygen Delivery Method Room Air 03/26/25 08:55 BMI result Body Mass Index 24.3 Const General: cooperative, healthy appearing, comfortable and no acute distress Nutritional Appearance: average body habitus Orientation/consciousness: patient oriented x3 Limitations: no limitations Eyes Pupils: Equal, round and reactive pupils present Neuro Other: very mild decreased blink facial expression, stoop, hypophonia right UE intermittent rest tremors moderate amplitude gait - decreased arm swing right UE Cog wheel rigidty 1 = right UE FFM and foot taps normal General: patient oriented x3, moves all extremities and no focal motor deficits Cranial nerves: Yes Facial sensation intact/muscles of mastication intact, Yes Equal, round and reactive pupils present, Yes Nystagmus not present, Yes Normal facial strength present and Yes Midline tongue present Cognition (Neuro): normal cognition Gait exam (Neuro): Other gait observations present (normal stride, mild stoop, decreased right arm swing) Motor exam (neuro): 5/5 motor strength present throughout Coordination: [id number] test normal Assessment & Plan Assessment & Plan (1) Parkinson's disease without dyskinesia: Code(s): G20.A1 - Parkinson's disease without dyskinesia, without mention of fluctuations Category: Medical Qualifiers: Fluctuating manifestations: without fluctuating manifestations Qualified Code(s): G20.A1 - Parkinson's disease without dyskinesia, without mention of fluctuations Plan Discussed various management options Continue exercises. MRI brain repeat USMAN scan Orders: Orders DaTscan Today G20 - Parkinson's disease MR head/brain wo con Today G20 - Parkinson's disease Coding Level of Care Code Est Pt Level 4 (22657) Diagnoses Parkinson's disease without dyskinesia or fluctuating manifestations G20.A1 Fluctuating manifestations: without fluctuating manifestations
[2025-03-26 08:55] VITALS: BP 128/72; PULSE 86; O2SAT 98; BMI 24.3
--- OUTSIDE RECORDS SUMMARY | 2025-03-26 09:30 | XMS_ITS | Clinical Summary ---
Author Organization [facility] Facility Address [address] [address] Care Team Providers Care Call Or Contact Centre Manager Name Role Phone Gurpreet Pena NP Primary Care Provider [phone] Allergies Active Allergy Reactions Criticality Noted Date [...] age to complete this topic Insurance Medicare [facility] Medicare Unicare Care Teams Call Or Contact Centre Manager Relationship Specialty Start Date End Date Gurpreet Pena NP [address] [place] [address] PCP - General Nurse Practitioner 12/08/21
--- OUTSIDE RECORDS SUMMARY | 2025-03-26 09:30 | XMS_ITS | Clinical Summary ---
Author Organization [address] Address [address] [place] [address] Phone Care Team Providers Care Parachute Rigger Name Role Phone Physician, Pcp Unknown Primary Care Provider Samira vailable Social History Tobacco Use Types Packs/Day Years Used Date Smoking Tobacco: Never Assessed Sex and Gender Information Value Date Recorded Sex Assigned at Not on file Legal Sex Male 10:52 AM EST Gender Identity Not on file Sexual Orientation Not on file Plan of Treatment Health Maintenance Due Date Last Done Comments Colorectal Cancer Screening: Colonoscopy 1955 DTaP,Tdap,and Td Vaccines (1 - Tdap) 1974 Pneumococcal Vaccine: 50+ Ye ars (1 of 1 - PCV) 2005 Zoster Vaccines (1 of 2) 2005 Depression Screening 06/26/2024 Abdominal Aortic Aneurysm (A AA) Screen 12/07/2024 Cholesterol Screening (Lipid Panel) 12/07/2024 Falls Risk Assessment 12/07/2024 Hepatitis C Screening 12/07/2024 Medicare Annual Wellness Visit 12/07/2024 Social Influencers of Health Screening 12/07/2024 COVID-19 Vaccine ( - 2023-2 5 season) 2025 Influenza Vaccine (#1) 2025 RSV Immunization Adult [...] age to complete this topic Insurance MEDICARE [facility] Care Teams Parachute Rigger Relationship Specialty Start Date End Date Physician, Pcp Unknown PCP - General 12/06/24
--- OUTSIDE RECORDS SUMMARY | 2025-03-26 09:30 | XMS_ITS | Encounter Summary ---
Author Organization [facility] Address [address] [place] [address] Care Team Providers Care Nursing Technician Name Role Phone Physician, Pcp Unknown Primary Care Provider Samira vailable Encounter Details Date Type Department Care Team (Late st Contact Info) Description 12/06/[address] [facility] - Main Lab [address] [facility] [place] [address] Jian You MD [address] [facility] [address] [place] [phone] Benign essential microscopic hematuria Social History Tobacco [...] 12:00 AM EDT) Final Diagnosis Urine, Voided, ([id number]): Negative for high grade urothelial carcinoma. Results of UroVysion fluorescence in situ hybridization (FISH) testing: CEP3: Normal CEP7: Normal CEP17: Normal LSI 9p21: Normal Interpretation: Normal profile Controls stained appropriately. Note: The results are intended as a screening device and should be interpreted in association with other clinical and pathological findings. 12/19/2024 11:49 AM EDT [facility] Clinical Information Benign essential microscopic hematuria R31.1 Urine Cytology/FISH (now) 12/19/2024 11:49 AM EDT [facility] Gross Description A. Urine, Voided, ([id number]): Received one ThinPrep slide for cytology and one ThinPrep slide for UroVysion FISH 12/19/2024 11:49 AM EDT [facility] Disclaimer Unless otherwise specified, all tissue is 10% NB formalin fixed and paraffin embedded. Technical pathology services provided by [facility] at [address] [facility] [address], [place] [address] (CLIA #[id number]/Shruthi Rivera MD, Office Automation Technician) 12/19/2024 11:49 AM EDT [facility] Tissue Urine specimen from urethra / Unknown 12/02/2024 12/06/2024 3:31 PM EDT us Jian You MD LAB PATHOLOGY ORDERABLES Final Result [facility] [address] [place] [address], documented in this encounter Visit Diagnoses Diagnosis Benign essential microscopic hematuria documented in this encounter Care Teams Nursing Technician Relationship Specialty Start Date End Date Physician, Pcp Unknown PCP - General 12/06/24 documented as of this encounter
--- OUTSIDE RECORDS SUMMARY | 2025-03-26 09:30 | XMS_ITS | Patient Health Record ---
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 Drug Allergy Active Results Component Value Reference Range Notes Pathology Reviewed date:08/01/2024 08:12:45 AM Interpretation: Performing Lab:[facility], [address] [place] [id number] Notes/Report: Reason For Referral No Information Medications Medication SIG (Take, Route, Frequency, Duration) Notes Start Date End Date Status Atorvastatin Calcium 20 MG 1 tablet Orally Once a day Active Tamsulosin HCl 0.4 MG 2 capsule Orally Once a day Active Pantoprazole Sodium 40 MG 1 tablet 1/2 to 1 hour before morning meal Orally Once a day for 30 days 03/25/2025 Active Tadalafil 5 MG TAKE 1 TABLET [...] Problem Status W/U Status Risk Notes Problem 908930660 Colon cancer screening (Z12.11) Active confirmed Problem 452053956 Gastroesophageal reflux disease without esophagitis (K21.9) Active confirmed Problem 339069385 GERD without esophagitis (K21.9) Active confirmed Problem 60508964 Iron overload (E83.19) Active confirmed Vital Signs Blood pressure diastolic 00 mm Hg 06/13/2024 Height 70 in 06/13/2024 Blood pressure systolic 00 mm Hg 06/13/2024 Weight 170 lbs 06/13/2024 BMI 24.39 kg/m2 06/13/2024 Encounters Encounter Location Date Provider Diagnosis [facility] Outpatient [address] [place] [id number] 07/23/2024 Bobby Nugent Jr Colon cancer screening Z12.11 and FH: colon polyps Z83.719 [facility] [address] [place] [phone] 06/13/2024 Bobby Nugent Jr Colon cancer screening Z12.11 and GERD without esophagitis K21.9 [facility] [address] [place] [phone] 03/24/2025 Bobby Nugent Jr [facility] [address] [place] [phone] 08/01/2024 Bobby Nugent Jr [facility] [address] [place] [phone] 01/16/2025 Bobby Nugent Jr [facility] [address] [place] [phone] 03/24/2025 Bobby Nugent Jr Assessments Encounter Date Diagnosis [...] End Date MEDICARE OF [place] [address] [facility] [place] [id number] KRISTEN AGRAWAL Self - patient is the insured [employer] ([place]) [address] [place] [address] [phone] [id number] KRISTEN AGRAWAL Self - patient is the [...]
== END 2025-03-26 09:45 | disposition home or self-care (01) ==
LOC: HO.HSMS 08:52
PROVIDERS: PCP Nurse Practitioner Family; Visit Provider Psychiatry & Neurology Neurology
DX: G20.A1 Parkinson's disease without dyskinesia, without mention of fluctuations (principal)
CPT/HCPCS: 99214

== ENCOUNTER → 2025-03-26 08:51 | Outpatient (BNVA) | payer MEDICARE, OTHER, SELFPAY | PROVIDERS: PCP Nurse Practitioner Family; Visit Provider Psychiatry & Neurology Neurology | DX: G20.A1 Parkinson's disease without dyskinesia, without mention of fluctuations (principal) | CPT/HCPCS: 99212 ==

== ENCOUNTER 2025-04-14 10:57 | Outpatient (REF) | payer MEDICARE, OTHER, SELFPAY ==
--- OUTSIDE RECORDS SUMMARY | 2024-07-23 05:10 | XMS_ITS ---
Author Organization [facility] Address [address] [place] [address] Care Team Providers Care Weblogic Administrator Name Role Phone ODALIS DE LA TORRE Primary Care Provider Bobby Manzo Jr [phone] REASON FOR VISIT screening Encounters Encounter Location Date Provider Diagnosis [facility] Outpatient [address] [place], [place] [phone] 07/23/2024 Bobby Nugent Jr Colon cancer screening Z12.11 and FH: colon polyps Z83.719 Assessments Encounter Date Diagnosis (ICD Code) Assessment Notes Treatment Notes Treatment Clinical Notes Section Notes 07/23/2024 Colon cancer screening (ICD-10 - Z12.11) 07/23/2024 FH: colon polyps (ICD-10 - Z83.719) Plan Of Treatment Next Appt Details Provider Name:Bobyb geronimo Jr, 04/21/2025 02:35:00 PM, [address], [address], [place], [address], Progress Notes * KRISTEN AGRAWAL LDOB:1955 (70 yo M)Acc No.[id number]:07/23/2024 COLON WITH MAC Patient: KRISTEN BARAJAS Abril Provider: Myrna Nugent MD :1955 A ge:69 Y S ex:Male Date:07/23/2024 Address:[address] [place], [place] [phone] Pcp:ODALIS DE LA TORRE Subjective: * Chief [...] 0 07/23/2024 Generated for Kalpesh jones/Ofelia/Jayitting on: 01:15 PM EDT
--- OUTSIDE RECORDS SUMMARY | 2025-04-14 13:15 | XMS_ITS | Encounter Summary ---
Author Organization [facility] Address [address] [place] [address] Care Team Providers Care Emergency Response Officer Name Role Phone Physician, Pcp Unknown Primary Care Provider Samira vailable Encounter Details Date Type Department Care Team (Late st Contact Info) Description 12/06/2024 Lab Requisition [facility] - Main Lab [address] [facility] [place] [address] Jian You MD [address] [place] [phone] Benign essential microscopic hematuria Social History Tobacco [...] 12:00 AM EDT) Final Diagnosis Urine, Voided, ([id number]): Negative for high grade urothelial carcinoma. Results of UroVysion fluorescence in situ hybridization (FISH) testing: CEP3: Normal CEP7: Normal CEP17: Normal LSI 9p21: Normal Interpretation: Normal profile Controls stained appropriately. Note: The results are intended as a screening device and should be interpreted in association with other clinical and pathological findings. 12/19/2024 11:49 AM EDT [facility] LAB Clinical Information Benign essential microscopic hematuria R31.1 Urine Cytology/FISH (now) 12/19/2024 11:49 AM EDT [facility] Gross Description A. Urine, Voided, ([id number]): Received one ThinPrep slide for cytology and one ThinPrep slide for UroVysion FISH 12/19/2024 11:49 AM EDT [facility] Disclaimer Unless otherwise specified, all tissue is 10% NB formalin fixed and paraffin embedded. Technical pathology services provided by [facility] at [address] [facility] [address], [place] [address] (CLIA #[id number]/Shruthi Rivera MD, Medical Technicians) 12/19/2024 11:49 AM EDT [facility] Tissue Urine specimen from urethra / Unknown 12/02/2024 12/06/2024 3:31 PM EDT us Jian You MD LAB PATHOLOGY ORDERABLES Final Result [facility] [address] [place] [address], documented in this encounter Visit Diagnoses Diagnosis Benign essential microscopic hematuria documented in this encounter Care Teams Emergency Response Officer Relationship Specialty Start Date End Date Physician, Pcp Unknown PCP - General 12/06/24 documented as of this encounter
--- OUTSIDE RECORDS SUMMARY | 2025-04-14 13:15 | XMS_ITS | Patient Health Record ---
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 Drug Allergy Active Results Component Value Reference Range Notes Pathology Reviewed date:08/01/2024 08:12:45 AM Interpretation: Performing Lab:[facility], [address] [place] [phone] Notes/Report: Reason For Referral No Information Medications Medication SIG (Take, Route, Frequency, Duration) Notes Start Date End Date Status Atorvastatin Calcium 20 MG 1 tablet Orally Once a day Active Tamsulosin HCl 0.4 MG 2 capsule Orally Once a day Active Pantoprazole Sodium 40 MG 1 tablet 1/2 to 1 hour before morning meal Orally Once a day; Duration: 30 days 03/25/2025 Active Tadalafil 5 MG TAKE 1 TABLET BY MOUTH ONCE DAILY Oral; Duration: 90 Active Gemtesa 75 MG TAKE 1 TABLET BY MOUTH ONCE A DAY Oral; Duration: 30 N328,Unavailab le Active MiraLax (colon prep) 17 GM/SCOOP mixed with Gatorade or Crystal Light Orally begin at 5:00 p.m. the day before the procedure; Duration: 1 day 06/13/2024 Active Joint Support Complex [...] Problem Status W/U Status Risk Notes Problem Colon cancer screening (138369721) Colon cancer screening (Z12.11) Active confirmed Problem Gastroesophageal reflux disease without esophagitis (645879338) Gastroesophageal reflux disease without esophagitis (K21.9) Active confirmed Problem Gastroesophageal reflux disease (117992491) GERD without esophagitis (K21.9) Active confirmed Problem Iron overload (79958626) Iron overload (E83.19) Active confirmed Vital Signs Blood pressure diastolic 00 mm Hg 06/13/2024 Height 70 in 06/13/2024 Blood pressure systolic 00 mm Hg 06/13/2024 Weight 170 lbs 06/13/2024 BMI 24.39 kg/m2 06/13/2024 Encounters Encounter Location Date Provider Diagnosis [facility] Out[place] [address] [place] [id number] 07/23/2024 Bobby Nugent Jr Colon cancer screening Z12.11 and FH: colon polyps Z83.719 [facility] [address] [place] [phone] 06/13/2024 Bobby Nugent Jr Colon cancer screening Z12.11 and GERD without esophagitis K21.9 [facility] [address] [place] [phone] 08/01/2024 Bobby Nugent Jr [facility] [address] [place] [phone] 01/16/2025 Bobby Nugent Jr [facility] [address] [place] [phone] 03/24/2025 Bobby Nugent Jr [facility] [address] [place] [phone] 03/24/2025 Bobbyriver Nugent Jr Assessments Encounter Date Diagnosis (ICD [...] Next Appt Details Provider Name:Bobby geronimo Jr, 04/21/2025 02:35:00 PM, [address] [place] [address], [address], [place], [address], Insurance Providers Payer Name Payer Address Payer Phone Subscriber Number Group Number Insured Name Patient Relationship to Insured Coverage Start Date Coverage End Date MEDICARE OF [place] [address] [place] [address] [id number] KRISTEN AGRAWAL Self - patient is the insured [email or web address] ([place]) [address] [place] [address] [phone] [id number] KRISTEN AGRAWAL Self - patient is the [...]
--- OUTSIDE RECORDS SUMMARY | 2025-04-14 13:15 | XMS_ITS | Clinical Summary ---
Author Organization [address] Address [address] [place] [address] Phone Care Team Providers Care Kaiako Kura Tuarua Name Role Phone Physician, Pcp Unknown Primary [...] age to complete this topic Insurance MEDICARE [facility] Care Teams Kaiako Kura Tuarua Relationship Specialty Start Date End Date Physician, Pcp Unknown PCP - General 12/06/24
--- OUTSIDE RECORDS SUMMARY | 2025-04-14 13:16 | XMS_ITS | Clinical Summary ---
Author Organization [facility] Facility Address [address] [address] Care Team Providers Care Manager Investigations Name Role Phone Gurpreet Pena NP Primary Care Provider [phone] Allergies Active Allergy Reactions Criticality Noted Date [...] to complete this topic Insurance Medicare [facility] Medicare Unicare Care Teams Manager Investigations Relationship Specialty Start Date End Date Gurpreet Pena NP [address] [place] [address] PCP - General Nurse Practitioner 12/08/21
== END 2025-04-14 10:58 | disposition home or self-care (01) ==
LOC: HO.BBR 10:57
PROVIDERS: PCP Nurse Practitioner Family; Visit Provider Internal Medicine
DX: Z13.89 Encounter for screening for other disorder (principal)

== ENCOUNTER 2025-04-23 07:30 | Outpatient (REF) | payer MEDICARE, OTHER, SELFPAY ==
--- OUTSIDE RECORDS SUMMARY | 2024-07-23 05:10 | XMS_ITS ---
Author Organization [facility] Address [address] [place] [phone] Care Team Providers Care Dry Color Tester Name Role Phone ODALIS DE LA TORRE Primary Care Provider Bobby Manzo Jr REASON FOR VISIT screening Encounters Encounter Location Date Provider Diagnosis [facility] [place] [address] [place] [phone] 07/23/2024 Bobby Nugent Jr Colon cancer screening Z12.11 and FH: colon polyps Z83.719 Assessments Encounter Date Diagnosis (ICD Code) Assessment Notes Treatment Notes Treatment Clinical Notes Section Notes 07/23/2024 Colon cancer screening (ICD-10 - Z12.11) 07/23/2024 FH: colon polyps (ICD-10 - Z83.719) Plan Of Treatment Next Appt Details Provider Name:Bobby geronimo Jr, 04/25/2025 01:00:00 PM, [address] [place] [address], [phone], Progress Notes * KRISTEN AGRAWAL LDOB:1955 (70 yo M)Acc No.[id number]:07/23/2024 COLON WITH MAC Patient: KRISTEN BARAJAS Abril Provider: Myrna Nugent MD :1955 A ge:69 Y S ex:Male Date:07/23/2024 Address:[address] [place], [place] [phone] Pcp:ODALIS DE LA TORRE Subjective: * Chief Complaints: * 1 . Screening. * Medical History: Objective: * Vitals: Assessment: * Assessment: 1. C olon cancer screening - Z12.11 (Primary) 2 . F H: colon polyps - Z83.719 Plan: * Treatment: * Procedure Codes: 4 5378 DIAGNOSTIC COLONOSCOPY, 0529F INTRVL 3+YRS PTS CLNSCP DOCD * * The named appointment provid er may or may not be the originator of this progress note, and it is not deemed complete until electronically signed by the appointment provider. Sign off status: Pending * Provider: Myrna Nugent MD Date: 0 07/23/2024 Generated for Kalpesh jones/Ofelia/Nahumsmitting on: 07:32 AM EDT
--- OUTSIDE RECORDS SUMMARY | 2025-04-21 10:15 | XMS_ITS ---
Author Organization [facility] Address [address] [place] [phone] Care Team Providers Care Appraisal Technician Name Role Phone ODALIS DE LA TORRE Primary Care Provider UnavailBobby Lopez Jr Unavailable Allergies Allergen (clinical drug ingredient) Drug/Non Drug Allergy documented on EMR Reaction Allergy Type Onset Date Status ferrous sulfate Iron no iron due to hemochromatosis Drug Allergy Active REASON FOR VISIT Patient presents today for gerd Medications Medication SIG (Take, Route, Frequency, Duration) Notes Start Date End Date Status Tadalafil 5 MG TAKE 1 TABLET BY MOUTH ONCE DAILY Oral; Duration: Active Pantoprazole Sodium 40 MG 1 tablet 1/2 to 1 hour before morning meal Orally Once a day; Duration: 30 days 03/25/2025 Active MiraLax (colon prep) 17 GM/SCOOP mixed with Gatorade or Crystal Light Orally begin at 5:00 p.m. the day before the procedure; Duration: 1 day 06/13/2024 Active Tamsulosin HCl 0.4 MG 2 capsule Orally Once a day Active Atorvastatin Calcium 20 MG 1 tablet Orally Once a day Active Gemtesa 75 MG TAKE 1 TABLET BY MOUTH ONCE A DAY Oral; Duration: ,Unavailab le Active Vitamin D3 25 MCG (1000 UT) Orally Once a day Active Myrbetriq 50 MG Orally Acti ve Finasteride Active Joint Support Complex Active Social History Tobacco Use: Social History [...] Never (0 point) Points 2 Interpretation Negative Vital Signs Temperature 97.3 degrees Fahrenheit 04/21/20 25 Blood pressure systolic 001 mm Hg 04/21/20 25 Blood pressure diastolic 01 mm Hg 025 Height 70 in 04/21/2025 Weight 173.0 lbs 04/21/2025 BMI 24.82 kg/m2 04/21/2025 Encounters Encounter Location Date Provider Diagnosis [facility] [address] [place] [address] 04/21/2025 Bobby Nugent Jr GERD without esophagitis K21.9 ; Colon cancer screening Z12.11 and Iron overload E83.19 Assessments Encounter Date Diagnosis (ICD Code) Assessment Notes Treatment Notes Treatment Clinical Notes Section Notes 04/21/2025 GERD without esophagitis (ICD-10 - K21.9) We discussed gastroesophageal reflux disease today. We discussed diet, lifestyle modifications, and weight management. He will continue pantoprazole. Because of his persistent symptoms despite PPI therapy, he will undergo upper endoscopy. We discussed risks and benefits of the procedure today. He understands these and agrees to proceed. This will be scheduled at his convenience. 04/21/2025 Colon cancer screening (ICD-10 - Z12.11) We discussed gastroesophageal reflux disease today. We discussed diet, lifestyle modifications, and weight management. He will continue pantoprazole. Because of his persistent symptoms despite PPI therapy, he will undergo upper endoscopy. We discussed risks and benefits of the procedure today. He understands these and agrees to proceed. This will be scheduled at his convenience. 04/21/2025 Iron overload (ICD-10 - E83.19) We discussed gastroesophageal reflux disease today. We discussed diet, lifestyle modifications, and weight management. He will continue pantoprazole. Because of his persistent symptoms despite PPI therapy, he will undergo upper endoscopy. We discussed risks and benefits of the procedure today. He understands these and agrees to proceed. This will be scheduled at his convenience. Plan Of Treatment Future Test Test Name Order Date UPPER GI ENDOSCOPY 04/21/2025 Next Appt Details Follow Up: 1 Year, Reason: Provider Name:Bobby Armstrong grazyna Lucas, 04/25/2025 01:00:00 PM, [address] [place] [address] , [place], [place], [phone], Progress Notes * KRISTEN AGRAWAL LDOB:1955 (70 yo M)Acc No.[id number]:04/21/2025 Progress Notes Patient: KRISTEN BARAJAS Provider: Myrna Nugent MD :1955 A ge:70 Y S ex:Male Date:04/21/2025 Address:[address] [place], [place] [id number] Pcp:ODALIS DE LA TORRE Subjective: * Chief Complaints: * 1 . Patient presents today for gerd. * HPI: N ew symptom(s): The patient is a pleasant 70-year-old man seen today in follow-up of gastroesophageal reflux disease and colon cancer screening. He was last seen in May 2024. Colonoscopy in 2024 showed 2 tubular adenomas. We reviewed this today. He reports symptomatic reflux over the last several months despite varying PPI therapy. He was initially treated with omeprazole, which was switched to pantoprazole in January. This was increased to 40 mg at that time. He has no dysphagia, hematemesis, or melena. Weight and appetite have been stable. Symptoms have improved somewhat since the higher dose of a PPI. He does have a family history of stomach cancer and is concerned about this. * Medical History: G astroesophageal reflux disease, upper endoscopy 06/11 mild reflux on biopsy, normal stomach and duodenal biopsies, Chronic kidney disease, Hemochromatosis, Hyperlipidemia, Colonoscopy 07/20, tubular adenoma x 2, colon recall 5 years., overactive bladder (OAB), BPH, Tremor, Parkinson's disease versus essential tremor.. * Family History: F ather: , stomach cancer. M other: alive, diagnosed with HTN (hypertension). Father had stomach cancer. Sister has had colon polyps Denies family hx of colon cancer or liver ds. * Social History: T obacco Use: T obacco Use/Smoking P atient is a n onsmoker. D rugs/Alcohol: A lcohol Screen D id you have a drink containing alcohol in the past year? Y es, H ow often did you have a drink containing alcohol in the past year? 2 to 4 times a month (2 points), H ow many drinks did you have on a typical day when you were drinking in the past year??1 or 2 drinks (0 point), H ow often did you have 6 or more drinks on one occasion in the past year? N ever (0 point), P oints 2 , I nterpretation N egative. M iscellaneous: M arital status: . Occupation: retired. * Medications: T aking Tamsulosin HCl 0.4 MG Capsule Extended Release 24 Hour 2 capsule Orally Once a day , Taking Atorvastatin Calcium 20 MG Tablet 1 tablet Orally Once a day , Taking Vitamin D3 25 MCG (1000 UT) Tablet Orally Once a day , Taking Finasteride , Taking Myrbetriq 50 MG Tablet Extended Release 24 Hour Orally , Taking Joint Support Complex , Taking Gemtesa 75 MG Tablet TAKE 1 TABLET BY MOUTH ONCE A DAY Oral , Notes to Pharmacist: [id number],Unavailable, Taking Tadalafil 5 MG Tablet TAKE 1 TABLET BY MOUTH ONCE DAILY Oral , Taking MiraLax (colon prep) 17 GM/SCOOP Powder mixed with Gatorade or Crystal Light Orally begin at 5:00 p.m. the day before the procedure , Taking Pantoprazole Sodium 40 MG Tablet Delayed Release 1 tablet 1/2 to 1 hour before morning meal Orally Once a day , Medication List reviewed and reconciled with the patient * Allergies: I valentina: no iron due to hemochromatosis. Objective: * Vitals: W t:173.0lbs, Ht: 70 in, BMI:24.82Index, BP:001/01mm Hg, Temp:97.3, Wt-k.47. * Examination: G eneral Examination: O n examination today, he appears well. Skin is anicteric. Lungs are clear. Heart shows a regular rate and rhythm. Abdomen is soft without focal masses or tenderness. Extremities are without edema.There is a resting tremor. Assessment: * Assessment: 1. G ERD without esophagitis - K21.9 (Primary) 2 . C olon cancer screening - Z12.11 3 . I valentina overload - E83.19 We discussed gastroesophagea l reflux disease today. We discussed diet, lifestyle modifications, and weight management. He will continue pantoprazole. Because of his persistent symptoms despite PPI therapy, he will undergo upper endoscopy. We discussed risks and benefits of the procedure today. He understands these and agrees to proceed. This will be scheduled at his convenience. Plan: * Treatment: * Procedure Codes: 3 017F COLORECTAL CA SCREEN DOC REV, 1036F TOBACCO NON-USER, G8785 BP SCR NOT PRFRM REC REASON NOS * Preventive Medicine: Screenings: F all Risk Screening F all Risk Assessment: N o falls in the past year, S creening: N o falls in the past year, P rafaela of Care: N ot documented, no reason specified. * Follow Up: 1 Year * * Sign off status: Completed true * Provider: Myrna Nugent MD Date: Generated for Kalpesh jones/Ofelia/eTransmitting on: 07:31 AM EDT History and Physical Notes * HPI (History of Present Illness) Category Sub-Category Detail Notes Category Not es New symptom(s) The patient is a pleasant 70-year-old man seen today in follow-up of gastroesophageal reflux disease and colon cancer screening. He was last seen in May 2024. Colonoscopy in 2024 showed 2 tubular adenomas. We reviewed this today. He reports symptomatic reflux over the last several months despite varying PPI therapy. He was initially treated with omeprazole, which was switched to pantoprazole in January. This was increased to 40 mg at that time. He has no dysphagia, hematemesis, or melena. Weight and appetite have been stable. Symptoms have improved somewhat since the higher dose of a PPI. He does have a family history of stomach cancer and is concerned about this. Examination Category Sub-Category Detail Notes Category Not es General Examination On exami nation today, he appears well. Skin is anicteric. Lungs are clear. Heart shows a regular rate and rhythm. Abdomen is soft without focal masses or tenderness. Extremities are without edema.There is a resting tremor.
--- OUTSIDE RECORDS SUMMARY | 2025-04-23 07:32 | XMS_ITS | Clinical Summary ---
Author Organization [address] [place] [address] [place] [address] Phone Care Team Providers Care Suppression Crew Leader Name Role Phone Physician, Pcp Unknown Primary [...] age to complete this topic Insurance MEDICARE [facility] Care Teams Suppression Crew Leader Relationship Specialty Start Date End Date Physician, Pcp Unknown PCP - General 12/06/24
--- OUTSIDE RECORDS SUMMARY | 2025-04-23 07:32 | XMS_ITS | Encounter Summary ---
Author Organization [facility] Address [address] [place] [address] Care Team Providers Care Drawer Waxer Name Role Phone Physician, Pcp Unknown Primary Care Provider Samira vailable Encounter Details Date Type Department Care Team (Late st Contact Info) Description 12/06/2024 Lab Requisition [facility] - Main Lab [address] [facility] [place] [address] Jian You MD [address] [facility] [address] [place] [phone] Benign essential microscopic hematuria Social History Tobacco [...] 12:00 AM EDT) Final Diagnosis Urine, Voided, ([id number]): Negative for high grade urothelial carcinoma. Results of UroVysion fluorescence in situ hybridization (FISH) testing: CEP3: Normal CEP7: Normal CEP17: Normal LSI 9p21: Normal Interpretation: Normal profile Controls stained appropriately. Note: The results are intended as a screening device and should be interpreted in association with other clinical and pathological findings. 12/19/2024 11:49 AM EDT [facility] Clinical Information Benign essential microscopic hematuria R31.1 Urine Cytology/FISH (now) 12/19/2024 11:49 AM EDT [facility] Gross Description A. Urine, Voided, ([id number]): Received one ThinPrep slide for cytology and one ThinPrep slide for UroVysion FISH 12/19/2024 11:49 AM EDT [facility] Disclaimer Unless otherwise specified, all tissue is 10% NB formalin fixed and paraffin embedded. Technical pathology services provided by [facility] at [address] [facility] [address], [place] [address] (CLIA #[id number]/Shruthi Rivera MD, Glue Spreading Machine Operator) 12/19/2024 11:49 AM EDT [facility] Tissue Urine specimen from urethra / Unknown 12/02/2024 12/06/2024 3:31 PM EDT us Jian You MD LAB PATHOLOGY ORDERABLES Final Result [facility] [address] [place] [address], documented in this encounter Visit Diagnoses Diagnosis Benign essential microscopic hematuria documented in this encounter Care Teams Drawer Waxer Relationship Specialty Start Date End Date Physician, Pcp Unknown PCP - General 12/06/24 documented as of this encounter
--- OUTSIDE RECORDS SUMMARY | 2025-04-23 07:32 | XMS_ITS | Patient Health Record ---
Author Organization [facility] Address [address] [place] [address] Care Team Providers Care Jd Edwards Developer Name Role Phone ODALIS DE LA TORRE Primary Care Provider UnavailBobby Lopez Jr Unavailable Allergies Allergen (clinical drug ingredient) Drug/Non Drug Allergy documented on EMR Reaction Allergy Type Onset Date Status ferrous sulfate Iron no iron due to hemochromatosis Drug Allergy Active Results Component Value Reference Range Notes Pathology Reviewed date:08/01/2024 08:12:45 AM Interpretation: Performing Lab:[facility], [address] [place] [phone] Notes/Report: Reason For Referral No Information Medications [...] Status Risk Notes Problem Colon cancer screening (457980788) Colon cancer screening (Z12.11) Active confirmed Problem Gastroesophageal reflux disease without esophagitis (140059632) Gastroesophageal reflux disease without esophagitis (K21.9) Active confirmed Problem Gastroesophageal reflux disease (900841699) GERD without esophagitis (K21.9) Active confirmed Problem Iron overload (77899369) Iron overload (E83.19) Active confirmed Vital Signs Temperature 97.3 degrees Fahrenheit 04/21/2025 Blood pressure diastolic 01 mm Hg 04/21/2025 Height 70 in 04/21/2025 Blood pressure systolic 001 mm Hg 04/21/2025 Weight 173.0 lbs 04/21/2025 BMI 24.82 kg/m2 04/21/2025 Encounters Encounter Location Date Provider Diagnosis [facility] Outpatient [address] [place] [phone] 07/23/2024 Bobby Nugent Jr Colon cancer screening Z12.11 and FH: colon polyps Z83.719 [facility] [address] [place] [phone] 06/13/2024 Bobby Nugent Jr Colon cancer screening Z12.11 and GERD without esophagitis K21.9 [facility] [address] [place] [address] Drive [address] [place] [phone] 04/21/2025 Bobby Nugent Jr GERD without esophagitis K21.9 ; Colon cancer screening Z12.11 and Iron overload E83.19 [facility] [address] [place] [phone] 08/01/2024 Bobby Nugent Jr [facility] [address] [place] [address] 01/16/2025 Bobby Raffi Lucas [facility] [address] [place] [address] 03/24/2025 Bobbyriver Nugent Jr [facility] [address] [place] [address] 03/24/2025 Bobby Raffi Lucas [facility] [address] [place] [address] 04/21/2025 Bobby Raffijaneth Lucas Assessments Encounter Date [...] Name:Bobby Bella geronimo , 04/25/2025 01:00:00 PM, [address] [place] [address], [phone], Insurance Providers Payer Name Payer Address Payer Phone Subscriber Number Group Number Insured Name Patient Relationship to Insured Coverage Start Date Coverage End Date MEDICARE OF [place] [address] [place], [place] [id number] [phone] [id number] KRISTEN AGRAWAL Self - patient is the insured [employer] ([employer]) [address] [place] [address] [id number] KRISTEN AGRAWAL Self - patient is the [...]
[2025-04-23 11:24] LABS: MANUAL DIFF FLAG NO
[2025-04-23 11:42] LABS: Appearance Urine Clear; Glucose Urine UA Negative (Negative); PH 5.5 (5.0-9.0); Specific Gravity - Urine 1.015 (1.005-1.025); UMIC TRIGGER UACC YES
[2025-04-23 11:46] LABS: Hematocrit 44.0 % (42.0-52.0); Hemoglobin 15.2 g/dl (14.0-18.0); Imm Gran Abs Auto 0.01 X10*3/uL (0.00-0.03); Imm Gran Pct Auto 0.2 % (0.0-0.4); Lymphocytes Absolute Auto 2.2 X10*3/uL (1.2-4.9); Mean Corpuscular HGB Conc 34.5 g/dl (31.0-36.0); Mean Corpuscular Hemoglobin 29.7 pg (27.0-33.0); Mean Corpuscular Volume 85.9 fL (80.0-98.0); NRBC Abs Auto 0.000 X10*3/uL (0.0-0.012); NRBC Pct Auto 0.0 /100WBC (0.0-0.2); Platelet Count 190 X10*3/uL (160-400); Red Blood Count 5.12 X10*6/uL (4.60-5.80); White Blood Count 5.7 X10*3/uL (4.8-10.8)
[2025-04-23 12:10] LABS: Alanine Aminotransferase 22 U/L (0-40); Albumin Level 4.5 g/dL (3.5-5.0); Alkaline Phosphatase 50 U/L (39-117); Anion Gap 10 (12-20); Aspartate Amino Transferase 24 U/L (5-37); Blood Urea Nitrogen 24 mg/dL (9-16); Calcium 9.1 mg/dL (8.4-10.2); Carbon Dioxide 27 mmol/L (22-29); Chloride 109 mmol/L (96-108); Cholesterol 172 mg/dL (<200); Estimated Glomerular Filt Rate 52; HDL Cholesterol 45 mg/dL (>40); Iron 111 mcg/dL (45-160); Percent Iron Saturation 40 % (15-50); Potassium 3.9 mmol/L (3.3-5.1); Sodium 142 mmol/L (135-145); Total Iron Binding Capacity 279 mcg/dL (228-428); Total Protein 6.9 g/dL (6.5-8.0); Triglycerides 73 mg/dL (<150); Unsaturated Iron Binding 168 ug/dL
[2025-04-23 12:11] LABS: Ferritin 55 ng/mL (20-250)
[2025-04-23 12:39] LABS: Total Protein Urine Random < 7 mg/dL (<12)
== END 2025-04-23 07:31 | disposition home or self-care (01) ==
LOC: HO.10HDL 07:30
PROVIDERS: Nurse Practitioner Family; Visit Provider Internal Medicine Hypertension Specialist
DX: N18.9 Chronic kidney disease, unspecified (principal); E78.5 Hyperlipidemia, unspecified; E83.19 Other disorders of iron metabolism; Z12.5 Encounter for screening for malignant neoplasm of prostate
CPT/HCPCS: 36415; 80048; 80053; 80061; 81001; 82306; 82570; 82728; 83540; 84153; 84156; 84443; 85025

== ENCOUNTER 2025-04-25 11:18 | Day surgery (SDC) | payer MEDICARE, OTHER, SELFPAY ==
--- OUTSIDE RECORDS SUMMARY | 2024-07-23 05:10 | XMS_ITS ---
Author Organization [facility] Address [address] [place] [phone] Care Team Providers Care Manufacturing Specialist Name Role Phone ODALIS DE LA TORRE Primary Care Provider Bobby Manzo Jr REASON FOR VISIT screening Encounters Encounter Location Date Provider Diagnosis [facility] [place] [address] [place] [phone] 07/23/2024 Bobby Nugent Jr Colon cancer screening Z12.11 and FH: colon polyps Z83.719 Assessments Encounter Date Diagnosis (ICD Code) Assessment Notes Treatment Notes Treatment Clinical Notes Section Notes 07/23/2024 Colon cancer screening (ICD-10 - Z12.11) 07/23/2024 FH: colon polyps (ICD-10 - Z83.719) Plan Of Treatment Next Appt Details Provider Name:Bobby geronimo Jr, 04/25/2025 01:00:00 PM, [address] [place] [address], [phone], Progress Notes * KRITSEN AGRAWAL LDOB:1955 (70 yo M)Acc No.[id number]:07/23/2024 COLON WITH MAC Patient: KRISTEN BARAJAS Abril Provider: Myrna Nugent MD :1955 A ge:69 Y S ex:Male Date:07/23/2024 Address:[address] [place], [place] [phone] Pcp:ODALIS DE LA TORRE Subjective: * Chief [...] 0 07/23/2024 Generated for Kalpesh jones/Ofelia/Nahumsmitting on: 02:30 PM EDT
--- OUTSIDE RECORDS SUMMARY | 2025-04-21 10:15 | XMS_ITS ---
Author Organization [facility] Address [address] [place] [address] Care Team Providers Care Allergy And Immunology Chief Name Role Phone ODALIS DE LA TORRE Primary Care Provider UnavailBobby Lopez Jr Unavailable [phone] Allergies Allergen (clinical drug ingredient) Drug/Non [...] 04/21/2025 Encounters Encounter Location Date Provider Diagnosis [facility] [address] [place] [address] 04/21/2025 Bobby Nugent Jr GERD without esophagitis [...] Name:Bobby Armstrong grazyna Lucas, 04/25/2025 01:00:00 PM, [address] [place] [address] , [place], [place], [phone], Progress Notes * KRISTEN AGRAWAL LDOB:1955 (70 yo M)Acc No.[id number]:04/21/2025 Progress Notes Patient: KRISTEN BARAJAS Provider: Myrna Nugent MD :1955 A ge:70 Y S ex:Male Date:04/21/2025 Address:[address] [place], [place] [phone] Pcp:ODALIS DE LA TORRE Subjective: * Chief [...] Myrna Nugent MD Date: Generated for Kalpesh jones/Ofelia/Nahumsmitting on: 02:30 PM EDT History and Physical Notes * [...]
--- OUTSIDE RECORDS SUMMARY | 2025-04-22 14:30 | XMS_ITS | Patient Health Record ---
Author Organization [facility] Address [address] [place] [address] Care Team Providers Care Budget Coordinator Name Role Phone ODALIS DE LA TORRE Primary Care Provider UnavailBobby Lopez Jr Unavailable Allergies Allergen (clinical drug ingredient) Drug/Non Drug Allergy documented on EMR Reaction Allergy Type Onset Date Status ferrous sulfate Iron no iron due to hemochromatosis Drug Allergy Active Results Component Value Reference Range Notes Pathology Reviewed date:08/01/2024 08:12:45 AM Interpretation: Performing Lab:[facility], [address] [place] [phone] Notes/Report: Reason For Referral No Information Medications Medication SIG (Take, Route, Frequency, Duration) Notes Start Date End Date Status Tadalafil 5 MG TAKE 1 TABLET BY MOUTH ONCE DAILY Oral; Duration: 90 Active Gemtesa 75 MG TAKE 1 TABLET BY MOUTH ONCE A DAY Oral; Duration: 30 ,Unavailab le Active Pantoprazole Sodium 40 MG 1 tablet 1/2 to 1 hour before morning meal Orally Once a day; Duration: 30 days 03/25/2025 Active MiraLax (colon prep) 17 GM/SCOOP mixed with Gatorade or Crystal Light Orally begin at 5:00 p.m. the day before the procedure; Duration: 1 day 06/13/2024 Active Tamsulosin HCl 0.4 MG 2 capsule Orally Once a day Active Vitamin D3 25 MCG (1000 UT) Orally Once a day Active Atorvastatin Calcium 20 MG 1 tablet Orally Once a day Active Myrbetriq 50 MG Orally Acti ve Finasteride Active Joint Support Complex Active Immunizations Vaccine Route Administration Date Status Comme nts Influenza Unknown 04/18/2024 Administered Social History Tobacco Use: Social History Observation [...] Status Risk Notes Problem Colon cancer screening (544792989) Colon cancer screening (Z12.11) Active confirmed Problem Gastroesophageal reflux disease without esophagitis (563824900) Gastroesophageal reflux disease without esophagitis (K21.9) Active confirmed Problem Gastroesophageal reflux disease (135441575) GERD without esophagitis (K21.9) Active confirmed Problem Iron overload (26143923) Iron overload (E83.19) Active confirmed Vital Signs Temperature 97.3 degrees Fahrenheit 04/21/2025 Blood pressure diastolic 01 mm Hg 04/21/2025 Height 70 in 04/21/2025 Blood pressure systolic 001 mm Hg 04/21/2025 Weight 173.0 lbs 04/21/2025 BMI 24.82 kg/m2 04/21/2025 Encounters Encounter Location Date Provider Diagnosis [facility] Outpatient [address] [place] [phone] 07/23/2024 Bobby Nugent Jr Colon cancer screening Z12.11 and FH: colon polyps Z83.719 [facility] [address] [place] [phone] 06/13/2024 Bobby Nugent Jr Colon cancer screening Z12.11 and GERD without esophagitis K21.9 [facility] [address] [place] [address] Drive [address] [place] [phone] 04/21/2025 Bobby Nugent Jr GERD without esophagitis K21.9 ; Colon cancer screening Z12.11 and Iron overload E83.19 [facility] [address] [place] [phone] 08/01/2024 Bobby Nugent Jr [facility] [address] [place] [address] 01/16/2025 Bobby Raffi Lucas [facility] [address] [place] [address] 03/24/2025 Bobbyriver Nugent Jr [facility] [address] [place] [address] 03/24/2025 Bobby Raffi Lucas [facility] [address] [place] [address] 04/21/2025 Bobby Raffijaneth Lucas Assessments Encounter Date Diagnosis (ICD Code) Assessment [...] risks and benefits and agrees to proceed. 04/21/2025 Colon cancer screening (ICD-10 - Z12.11) We discussed gastroesophageal reflux disease today. We discussed diet, lifestyle modifications, and weight management. He will continue pantoprazole. Because of his persistent symptoms despite PPI therapy, he will undergo upper endoscopy. We discussed risks and benefits of the procedure today. He understands these and agrees to proceed. This will be scheduled at his convenience. 04/21/2025 GERD without esophagitis (ICD-10 - K21.9) [...] GI ENDOSCOPY 11/30/2016 COLONOSCOPY 11/30/2016 COLONOSCOPY 06/13/2024 UPPER GI ENDOSCOPY 04/21/2025 Next Appt Details Provider Name:Bobby Bella geronimo , 04/25/2025 01:00:00 PM, [address] [place] [address], [phone], Insurance Providers Payer Name Payer Address Payer Phone Subscriber Number Group Number Insured Name Patient Relationship to Insured Coverage Start Date Coverage End Date MEDICARE OF [place] [address] [place], [place] [id number] [phone] [id number] KRISTEN AGRAWAL Self - patient is the insured [employer] ([employer]) [address] [place] [address] [id number] KRISTEN AGRAWAL Self - patient is the insured Medical (General) History Medical History History ICD Code gastroesophageal reflux dise ase, upper endoscopy 06/11 mild reflux on biopsy, normal stomach and duodenal biopsies chronic kidney disease hemochromatosis hyperlipidemia Colonoscopy 07/20, tubular adenoma x 2, c olon recall 5 years. overactive bladder (OAB) BPH Tremor, Parkinson's disease versus essen tial tremor. Surgical History Surgery Date(Month/Year)
--- NOTE | 2025-04-23 10:01 | HO.ANESPROP2 ---
Documented by User: Brisa Suazo NP 04/23/25 10:04 HPI - Anesthesia Eval Consult details Narrative: 70yo M for Upper Endoscopy s/p colo 06/2024 with TIVA PMFSH Active Problems Active Problems: All Active Problems Screening for colon cancer (Acute) Encounter for routine adult physical exam with abnormal findings (Acute) Vitamin D deficiency (Acute) CKD (chronic kidney disease) (Acute) Cerumen impaction (Acute) Pain of left heel (Acute) Ringing of ears (Acute) Parkinson's disease (Acute) Elevated liver enzymes (Acute) Parkinsons (Acute) Elevated serum creatinine (Acute) Screening PSA (prostate specific antigen) (Acute) Microscopic hematuria (Acute) Tremor of right hand (Acute) Skin lesion (Acute) Tachycardia (Acute) Dyslipidemia (Acute) Iron overload (Chronic) Parkinson's disease without dyskinesia (Acute) Rash (Acute) Past Medical History Medical History (Updated 04/25/25 @ 12:32 by Ada Porras RN) GERD (gastroesophageal reflux disease) Parkinson's disease without dyskinesia Rash Hereditary hemochromatosis OAB (overactive bladder) BPH (benign prostatic hyperplasia) High cholesterol Family History Family History Father Stomach cancer Paternal Aunt Stomach cancer Paternal Uncle Stomach cancer Mother HTN (hypertension) Heart disease Sister No problems noted. Son No problems noted. Son No problems noted. Family history of problems with anesthesia: No Surgical History Surgical History History of back surgery History of esophagogastroduodenoscopy (EGD) H/O colonoscopy History of Problems with Anesthesia: No Social History Social History Household Members: Spouse Housing: House Are you a primary childcare administrator to a significant other at home: No Do you presently have visiting nurse or other home services: No Alcohol intake: current Alcohol intake frequency: a few times a month Alcohol type: beer Patient Tobacco Use Status: Never used Tobacco e-Cigarette/Vaping Use: Never Used Use of substances other than those prescribed or required for medical reasons: No Are you DNR?: No Advance Directives: No Advance Directives Information Provided: Yes service: No Current occupational status: retired Cognitive needs: No Hearing needs: No Vision needs: Yes Meds Allergies Allergy/AdvReac Type Severity Reaction Status Date / Time No Known Allergies Allergy Verified 04/25/25 11:44 Home Medications ?Medication ?Instructions ?Recorded ?Confirmed ?Last Taken ?Type finasteride 5 mg tablet 5 mg PO DAILY 04/07/20 04/25/25 Unknown History tamsulosin 0.4 mg capsule 0.4 mg PO BID 04/07/20 04/25/25 Unknown History tadalafil 5 mg tablet 5 mg PO DAILY 07/27/23 04/25/25 Unknown History vibegron 75 mg tablet (Gemtesa) 75 mg PO DAILY 12/12/23 04/25/25 Unknown History Exam Pertinent Lab Results Pertinent Lab Results: Laboratory Tests 11/22/24 06:13 WBC 5.3 Hgb 14.8 Hct 43.0 Plt Count 188 Sodium 144 Potassium 4.1 Chloride 110 H Carbon Dioxide 24 BUN 23 H Creatinine 1.27 Assessment and Plan Assessment Anesthesia Assessment: Chart Reviewed Final Anesthetic Review Family History of Problems with Anesthesia: No History of Problems with Anesthesia: No Documented by User: Jesus Mcelroy MD 04/25/25 12:54 PMFSH Past Medical History Medical History (Updated 04/25/25 @ 12:32 by Ada Porras RN) GERD (gastroesophageal reflux disease) Parkinson's disease without dyskinesia Rash Hereditary hemochromatosis OAB (overactive bladder) BPH (benign prostatic hyperplasia) High cholesterol Family History Family History Father Stomach cancer Paternal Aunt Stomach cancer Paternal Uncle Stomach cancer Mother HTN (hypertension) Heart disease Sister No problems noted. Son No problems noted. Son No problems noted. Surgical History Surgical History History of back surgery History of esophagogastroduodenoscopy (EGD) H/O colonoscopy Social History Social History Household Members: Spouse Housing: House Are you a primary childcare administrator to a significant other at home: No Do you presently have visiting nurse or other home services: No Alcohol intake: current Alcohol intake frequency: a few times a month Alcohol type: beer Patient Tobacco Use Status: Never used Tobacco e-Cigarette/Vaping Use: Never Used Use of substances other than those prescribed or required for medical reasons: No Are you DNR?: No Advance Directives: No Advance Directives Information Provided: Yes service: No Current occupational status: retired Cognitive needs: No Hearing needs: No Vision needs: Yes Meds Allergies Allergy/AdvReac Type Severity Reaction Status Date / Time No Known Allergies Allergy Verified 04/25/25 11:44 Home Medications ?Medication ?Instructions ?Recorded ?Confirmed ?Last Taken ?Type finasteride 5 mg tablet 5 mg PO DAILY 04/07/20 04/25/25 Unknown History tamsulosin 0.4 mg capsule 0.4 mg PO BID 04/07/20 04/25/25 Unknown History tadalafil 5 mg tablet 5 mg PO DAILY 07/27/23 04/25/25 Unknown History vibegron 75 mg tablet (Gemtesa) 75 mg PO DAILY 12/12/23 04/25/25 Unknown History Exam Airway Mallampati Class: II TM Dist: <=3cm Neck ROM: Full Loose/Missing/Broken Teeth: No Heart: ok Lungs: ok Assessment and Plan Assessment Anesthesia Assessment: Anesthesia Plan Discussed Final Anesthetic Review NPO: Yes ASA Class: IV Final Preanesthetic Review: No Changes in Pt Med Stat, Meds/Allgs Chart Reviewed, Consent Obtained/Reviewed and Anes Risks/Benef Reviewed Patient Risk: High Procedure Risk: Intermediate Anesthetic Plan Anesthetic Plan: Agree w/ Assess. and Plan and TIVA Disposition: Standard PACU
[2025-04-25 11:45] VITALS: BP 118/70; PULSE 66; RESP 16; TEMP 36.6; O2SAT 97; BMI 24.4
--- NOTE | 2025-04-25 11:56 | MHC.SHP ---
Pre-Procedural Eval Section A - 24 Hr Update-Section A only Date of Service: 04/25/25 The patient is an INPATIENT: No Changes since office visit: No Cold of Flu in the past 2 weeks, No New Medical Problems, No Changes in Medication and No Patient answered all questions The patient has been examined within 24 hours of the surgical procedure. The History & Physical has been completed within 30 days and I have reviewed it.: Yes Section B - Complete if H&P > 30 days Chief Complaint: gerd Allergies: Allergies Allergy/AdvReac Type Severity Reaction Status Date / Time No Known Allergies Allergy Verified 04/25/25 11:44 Plan I have reviewed the history and physical and performed a pertinent physical examination on my patient. No changes have occurred unless specified. Time Spent With Patient Time: Total time managing care of this patient today ____ minutes.
[2025-04-25] MEDS: Lactated Ringers 1,000 ML 100 ML IVCONT (12:05)
[2025-04-25 13:20] VITALS: BP 82/42; PULSE 63; RESP 18; TEMP 36.2; O2SAT 91
[2025-04-25 13:30] VITALS: BP 90/50; PULSE 57; RESP 18; O2SAT 96
[2025-04-25 13:45] VITALS: BP 113/52; PULSE 61; RESP 18; TEMP 36.2; O2SAT 98
--- NOTE | 2025-04-26 00:44 | OP_ITS ---
DATE OF SERVICE: 04/25/2025 SURGEON: Bobby Nugent MD INDICATIONS: Gastroesophageal reflux disease and family history of stomach cancer. PREOPERATIVE DIAGNOSIS: POSTOPERATIVE DIAGNOSIS: PROCEDURE PERFORMED: Upper endoscopy with biopsy. ESTIMATED BLOOD LOSS: COMPLICATIONS: ANESTHESIA: Monitored anesthesia care. ASSISTANTS: SPECIMENS: DESCRIPTION OF PROCEDURE: A history and physical was performed. The risks and benefits of the procedure were explained to the patient and informed consent was obtained. The patient was placed in the left lateral decubitus position. The Olympus video gastroscope was introduced into the esophagus, stomach, and duodenum. Examination was performed and the scope was removed. He tolerated the procedure well and was returned to the recovery area in stable condition. FINDINGS: 1. Esophagus: The esophagus showed an irregular EG junction, but no evidence of esophagitis. Biopsies were obtained from the EG junction. 2. Stomach: The folds in the body of the stomach were somewhat prominent. Several benign-appearing gastric polyps were present in the fundus and body consistent with fundic gland polyps. Biopsies were obtained from the body and from the antrum. There was no evidence of peptic ulcer disease and no mass. 3. Duodenum: The bulb and 2nd portion were normal. Biopsies were obtained from the 2nd portion. IMPRESSION: Gastroesophageal reflux disease. RECOMMENDATIONS: 1. Follow up the biopsy results. 2. Continue proton pump inhibitor. MD DAISY Morrow/OUMARL / [phone]
== END 2025-04-25 14:11 | disposition home or self-care (01) ==
PROVIDERS: PCP Nurse Practitioner Family; Visit Provider Internal Medicine Gastroenterology
PROC: 0DJ08ZZ Inspection of Upper Intestinal Tract, Via Natural or Artificial Opening Endoscopic (ICD-10-PCS; CPT 43235; principal; 2025-04-25 13:00)
DX: K21.9 Gastro-esophageal reflux disease without esophagitis (principal); Z80.0 Family history of malignant neoplasm of digestive organs; K22.89 Other specified disease of esophagus; K31.7 Polyp of stomach and duodenum; N18.9 Chronic kidney disease, unspecified; N32.81 Overactive bladder; N40.0 Benign prostatic hyperplasia without lower urinary tract symptoms; E83.119 Hemochromatosis, unspecified; G20.A1 Parkinson's disease without dyskinesia, without mention of fluctuations; E78.5 Hyperlipidemia, unspecified; Z79.899 Other long term (current) drug therapy
CPT/HCPCS: 43239; 88305; 88313; 88342; J2003; J2704

== ENCOUNTER 2025-05-13 09:29 | Outpatient (AMB) | payer MEDICARE, OTHER, SELFPAY ==
[2025-05-13 09:33] VITALS: BP 108/62; PULSE 85; O2SAT 98; BMI 24.5
--- NOTE | 2025-05-13 09:33 | HO.NEPHOV_ITS ---
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 He is here for follow-up. He continues to have bladder dysfunction. On GEmtessa He has an implant and has follow-up with Urology as well. REcent USG was repoertedly unremarkable He has had no gross hematuria. No increased frequency. 05/13/25 The patient is a 70-year-old male presenting with hematuria and chronic kidney disease for an annual follow-up. The patient has a history of Parkinson's disease, which has been managed over the years. He is also being followed by urology for hematuria, which has been stable with trace blood and no protein in the urine. The patient's chronic kidney disease has been stable with creatinine levels around 1.3 to 1.4 mg/dL over the past few years. The estimated glomerular filtration rate (eGFR) has remained stable at around 52%, indicating Stage 3 CKD. The patient reports an overactive bladder syndrome, managed with a ne urostimulator, although it has not been very effective. He experiences frequent urination but denies any visible blood in the urine. [facility] Medical History (Updated 04/25/25 @ 12:32 by Ada Porras RN) GERD (gastroesophageal reflux disease) Parkinson's disease without dyskinesia Rash Hereditary hemochromatosis OAB (overactive bladder) BPH (benign prostatic hyperplasia) High cholesterol Surgical History History of back surgery History of esophagogastroduodenoscopy (EGD) H/O colonoscopy Family History Father Stomach cancer Paternal Aunt Stomach cancer Paternal Uncle Stomach cancer Mother HTN (hypertension) Heart disease Sister No problems noted. Son No problems noted. Son No problems noted. Social History Household Members: Spouse Housing: House Are you a primary respiratory care program director to a significant other at home: No Do you presently have visiting nurse or other home services: No Alcohol intake: current Alcohol intake frequency: a few times a month Alcohol type: beer Patient Tobacco Use Status: Never used Tobacco e-Cigarette/Vaping Use: Never Used service: No Current occupational status: retired Cognitive needs: No Hearing needs: No Vision needs: Yes Physical Exam Vital Signs: Last Vital Signs Pulse 85 05/13/25 09:33 BP 108/62 05/13/25 09:33 Pulse Ox 98 05/13/25 09:33 Oxygen Delivery Method Room Air 05/13/25 09:33 BMI result Body Mass Index 24.5 Comfortable Neck supple no JVD. Lungs entry equal no rales. Heart S1-S2 heard no gallop or rub. Abdomen soft nontender. Neuro alert awake oriented. No asterixis. Resting tremor+ Extremities no edema. Results Reviewed Nephrology Results: Hgb, (14.0-18.0) 15.2 g/dl 04/23/25 WBC, (4.8-10.8) 5.7 X10*3/uL 04/23/25 Plt Count, (160-400) 190 X10*3/uL 04/23/25 Sodium, (135-145) 142 mmol/L 04/23/25 Potassium, (3.3-5.1) 3.9 mmol/L 04/23/25 Chloride, (96-108) 109 mmol/L H 04/23/25 Carbon Dioxide, (22-29) 27 mmol/L 04/23/25 BUN, (9-16) 24 mg/dL H 04/23/25 Creatinine, (0.5-1.4) 1.36 mg/dL 04/23/25 Calcium, (8.4-10.2) 9.1 mg/dL 04/23/25 Urine Protein, (Neg-Trace) Negative mg/dL 04/23/25 Urine Creatinine 108.30 mg/dL 04/23/25 Renal US 04/01/22 Assessment & Plan Assessment & Plan (1) Elevated serum creatinine: Code(s): R79.89 - Other specified abnormal findings of blood chemistry Category: Medical Plan: Serum creatinine is close to baseline at 1.2 40 1.4. 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 Encouraged to stay on low-sodium diet. Increase p.o. fluid intake. Continue to avoid nephrotoxic agents including NSAIDs. No significant proteinuria. (2) CKD (chronic kidney disease): Code(s): N18.9 - Chronic kidney disease, unspecified Category: Medical Plan as above Orders: Orders UA and rflx microscopic 1 Year N18.9 - Chronic kidney disease, unspecified Basic Metabolic Panel 1 Year N18.9 - Chronic kidney disease, unspecified Coding Level of Care Code Est Pt Level 4 (65327) Diagnoses Elevated serum creatinine R79.89 CKD (chronic kidney disease) N18.9
== END 2025-05-13 09:52 | disposition home or self-care (01) ==
LOC: HO.HKA 09:30
PROVIDERS: PCP Nurse Practitioner Family; Visit Provider Internal Medicine Hypertension Specialist
DX: R79.89 Other specified abnormal findings of blood chemistry (principal); N18.9 Chronic kidney disease, unspecified
CPT/HCPCS: 99214

== ENCOUNTER → 2025-05-13 09:29 | Outpatient (BNVA) | payer MEDICARE, OTHER, SELFPAY | PROVIDERS: PCP Nurse Practitioner Family; Visit Provider Internal Medicine Hypertension Specialist | DX: N18.31 Chronic kidney disease, stage 3a (principal); R79.89 Other specified abnormal findings of blood chemistry; N32.81 Overactive bladder | CPT/HCPCS: 99212 ==

== ENCOUNTER 2025-06-04 17:47 | Outpatient (REF) | payer MEDICARE, OTHER, SELFPAY ==
--- OUTSIDE RECORDS SUMMARY | 2024-07-23 04:10 | XMS_ITS ---
Author Organization [facility] Address [address] [place] [address] Care Team Providers Care Passport Support Manager Name Role Phone ODALIS DE LA TORRE Primary Care Provider Bobby Manzo Jr REASON FOR VISIT screening Encounters Encounter Location Date Provider Diagnosis [facility] [address] [place], [place] [phone] 07/23/2024 Bobby Nugent Jr Colon cancer screening Z12.11 and FH: colon polyps Z83.719 Assessments Encounter Date Diagnosis (ICD Code) Assessment Notes Treatment Notes Treatment Clinical Notes Section Notes 07/23/2024 Colon cancer screening (ICD-10 - Z12.11) 07/23/2024 FH: colon polyps (ICD-10 - Z83.719) Plan Of Treatment Next Appt Details Provider Name:Bobby geronimo Jr, 10/29/2025 10:20:00 AM, [address], [address], [place], [address], Progress Notes * KRISTEN AGRAWAL LDOB:1955 (70 yo M)Acc No.[id number]:07/23/2024 COLON WITH MAC Patient: KRISTEN BARAJAS Abril Provider: Myrna Nugent MD :1955 A ge:69 Y S ex:Male Date:07/23/2024 Address:[address] [place] [address] [facility] Pcp:ODALIS DE LA TORRE Subjective: * Chief Complaints: * S creening Assessment: * Assessment: 1. C olon cancer screening - Z12.11 (Primary) 2 . F H: colon polyps - Z83.719 Plan: * Procedure Codes: 4 5378 DIAGNOSTIC [id number] INTRVL 3+YRS PTS CLNSCP DOCD Billing Information: * Procedure Codes: 49918 DIAGNOSTIC COLONOSCOPY. 0529F INTRVL 3+YRS PTS CLNSCP DOCD. * The named appointment provid er may or may not be the originator of this progress note, and it is not deemed complete until electronically signed by the appointment provider. Sign off status: Pending * Provider: Myrna Nugent MD Date: 0 07/23/2024 Generated for Kalpesh jones/Ofelia/Jayitting on: 08/06/2024 12:55 AM EST
--- OUTSIDE RECORDS SUMMARY | 2025-04-25 08:00 | XMS_ITS ---
Author Organization [facility] Address [address] [place] [id number] Care Team Providers Care Scaffold Setter Name Role Phone ODALIS DE LA TORRE Primary Care Provider Bobby Manzo Jr REASON FOR VISIT GERD Encounters Encounter Location Date Provider Diagnosis [facility] [address] [place] [id number] 04/25/2025 Bobby Nugent Jr Plan Of Treatment Next Appt Details Provider Name:Bobby geronimo Jr, 10/29/2025 10:20:00 AM, [address], [address], [place], [address], Progress Notes * KRISTEN AGRAWAL LDOB:1955 (70 yo M)Acc No.[id number]:04/25/2025 EGD/MAC Patient: KRISTEN BARAJAS Provider: Myrna Nugent MD :1955 A ge:70 Y S ex:Male Date:04/25/2025 Address:[address] [place], [place] [address]. [id number] Pcp:ODALIS DE LA TORRE Subjective: * Chief Complaints: * G ERD Billing Information: * Procedure Codes: * The named appointment provid er may or may not be the originator of this progress note, and it is not deemed complete until electronically signed by the appointment provider. Sign off status: Pending * Provider: Myrna Nugent MD Date: 1 Generated for Kalpesh jones/Ofelia/David on: 1 08/06/2024 12:55 AM EST
--- NOTE | ~2025-06-04 | MR_ITS ---
EXAMINATION: MR BRAIN WITHOUT CONTRAST CLINICAL INFORMATION: G 20. Parkinson's disease COMPARISON: None available. TECHNIQUE: MRI of the brain was obtained using routine sequences without contrast. FINDINGS: No restricted diffusion. No acute intracranial hemorrhage, mass effect, midline shift, hydrocephalus or herniation. Smith-white matter differentiation is normal. Bilateral, a few, scattered, nonspecific, subcortical white matter hyperintense T2 FLAIR signal foci involving mostly centrum semiovale right frontal lobe. No susceptibility signal abnormality in the substantia nigra. Posterior cranial fossa contents demonstrated no signal abnormality or mass effect. Flow-void signal within the main cerebral vessels is normal. Normal position of the cerebellar tonsils. 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 Prominence of the extra-axial CSF spaces cerebral sulci involving mostly the bifrontal parietal lobes. MR/MR head/brain wo con IMPRESSION: No acute right abnormality. Nonspecific white matter T2 FLAIR signal. Bifrontal parietal lobe atrophy, mild. Electronically signed by: Camacho Sigala MD 06/05/2025 06:35 AM TIN
--- OUTSIDE RECORDS SUMMARY | 2025-06-05 00:55 | XMS_ITS | Encounter Summary ---
Author Organization [facility] Address [address] [place] [address] Care Team Providers Care Cloth Sander Name Role Phone Physician, Pcp Unknown Primary Care Provider Samira vailable Encounter Details Date Type Department Care Team (Late st Contact Info) Description 12/06/2024 Lab Requisition [facility] - Main Lab [address] [facility] [place] [address] Jian You MD [address] [facility] [address] [place] [id number] Benign essential microscopic hematuria Social History Tobacco [...] 12:00 AM EDT) Final Diagnosis Urine, Voided, ([id number]): Negative for high grade urothelial carcinoma. Results of UroVysion fluorescence in situ hybridization (FISH) testing: CEP3: Normal CEP7: Normal CEP17: Normal LSI 9p21: Normal Interpretation: Normal profile Controls stained appropriately. Note: The results are intended as a screening device and should be interpreted in association with other clinical and pathological findings. 12/19/2024 11:49 AM EDT [facility] at 1149 EDT Clinical Information Benign essential microscopic hematuria R31.1 Urine Cytology/FISH (now) 12/19/2024 11:49 AM EDT [facility] Gross Description A. Urine, Voided, ([id number]): Received one ThinPrep slide for cytology and one ThinPrep slide for UroVysion FISH 12/19/2024 11:49 AM EDT [facility] Disclaimer Unless otherwise specified, all tissue is 10% NB formalin fixed and paraffin embedded. Technical pathology services provided by [facility] at [address] [facility] [address], [place] [address] (CLIA #[id number]/Shruthi Rivera MD, Cdl Dedicated Truck Driver) 12/19/2024 11:49 AM EDT [facility] Tissue Urine specimen from urethra / Unknown 12/02/2024 12/06/2024 3:31 PM EDT us Jian You MD LAB PATHOLOGY ORDERABLES Final Result [facility] [address] [place] [address], documented in this encounter Visit Diagnoses Diagnosis Benign essential microscopic hematuria documented in this encounter Care Teams Cloth Sander Relationship Specialty Start Date End Date Physician, Pcp Unknown PCP - General 12/06/24 documented as of this encounter
--- OUTSIDE RECORDS SUMMARY | 2025-06-05 00:55 | XMS_ITS | Clinical Summary ---
Author Organization [address] Address [address] [place] [address] Phone Care Team Providers Care Teaching Dietitian Name Role Phone Physician, Pcp Unknown Primary [...] Influencers of Health Screening 12/07/2024 COVID-19 Vaccine (1 - 2024-2 6 season) 2025 Influenza Vaccine (#1) 2025 RSV [...] age to complete this topic Insurance MEDICARE [facility] Care Teams Teaching Dietitian Relationship Specialty Start Date End Date Physician, Pcp Unknown PCP - General 12/06/24
--- OUTSIDE RECORDS SUMMARY | 2025-06-05 00:55 | XMS_ITS | Clinical Summary ---
Author Organization [facility] Address [address] [address] Care Team Providers Care Teacher Hearing Impaired Name Role Phone Gurpreet Pena NP Primary Care Provider [phone] Allergies Active Allergy Reactions Criticality Noted Date [...] age to complete this topic Insurance Medicare [facility] Medicare [employer] Care Teams Teacher Hearing Impaired Relationship Specialty Start Date End Date Gurpreet Pena NP [address] [place] [address] PCP - General Nurse Practitioner 12/08/21
--- OUTSIDE RECORDS SUMMARY | 2025-06-05 00:55 | XMS_ITS | Patient Health Record ---
Author Organization [facility] Address [address] [place] [address] Care Team Providers Care Communications Equipment Installer Name Role Phone ODALIS DE LA TORRE Primary Care Provider Bobby Manzo Jr Allergies Allergen (clinical drug ingredient) Drug/Non Drug Allergy documented on EMR Reaction Allergy Type Onset Date Status ferrous sulfate Iron no iron due to hemochromatosis Drug Allergy Active Results Component Value Reference Range Notes Pathology Reviewed date:08/01/2024 08:12:45 AM Interpretation: Performing Lab:[facility], [address] [place] [phone] Notes/Report: Pathology Reviewed date:04/30/2025 07:59:11 AM Interpretation: Performing Lab:[facility], [address] [place] [phone] Notes/Report: Reason For Referral No Information Medications Medication SIG (Take, Route, Frequency, Duration) Notes Start Date End Date Status Tadalafil 5 MG Tablet TAKE 1 TABLET BY MOUTH ONCE DAILY Oral; Duration: 90 Active Gemtesa 75 MG Tablet TAKE 1 TABLET BY MOUTH ONCE A DAY Oral; Duration: 30 ,Unavail le Active Pantoprazole Sodium 40 MG Tablet Delayed Release 1 tablet 1/2 to 1 hour before morning meal Orally Once a day; Duration: 30 days 03/25/2025 Active MiraLax (colon prep) 17 GM/SCOOP Powder mixed with Gatorade or Crystal Light Orally begin at 5:00 p.m. the day before the procedure; Duration: 1 day 06/13/2024 Active Tamsulosin HCl 0.4 MG Capsule Extended Release 24 Hour 2 capsule Orally Once a day Active Vitamin D3 25 MCG (1000 UT) Tablet Orally Once a day Active Atorvastatin Calcium 20 MG Tablet 1 tablet Orally Once a day Active Myrbetriq 50 MG Tablet Extended Release 24 Hour Orally Active Finasteride Active Joint Support Complex Active Immunizations Vaccine Route Administration Date Status Comme nts Influenza Unknown 04/18/2024 Administered Social History Tobacco Use: Social History Observation Description Date Details (start date - stop date) Never Smoker NA - NA Social History Drugs/Alcohol: Social Info Question Answer Notes Alcohol Screen Did you have a drink containing alcohol in the past year? Yes How often did you have a drink containing [...] Never (0 point) Points 2 Interpretation Negative Tobacco Use: Social Info Question Answer Notes Tobacco Use/Smoking Patient is a nonsmoker Additional Details Category Social Info Options Details Miscellaneous: Marital status: Occupation: retired Problems Problem Type SNOMED Code ICD Code Onset Dates Problem Status W/U Status Risk Notes Problem Colon cancer screening (338895348) Colon cancer screening (Z12.11) Active confirmed Problem Gastroesophageal reflux disease without esophagitis (818779645) Gastroesophageal reflux disease without esophagitis (K21.9) Active confirmed Problem Gastroesophageal reflux disease (615153529) GERD without esophagitis (K21.9) Active confirmed Problem Iron overload (91440824) Iron overload (E83.19) Active confirmed Vital Signs Temperature 97.3 degrees Fahrenheit 04/21/2025 Blood pressure diastolic 01 mm Hg 04/21/2025 Height 70 in 04/21/2025 Blood pressure systolic 001 mm Hg 04/21/2025 Weight 173.0 lbs 04/21/2025 BMI 24.82 kg/m2 04/21/2025 Encounters Encounter Location Date Provider Diagnosis [facility] [address] [place] [id number] 07/23/2024 Bobby Nugent Jr Colon cancer screening Z12.11 and FH: colon polyps Z83.719 [facility] [address] [place] [id number] 04/25/2025 Bobby Nugent Jr [facility] [address] [place] [phone] 06/13/2024 Bobby Nugent Jr Colon cancer screening Z12.11 and GERD without esophagitis K21.9 [facility] [address] [place] [phone] 04/21/2025 Bobby Nugent Jr GERD without esophagitis K21.9 ; Colon cancer screening Z12.11 and Iron overload E83.19 [facility] [address] [place] [phone] 08/01/2024 Bobby Nugent Jr [facility] [address] [place] [phone] 01/16/2025 Bobby Nugent Jr [facility] [address] [place] [phone] 03/24/2025 Bobby Nugent Jr [facility] [address] [place] [phone] 03/24/2025 Bobby Nugent Jr [facility] [address] [place] [phone] 04/21/2025 Bobby Nugent Jr [facility] [address] [place] [phone] 04/30/2025 Bobby Nugent Jr Assessments Encounter Date Diagnosis [...] ENDOSCOPY 04/21/2025 Next Appt Details Provider Name:Bobby geronimo , 10/29/2025 10:20:00 AM, [address] [place] [address], [address], [place], [address], Insurance Providers Payer Name Payer Address Payer Phone Subscriber Number Group Number Insured Name Patient Relationship to Insured Coverage Start Date Coverage End Date MEDICARE OF [place] [address] MIGUEL A JARA [id number] KRISTEN AGRAWAL Self - patient is the insured [employer] [facility] [employer] [address] [place] [id number] KRISTEN AGRAWAL Self - patient is the [...]
== END 2025-06-04 17:48 | disposition home or self-care (01) ==
LOC: HO.MRI 17:47
PROVIDERS: PCP Nurse Practitioner Family; Visit Provider Psychiatry & Neurology Neurology
DX: G20.A1 Parkinson's disease without dyskinesia, without mention of fluctuations (principal)
CPT/HCPCS: 70551

== ENCOUNTER → 2025-06-04 18:02 | Outpatient (BNV) | payer MEDICARE, OTHER, SELFPAY | PROVIDERS: PCP Nurse Practitioner Family; Visit Provider Radiology Diagnostic Radiology | DX: G20.A1 Parkinson's disease without dyskinesia, without mention of fluctuations (principal); G31.9 Degenerative disease of nervous system, unspecified | CPT/HCPCS: 70551 ==